=== PATIENT | female | born 1960 | race Caucasian/White ===

== ENCOUNTER 2020-10-17 16:53 | Inpatient (IN) | payer MEDICARE, MEDICAID, SELFPAY ==
[~2020-10-17] VITALS: Ht 152.4 cm; Wt 158.3 kg
--- NOTE | 2020-10-17 16:53 | NUR ---
Patient [facility] ALS, triaged by RN. Waiting for an available bed.
[2020-10-17 17:25] VITALS: BP 121/93
--- NOTE | 2020-10-17 17:25 | NUR ---
Patient BIBA ALS, transferred to bed 5. RN evaluating patient at bedside.
--- NOTE | 2020-10-17 17:30 | NUR ---
60 YO F BIBA FROM HOME FOR C/C OF DESAT TO 78% ON 3L NC. PT HAS COPD AND NORMALLY USES 3L O2 AT HOME. PT ARRIVES TO BED 5 SATING AT 93% ON 3L NC, AUDIBLE WHEEZING HEARD DURING RESPIRATION, PT UNABLE TO SPEAK IN FULL SENTENCES. PT STATES SHE HAS HAD A COUGH FOR 1 WEEK, DENIES ANY OTHER COVID SYMTPOMS OR EXPOSURE TO COVID. PT PLACED ON HIDE MILL WORKER/PULSE OX. BED LOCKED AND IN LOWEST POSITION. SIDE RAILS X2. MED HX: COPD, HTN, DM2 NKA
--- NOTE | 2020-10-17 17:41 | NUR ---
Patient's daughter: Ros Rodriguez [phone].
--- NOTE | 2020-10-17 18:00 | NUR ---
LABS DRAWN AND TAKEN TO LAB
[2020-10-17] MEDS ORDERED: ALBUTEROL SULFATE/IPRATROPIU 3 ML SOL IH ONE (18:20)
[2020-10-17] MEDS ORDERED: methylPREDNISolone SS 125 MG/2 ML VIAL IVP ONE (18:20)
--- NOTE | 2020-10-17 18:20 | NUR ---
PHILIPP SWAB COLLECTED AND TAKEN TO LAB
--- NOTE | 2020-10-17 18:27 | NUR ---
Dr. Zhou is evaluating the patient at bedside.
--- NOTE | 2020-10-17 18:40 | NUR ---
RAD AT BEDSIDE
[2020-10-17 18:52] LABS: BASOPHILS % (AUTO) 0.3 % (0.0-2.0); EOSINOPHILS % (AUTO) 0.3 % (0.0-4.0); HEMATOCRIT 32.9 % (36-48); HEMOGLOBIN 10.6 g/dL (12.0-16.0); LYMPHOCYTES # (AUTO) 1.2 K/uL (2.5-16.5); MEAN CORPUSCULAR HEMOGLOBIN 29 pg (27-31); MEAN CORPUSCULAR HGB CONC 32 g/dL (33-37); MEAN CORPUSCULAR VOLUME 89.4 fL (80-94); MONOCYTES # (AUTO) 0.7 K/uL (0.8-1.0); MONOCYTES % (AUTO) 8.9 % (1.7-9.3); NEUTROPHILS # (AUTO) 6.3 K/uL (1.8-7.7); NEUTROPHILS % (AUTO) 76.5 % (42.2-75.2); PLATELET COUNT (AUTO) 256 K/uL (140-450); RED BLOOD CELL COUNT(AUTO) 3.67 MIL/uL (4.20-5.40); RED CELL DISTRIBUTION WIDTH 15.7 % (11.6-13.7); WHITE BLOOD COUNT (AUTO) 8.3 K/uL (4.8-10.8)
--- NOTE | 2020-10-17 19:00 | NUR ---
RT AT BEDSIDE
[2020-10-17 19:13] LABS: ALBUMIN 2.9 g/dL (3.4-5.0); CARBON DIOXIDE 27.2 mmol/L (21-32); CREATININE 1.8 mg/dL (0.6-1.3); POTASSIUM 4.2 mmol/L (3.5-5.1); TOTAL BILIRUBIN 0.3 mg/dL (0.0-1.0)
--- NOTE | 2020-10-17 19:15 | NUR ---
REPORT GIVEN TO HERBER CARSON. TRANSFER OF CARE AT THIS TIME.
--- NOTE | 2020-10-17 19:15 | NUR ---
report recieved from tray da silva. transfer of care at this time.
--- NOTE | 2020-10-17 19:18 | NUR ---
pt expressed she would like a f/c placed, ermd said made aware and stated pt may have f/c placed. order carried out.
[2020-10-17] MEDS ORDERED: AZITHROMYCIN 500 MG in DEXTROSE 5% 250 ML IV ONE (19:20)
--- NOTE | 2020-10-17 19:31 | NUR ---
BIPAP ADMINISTRATION BY RT AT BEDSIDE
--- NOTE | 2020-10-17 19:35 | NUR ---
Receiced a verbal order from Dr Zhou to initiate Bipap on patient after ABG result. Setting 09/18, R12, Fio2 35%.
--- NOTE | 2020-10-17 19:40 | NUR ---
rt at bedside placing pt on bipap.
--- NOTE | 2020-10-17 20:15 | NUR ---
16 f f/c placed using sterile technique with another rn assistance. pt tolerated well. urine output 250 cc, clear and steven.
--- NOTE | 2020-10-17 20:28 | NUR ---
gave pt water per request. pt desats from 98 to 81 without bipap mask. pt placed back on mask right away. increased work of breathing observed. pt instructed to take slow deep breaths. pt at 99% after interventions.
[2020-10-17] MEDS ORDERED: cefTRIAXone 1,000 MG VIAL ONE (21:21)
[2020-10-17] MEDS ORDERED: AZITHROMYCIN 500 MG INJ VIAL IV ONE (21:41)
[2020-10-17] MEDS ORDERED: MAG SULF 2000 MG/WATER PREMIX 50 ML IV PRN (21:45)
--- NOTE | 2020-10-17 22:20 | NUR ---
rt called to reinforce bipap.
--- NOTE | 2020-10-17 22:57 | NUR ---
pt sitting up, states she feels ok. vss. bed locked in lowest position. side rails x2. increased work of breathing cont.
[2020-10-17] MEDS ORDERED: ALBUTEROL SULFATE/IPRATROPIU 3 ML SOL IH SCH (23:00)
--- NOTE | 2020-10-17 23:26 | NUR ---
pt stated she takes lantus at home for dm2. left msg to dr. justyn carrington for insulin order, waiting for call back .
--- NOTE | 2020-10-17 23:54 | NUR ---
RECEIVED CALL BACK FROM FOR LANTUS 20 UNITS BEFORE BED AND TO PLACE PT ON SLIDING SCALE. ORDERS CARRIED OUT.
[2020-10-18] MEDS: INSULIN LISPRO SLIDING SCALE 100 UNITS/ML VIAL SUBQ PRN ×3 (00:19→21:56)
--- NOTE | 2020-10-18 00:29 | NUR ---
PT STATED SHE FEELS SHE HAS TO URINATE, F/C ADJUSTED. PT FEELS BETTER AFTER ADJUSTMENT.
--- NOTE | 2020-10-18 01:18 | NUR ---
F/C REMOVED PER PT REQUEST. BEDSIDE COMMODE PROVIDED.
--- NOTE | 2020-10-18 01:18 | NUR ---
PT ASSISTED TO BEDSIDE COMMODE, UNABLE TO URINATE. PT SITTING UP IN BED PER REQUEST.
--- NOTE | 2020-10-18 01:25 | NUR ---
pt assisted to lay back in bed.
--- NOTE | 2020-10-18 01:33 | NUR ---
pt expressed she feels anxious and cannot sleep. helped pt into comfortable position, turned lights off. pt stated she still feels anxious and would like medication to help her relax. left a msg to . waiting for call back.
--- NOTE | 2020-10-18 01:41 | NUR ---
CALLED BACK RECEIVED ORDERS FOR XANAX 0.25 MG PO BID PRN. ORDERS CARRIED OUT.
[2020-10-18] MEDS: ALPRAZolam 0.25 MG TAB PO PRN ×3 (01:53→21:31)
--- NOTE | 2020-10-18 02:40 | NUR ---
RT AT BEDSIDE.
[2020-10-18] MEDS: ALBUTEROL SULFATE/IPRATROPIU 3 ML SOL IH SCH ×3 (02:44→13:00)
--- NOTE | 2020-10-18 03:15 | NUR ---
PT IS ANXIOUS, REMOVING BIPAP MASK, DESATS TO 86%. PT STATES SHE NEEDS TO URINATE, INSTRUCTED TO URINATE ON PAD AND WE CAN CHANGE HER AFTER. PT IS IN SIDE-LYING POSITION, INCREASED WORK OF BREATHING OBSERVED. PT IS SWEATING AND STATING SHE FEELS HOT. O2 SAT WITH BIPAP AT 90%. RT CALLED TO REINFORCE BIPAP MASK.
--- NOTE | 2020-10-18 04:15 | NUR ---
ANXIOUSNESS CONT. PT IS RESTLESS, PT CONTS TO REMOVE BIPAP. PT IN SIDE LYING POSITION. MSTOMASA NAVARRO. WAITING TO REPONSE.
--- NOTE | 2020-10-18 04:41 | NUR ---
PT IS YELLING AND CRYING STATING SHE FEELS ANXIOUS. WAITING FOR CALL BACK FROM DR. VELAZQUEZ. Addendum: 10/18/20 at 0443 by Onaro REDUCED STIMULI IN ROOM TO HELP REDUCE ANXIOUSNESS.
--- NOTE | 2020-10-18 04:46 | NUR ---
RECEIVED CALL BACK FROM DR. VELAZQUEZ, ORDER FOLLOWS- ATIVAN 2MG IVP Q4HRS PRN. ORDER CARRIED OUT.
[2020-10-18] MEDS: LORazepam 2 MG/ML VIAL IVP PRN ×3 (04:57→21:30)
--- NOTE | 2020-10-18 05:02 | NUR ---
PT GIVEN ATIVAN PRN ORDERED FOR ANXIOUSNESS. PT HAS STOPPED YELLING. PT IS IN SIDE-LYING POSITION, EYES CLOSED, EQUAL RISE AND FALL OF CHEST WALL. SIDE RAILS X2, AND BED LOCKED IN LOWEST POSITION.
--- NOTE | 2020-10-18 05:19 | NUR ---
RT AT BEDSIDE.
[2020-10-18 05:40] VITALS: BP 125/63
--- NOTE | 2020-10-18 05:45 | NUR ---
CHANGED PT. ONLY URINE OBSERVED. PT CLEANED, SHEETS CHANGED. PT IN STABLE CONDITION. VSS. BED LOCKED IN LOWEST POSITION, SIDE RAILS X2.
--- NOTE | 2020-10-18 06:00 | NUR ---
PT REMOVED BIPAP. RT REPOSITIONED.
--- NOTE | 2020-10-18 06:00 | NUR ---
PT MASK RE-FIT TO PT. PT HAD SOME INCREASED WOB AND SETTINGS WERE TITRATED TO 13/6 RATE FIO2 REMAIN THE SAME. ED RN AND ED DR AWARE. PT MAINTAINED SPO2 >90% AT THIS TIME. WILL ENDORSE TO DAYSHIFT.
--- NOTE | 2020-10-18 06:39 | NUR ---
F/C REINSERTED USING STERILE TECHINQUE. 600 CC OF CLEAR YELLOW URINE RETURNED. PT TOLERATED WELL.
[2020-10-18] MEDS: BUDESONIDE 0.5 MG/2 ML NEBU INH SCH (07:01)
--- NOTE | 2020-10-18 07:22 | NUR ---
PATIENT HAS BEEN SCREENED AND CATEGORIZED MODERATE NUTRITION RISK. PATIENT WILL BE SEEN WITHIN 3-5 DAYS OF ADMISSION. 10/20/20 - 10/22/20 KULWINDER LABOY MBA, RD
--- NOTE | 2020-10-18 07:30 | NUR ---
REPORT GIVEN TO HERBER ZEPEDA. TRANSFER OF CARE AT THIS TIME.
--- NOTE | 2020-10-18 07:47 | NUR ---
PT ALERT AND AWAKE, BREATHING LABORED AND EVEN ON BIPAP. ERMD MADE AWARE
[2020-10-18] MEDS ORDERED: CRUSHER, PILL MC ONE (08:16)
[2020-10-18] MEDS: DOCUSATE SODIUM 100 MG GELCAP PO SCH (08:18)
[2020-10-18] MEDS: DEXAMETHASONE 4 MG TAB PO SCH (08:18)
--- NOTE | 2020-10-18 08:24 | NUR ---
PT AOX3 TO NAME, , PLACE. PT TOOK OFF MASK AGAIN, PER PREVIOUS NURSE PT KEEPS TAKING OFF MASK. PT INFORMED MUST KEEP MASK ON.
[2020-10-18 10:31] LABS: BASOPHILS % (AUTO) 0.2 % (0.0-2.0); HEMATOCRIT 32.4 % (36-48); HEMOGLOBIN 10.6 g/dL (12.0-16.0); LYMPHOCYTES # (AUTO) 1.1 K/uL (2.5-16.5); LYMPHOCYTES % (AUTO) 13.7 % (20.5-51.1); MEAN CORPUSCULAR HEMOGLOBIN 29 pg (27-31); MEAN CORPUSCULAR HGB CONC 33 g/dL (33-37); MEAN CORPUSCULAR VOLUME 88.6 fL (80-94); MONOCYTES # (AUTO) 0.5 K/uL (0.8-1.0); MONOCYTES % (AUTO) 6.9 % (1.7-9.3); NEUTROPHILS # (AUTO) 6.2 K/uL (1.8-7.7); NEUTROPHILS % (AUTO) 79.2 % (42.2-75.2); PLATELET COUNT (AUTO) 279 K/uL (140-450); RED BLOOD CELL COUNT(AUTO) 3.66 MIL/uL (4.20-5.40); RED CELL DISTRIBUTION WIDTH 15.5 % (11.6-13.7); WHITE BLOOD COUNT (AUTO) 7.8 K/uL (4.8-10.8)
[2020-10-18 10:44] VITALS: BP 153/91
[2020-10-18 11:15] LABS: ALBUMIN 2.8 g/dL (3.4-5.0); ANION GAP 16.4 (8-16); CARBON DIOXIDE 24.5 mmol/L (21-32); CREATININE 1.2 mg/dL (0.6-1.3); POTASSIUM 4.9 mmol/L (3.5-5.1); TOTAL BILIRUBIN 0.2 mg/dL (0.0-1.0)
--- NOTE | 2020-10-18 11:41 | NUR ---
SOCIAL WORK NOTE: PATIENT HAS NO CONTACT INFORMATION. SW CONTACTED RN BUT NO EMERGENCY CONTACTS WERE AVAILABLE. Addendum: 10/19/20 at 1143 by Cirilo Hu Patient's Orientation Unable To Assess Information Provided By INDIAMAL MCCABE - DAUGHTER Comments SW WAS UNABLE TO MEET PATIENT AT BEDSIDE TO COMPLETE ASSESSMENT. SW COMPLETED ASSESSMENT WITH DAUGHTER. Youth Services Librarian, Realtionship and Phone Number [place] MCCABE DAUGHTER [phone] [facility] Power of Research Program Assistant No Does Patient Have a POLST No Identifying Problems No Social Work Triggers Is A Social Work Consult Needed No Mandate Report Filed No Explanation Of Identifying Problems PATIENT IS A 60-YEAR-OLD FEMALE ADMITTED FOR COVID. PATIENT HAS PMHX OF CARDIAC DISORDERS, COPD, DIABETES, AND HYPERTENSION. Admitted From Home Pre-Admission Level Of Functioning Status Assist With ADL Level Of Functioning Comment DAUGHTER REPORTED SHE ASSISTS PATIENT SHOWERING. Prior Resources/Services Used In Last 12 Months No Prior Resources Used Prior DME Home Oxygen Walker Dialysis Comments N/A Living Situation Lives With Family House Patient Had Caregiver No Home Support No Caregiver Issues Financial Issues No Known Financial Issue Referral To The Financial Counselor Needed No Factors/Needs No D/C Needs Identified Pt/Rep Participated In Discharge Plan Yes Patient/Family Agress With Discharge Plan Yes Discharge Plan Comments TENTATIVE DISCHARGE PLAN IS FOR PATIENT TO RETURN HOME. DC Plan Status Initiated
--- NOTE | 2020-10-18 13:00 | NUR ---
DR LABOY MADE AWARE PT STILL ALTERED. STATES THAT ORDER WAS FOR CONVALESCENT PLASMA NOT PRBC
--- NOTE | 2020-10-18 13:02 | NUR ---
Nina melendez in [facility] - 10/18/20 at 1602 by MEDJJ PER LAB DOES NOT HAVE CONVALESCENT PLASMA YET
--- NOTE | 2020-10-18 13:03 | NUR ---
PER LAB DOES NOT HAVE CONVALESCENT PLASMA YET
[2020-10-18 14:09] VITALS: BP 148/93
[2020-10-18] MEDS ORDERED: FLUO10CA21 PO (15:14)
[2020-10-18] MEDS ORDERED: FERR-21 PO (15:14)
[2020-10-18] MEDS ORDERED: BETA1CRE5 TP (15:14)
[2020-10-18] MEDS ORDERED: BENZ-196 PO (15:14)
[2020-10-18] MEDS ORDERED: INSU100S22 SUBQ (15:14)
[2020-10-18] MEDS ORDERED: CIPR500T4 PO (15:14)
[2020-10-18] MEDS ORDERED: CARI350T PO (15:14)
[2020-10-18] MEDS ORDERED: METF1TAB5 PO (15:14)
[2020-10-18] MEDS ORDERED: ACET-9536 PO (15:14)
[2020-10-18] MEDS ORDERED: CLON2TAB10 PO (15:14)
[2020-10-18] MEDS ORDERED: AMLO10TA89 PO (15:14)
[2020-10-18] MEDS ORDERED: IBUP200C97 PO (15:14)
[2020-10-18] MEDS ORDERED: METO50TA20 PO (15:14)
[2020-10-18] MEDS ORDERED: NITR0.4T2 SL (15:14)
[2020-10-18] MEDS ORDERED: ASPI-1205 PO (15:14)
[2020-10-18] MEDS ORDERED: SPIMDI INH (15:14)
[2020-10-18] MEDS ORDERED: CYCL0.052 OP (15:14)
[2020-10-18] MEDS ORDERED: FURO-570 PO (15:14)
[2020-10-18] MEDS ORDERED: OMEP20TC10 PO (15:14)
[2020-10-18] MEDS ORDERED: [UNRECOGNIZED DRUG - CODE] PO (15:14)
--- NOTE | 2020-10-18 16:02 | NUR ---
PT REMAINS CONFUSED, PLACED BACK ON BIPAP MASK MULTIPLE TIMES. O2 SATURATION 95% ON BIPAP
--- NOTE | 2020-10-18 17:19 | NUR ---
RT REMINDED BREATHING TREATMENT NOT COMPLETED
--- NOTE | 2020-10-18 18:00 | NUR ---
1300ML CLEAR URINE FROM CATH
--- NOTE | 2020-10-18 18:30 | NUR ---
dr rendon informed of pt status of continued confusion and taking off mask
[2020-10-18 19:00] VITALS: BP 138/84
--- NOTE | 2020-10-18 19:17 | NUR ---
REPORT GIVEN TO CHRISTIANO, TRANSFER OF CARE AT THIS TIME
--- NOTE | 2020-10-18 19:30 | NUR ---
REPORT RECEIVED FROM KATELYN CRAVEN FOR CONTINUITY OF CARE.
--- NOTE | 2020-10-18 20:00 | NUR ---
PT PRESENTS LAYING IN BED, ON BIPAP O2 SAT AT THIS TIME 94%. HEART RATE OF 124/MIN. RR OF 45/MIN. PT PRESENTS ANXIOUS AND RESTLESS ATTMEPTING TO REMOVE HER BIPAP MASK. ON SOFT RESTRAINTS. PER HERBER ZEPEDA PT WAS PLACED DUE TO CONSTANT REMOVAL OF BIPAP AND DESATURATION. ON CARDIAC MONITORING, BP MONITORING AND PULSE OXIMETRY. BED LOCKED AND IN LOWEST POSITION. PT WAS REPOSITIONED AND NEW GOWN PLACED ON PT. CALL LIGHT WAS GIVEN AND AT ARMS LENGTH. CIRCULATION CHECKS AT THIS TIME SKIN IS INTACT AND RADIAL PULSES +2 STRONG BILAT. ALL NEEDS MEET PRIOR TO EXIT WILL CONTINUE TO MONITOR.
--- NOTE | 2020-10-18 20:16 | NUR ---
Pt was repositioned and adjusted for comfort. Still continues to be anxoius/restless. Will continue to monitor.
[2020-10-18] MEDS ORDERED: AZITHROMYCIN 500 MG INJ VIAL IV ONE (20:17)
[2020-10-18] MEDS: INSULIN LANTUS 100 UNITS/ML 10 ML VIAL SUBQ SCH (20:30)
[2020-10-18] MEDS: AZITHROMYCIN 500 MG in DEXTROSE 5% 250 ML IV SCH (21:00)
--- NOTE | 2020-10-18 21:25 | NUR ---
Pt pulled on her IV site. Bleeding was noted at site pressure was applied and dressing was placed. New IV started on L AC 20 G, site was patent flushed with 10 ml of 0.9% NS. No c/o pain or discomfort.
[2020-10-18] MEDS: QUEtiapine FUMARATE 25 MG TAB PO SCH (21:29)
--- NOTE | 2020-10-18 22:18 | NUR ---
Pt was repositioned and adjusted for comfort. Still continues to be anxoius/restless re-adjusted BIPAP mask as pt continues to remove BIPAP mask. Will continue to monitor.
--- NOTE | 2020-10-18 23:00 | NUR ---
Spoke with Christiano Ruddy (Daughter) contact info: and provided updated status.
--- NOTE | 2020-10-18 23:15 | NUR ---
CALLED RT FOR EVALUATION OF PT.
--- NOTE | 2020-10-18 23:20 | NUR ---
Respiratory Therapist at bedside for respiratory intervention. Patient still anxious/restless attempting to remove BIPAP at this time. Pulling an tugging on tubing. Called Dr. Bales for orders at [facility] group: ext: "[phone]" spoke with Rica stated she would page Dr. Glover.
[2020-10-18] MEDS ORDERED: DEXTROSE 50% 50 ML SYR IVP PRN (23:30)
[2020-10-18] MEDS ORDERED: HALOPERIDOL IM 5 MG/ML VIAL IM SCH (23:30)
[2020-10-18] MEDS ORDERED: INSULIN LISPRO SLIDING SCALE 100 UNITS/ML VIAL SUBQ PRN (23:30)
--- NOTE | 2020-10-18 23:30 | NUR ---
CALLED TO BEDSIDE PT PULLED BIPAP MASK OFF. MASK WAS MANGKED AND REPLACED W/ A NEW ONE. PT WAS RE-ASSURED AND ENCOURAGED TO KEEP MASK ON. PT APPEARS TO BE VERY ANXIOUS/RESTLESS. MASK WAS REPLACED ON PT MULTIPLE TIMES AT THIS TIME DUE TO PT REMOVING MASK.
--- NOTE | 2020-10-18 23:36 | NUR ---
Recived called back from Dr. Bales and notified that pt continues to have severe anxiety/restlessness and that pt was given Ativan 2mg IVP, Xanax 0.25mg po and Seroquel 12.5mg. Gave new orders for Haldol 5mg IM.
[2020-10-18 23:55] VITALS: BP 147/59
[2020-10-19] VITALS (13 sets, daily range): BP systolic 105–173; BP diastolic 65–79
--- NOTE | 2020-10-19 00:35 | NUR ---
Pt was repositioned and adjusted for comfort. Still continues to be anxoius/restless re-adjusted BIPAP mask as pt continues to remove BIPAP mask. Will continue to monitor.
--- NOTE | 2020-10-19 01:00 | NUR ---
Patient will be admitted to care of Dr. Samson. Admited to Telemetry. Will go to room 119B. Belongings list completed. Report given to Loretta RN for continuity of care. All covid precautions in place. Taken by RT and EMT.
--- NOTE | 2020-10-19 01:10 | NUR ---
ADMITTED 60 F, VIA GURNEY FROM ER. AOX1-2, WITH CONFUSION, ON BIPAP, O2 SAT 94%, ISO PRECAUTION IN PLACE, SAFETY MEASURES IN PLACE, PLAN OF CARE DISCUSSED, CALL LIGHT WITHIN REACH. PT IS TRYING TO TAKE OFF HER BIPAP, EDUCATED PT THE IMPORTANCE OF O2/BIPAP, STILL PT, TRIED TO TAKE OFF, STAYED W/ PATIENT UNTIL SOMEONE REPLACES ME.
[2020-10-19] MEDS: LORazepam 2 MG/ML VIAL IVP PRN ×2 (01:33→12:06)
--- NOTE | 2020-10-19 01:33 | NUR ---
PT IS ANXIOUS, ATIVAN PRN GIVEN ORDERED, PT IS ON 1:1 SITTER ORDERED.
[2020-10-19] MEDS ORDERED: HALOPERIDOL IM 5 MG/ML VIAL IM ONE (04:30)
[2020-10-19] MEDS ORDERED: QUEtiapine FUMARATE 25 MG TAB PO SCH (04:40)
--- NOTE | 2020-10-19 05:01 | NUR ---
PT IS AGITATED, CONSTANTLY MOVING AND TRIES TO TAKE OFF HER BIPAP, EVEN W/ SITTER, PT IS SO STRONG, INFORMED TOWER AIR TRAFFIC CONTROL SPECIALIST DR. RAUSCH RE:PT CONDITION, ORDERED HALDOL IM X1 AND SEROQUEL 25MG, NOTED AND CARRIED OUT.
[2020-10-19] MEDS: QUEtiapine FUMARATE 25 MG TAB PO PRN (06:31)
[2020-10-19] MEDS: BLOOD GLUCOSE MONITORING 1 DEV DEV FS SCH ×4 (06:36→21:49)
[2020-10-19] MEDS: INSULIN LISPRO SLIDING SCALE 100 UNITS/ML VIAL SUBQ PRN ×3 (06:38→21:51)
--- NOTE | 2020-10-19 06:39 | NUR ---
BLOOD SUGAR 333, HUMALOG 8 U GIVEN PER SLIDING SCALE, CON'T ON 1:1 SITTER, O2 SAT WNL, CALL LIGHT WITHIN REACH. PERINEAL CARE RENDERED, TOLERATED WELL, BM X1.
--- NOTE | 2020-10-19 07:30 | NUR ---
PT RM, ENDORSED TO AM SHIFT RN FOR CONTINUITY OF CARE. ALSO ENDORSED THAT FAMILY REFUSED PLASMA CONVALESCENT, THEY WILL LET US KNOW IF THEY WANT TO TAKE IT IN THE FUTURE, BUT NOT FOR NOW.
--- NOTE | 2020-10-19 07:31 | NUR ---
RECEIVED REPORT FROM SALES ADVISORY MANAGER RN FOR CONTINUITY OF CARE. PATIENT IS BEDBOUND, WITH SITTER AT BEDSIDE. AGITATED. EYES CLOSE AND TRYING TO PULL OUT THE BIPAP, EVEN WITH SITTER. PER SALES ADVISORY MANAGER RN, SEROQUEL WAS GIVEN @ 0631. RESPIRATORY RATE 30, VERY CONFUSED. O2 SAT 92%. WILL CONTINUE TO MONITOR.
[2020-10-19 07:41] LABS: HEMOGLOBIN 10.7 g/dL (12.0-16.0); LYMPHOCYTES # (AUTO) 1.1 K/uL (2.5-16.5); LYMPHOCYTES % (AUTO) 7.3 % (20.5-51.1); MEAN CORPUSCULAR HEMOGLOBIN 29 pg (27-31); MEAN CORPUSCULAR HGB CONC 32 g/dL (33-37); MEAN CORPUSCULAR VOLUME 89.2 fL (80-94); MONOCYTES # (AUTO) 1.7 K/uL (0.8-1.0); MONOCYTES % (AUTO) 11.8 % (1.7-9.3); NEUTROPHILS # (AUTO) 11.6 K/uL (1.8-7.7); NEUTROPHILS % (AUTO) 80.9 % (42.2-75.2); PLATELET COUNT (AUTO) 396 K/uL (140-450); RED CELL DISTRIBUTION WIDTH 15.7 % (11.6-13.7); WHITE BLOOD COUNT (AUTO) 14.4 K/uL (4.8-10.8)
[2020-10-19 08:21] LABS: ANION GAP 18.5 (8-16); CARBON DIOXIDE 23.4 mmol/L (21-32); CREATININE 1.2 mg/dL (0.6-1.3); POTASSIUM 4.9 mmol/L (3.5-5.1); TOTAL BILIRUBIN 0.4 mg/dL (0.0-1.0)
[2020-10-19] MEDS: ALBUTEROL SULFATE/IPRATROPIU 3 ML SOL IH SCH ×3 (08:42→21:48)
[2020-10-19] MEDS: BUDESONIDE 0.5 MG/2 ML NEBU INH SCH ×2 (08:42→21:48)
[2020-10-19] MEDS ORDERED: INSULIN LANTUS 100 UNITS/ML 10 ML VIAL SUBQ SCH (09:00)
[2020-10-19] MEDS: FUROSEMIDE 20 MG/2 ML VIAL IVP SCH (09:56)
--- NOTE | 2020-10-19 09:56 | NUR ---
LASIX GIVEN VIA IVP. PATIENT ASLEEP. ORAL MEDICATIONS WASTED. EARLIER FEVER WAS NOTED BUT TEMP COOL DOWN AFTER COOLING MEASURES/ICE PACKS. PATIENT IS ON BIPAP, O2 SAT 91%. SITTER AT BEDSIDE. WILL CONTINUE TO MONITOR.
[2020-10-19] MEDS: DOCUSATE SODIUM 100 MG GELCAP PO SCH ×2 (09:57→09:58)
[2020-10-19] MEDS: QUEtiapine FUMARATE 25 MG TAB PO SCH ×3 (09:57→21:26)
[2020-10-19] MEDS: DEXAMETHASONE 4 MG TAB PO SCH ×2 (09:57→09:58)
[2020-10-19] MEDS: APIXABAN 2.5 MG TAB PO SCH ×2 (09:57→21:26)
[2020-10-19] MEDS ORDERED: ACETAMINOPHEN 650 MG SUPP RC ONE (11:50)
[2020-10-19] MEDS ORDERED: ACETAMINOPHEN 650 MG SUPP RC PRN (11:50)
--- NOTE | 2020-10-19 11:50 | NUR ---
CALLED TO BEDSIDE BY RT JASSI TO ASSESS THE PATIENT. PT ON BIPAP AT 100% WITH RR IN THE HIGH 30S, SLIGHTLY AROUSABLE AND FEBRILE. HR 130S BP 145/68. ADMINISTERED 2MG ATIVAN IVP AND RECTAL ACETAMINOPHEN SUPPOSITORY PER MD ORDER WITH NI IMPROVEMENT UPON ATIVAN ADMINISTRATION. MD LEONARD WAS ROUNDING ON THE PATIENT WHEN I CALLED FOR POSSIBLE INTUBATION.
--- NOTE | 2020-10-19 12:10 | NUR ---
RAPID RESPONSE CALLED TO GET ALL MEDICAL PERSONNEL TO THE ROOM FOR INTUBATION. PT RR 35-40 ON 100% BIPAP WITH SPO2 85%. DIFFICULT INTUBATION . 20 ETOMIDATE AND 40 OF ROCURONIUM ADMINISTERED. PT INTUBATED AT 1220, 24CM AT THE LIP, SIZE 7.5.
[2020-10-19] MEDS ORDERED: ETOMIDATE 20 MG/10 ML VIAL IVP ONE (12:16)
[2020-10-19] MEDS ORDERED: ROCURONIUM 50 MG/5 ML VIAL IV ONE (12:17)
--- NOTE | 2020-10-19 12:20 | NUR ---
OG TUBE PLACED, KUB AND CXR STAT PLACED. BSWR ORDER FROM MD LEONARD PLACED. VENT SETTINGS A/C PRVC FIO2 100%, VT 350, PEEP 12, RATE OF 22. SPO2 92%.
[2020-10-19] MEDS ORDERED: PROPOFOL 1000 MG/100 ML PREMIX 100 ML IV ONE (12:26)
--- NOTE | 2020-10-19 12:31 | NUR ---
PT INTUBATED BY , 7.5 ETT SECURE @25 TEETH/GUM. COLOR CHANGED DETECTED ON CO2 DETECTOR. BILATERAL BREATH SOUNDS HEARD ON AUSCULTATION. CXR TO BE ORDERED TO CONFIRM PROPER PLACEMENT.
[2020-10-19] MEDS: PROPOFOL 1000 MG/100 ML PREMIX 100 ML IV PRN ×4 (12:44→23:35)
[2020-10-19] MEDS: NACL 0.9% 1,000 ML IV SCH ×2 (12:47→18:43)
--- NOTE | 2020-10-19 13:40 | NUR ---
UPDATED PTS' DAUGHTER VIA PHONE REGARDING PATIENT'S STATUS AND INTUBATION AT THIS TIME. DAUGHTER VERBALIZED UNDERSTANDING, ALL QUESTIONS ANSWERED. LET HER KNOW THAT SHE WILL BE TRANSFERRED TO ICU BY THE END OF THE SHIFT AND CAN CALL BETWEEN THE HOURS OF 1-2PM AND 11P-12A FOR UPDATES IF NOT CALLED BEFORE THEN.
--- NOTE | 2020-10-19 14:19 | NUR ---
ETT PULLED BACK DUE TO INADEQUATE PLACEMENT ON CXR. ETT 7.5 NOW SECURED @22 TEETH/GUM. NURSE MADE AWARE.
[2020-10-19] MEDS: INSULIN LANTUS 100 UNITS/ML 10 ML VIAL SUBQ SCH (14:25)
--- NOTE | 2020-10-19 14:39 | NUR ---
GAVE TELEPHONE READ BACK RESULTS OF ABG TO DR. WOOD. DR STATES TO INCREASE VT TO 500 AND DECREASE RATE TO 20. REPEAT ABG TOMORROW.
--- NOTE | 2020-10-19 15:04 | NUR ---
VENT SETTINGS CHANGED PER MD LEONARD, VT FROM 350 TO 500 AND PEEP FROM 12 TO 8. PT SPO2 IS 100% ON 100% FIO2. PT TOLERATING WELL. RADIOLOGY FOR STAT CXR AT BEDSIDE FOR REVERIFICATION OF PLACEMENT OF ETT.
--- NOTE | 2020-10-19 15:04 | NUR ---
PER VENT SETTINGS CHANGED NEW SETTINGS: PRVC 20, VT500, PEEP TITRATED TO 8cmH2O AND FIO2 100%. PEAK PRESSURES EXPLAINED TO AND PHYSICIAN STATES TO PLACE PT ON THESE VENT SETTINGS. CHANGES EXPLAINED TO NURSE. WILL CONTINUE TO MONITOR.
--- NOTE | 2020-10-19 16:19 | NUR ---
UPDATED DAUGHTER, , REGARDING PICC LINE PLACEMENT ORDERED BY MD WHICH SHE CONSENTED TO AND PT HAS A HISTORY OF PICC PLACEMENT X1 YEAR. EDUCATED ON PT MOVING TO ICU BY THE END OF SHIFT. ANSWERED ALL QUESTIONS, VERBALIZED UNDERSTANDING.
--- NOTE | 2020-10-19 18:30 | NUR ---
PT REMAINS ON DOCUMENTED VENT SETTINGS. PT NOT IN ANY DISTRESS AT THIS TIME. ETT IS SECURE WITH A PATENT AIRWAY.
--- NOTE | 2020-10-19 18:44 | NUR ---
STARTED A NEW BOTTLE OF PROPOFOL, CONTINUE WITH 35 MCG/KG/MIN AND STARTED A NEW BAG IVF NS AT 60 ML/HR. CHANGED ALL TUBINGS.
--- NOTE | 2020-10-19 19:25 | NUR ---
RECEIVED BEDSIDE REPORT FROM MILLA CRAVEN. PATIENT SEDATED RASS -3. ETT TO VENT AC/PCR FIO2 100%, PEEP 8, RATE 20, VT 500, SATURATING 94%. NO DISTRESS NOTED. DRY WEIGHT 158.7 KG. SKIN IS WARM AND DRY. LEFT AC 20G NOTED INFUSING PROPOFOL 35MCG/KG/MIN AND NS AT 60CC/HR. OGTUBE NOTED. FOELY CATHETER DRAINING YELLOW URINE NOTED. PLAN OF CARE UP TO DATE. ALL SAFETY MEASURES IN PLACE. BED IS AT LOW POSITION. CALL LIGHT WITHIN REACH. WILL CONTINUE TO MONITOR.
--- NOTE | 2020-10-19 19:40 | NUR ---
RECEIVED PATIENT FROM DAY SHIFT ON DOCUMENTE VENT SETTINGS VENT PLUGGED INTO RED OUTLET. BMV AT BEDSIDE.ETT SECURED. ALARMS SET. WILL CONT TO MONITOR
[2020-10-19] MEDS: AZITHROMYCIN 500 MG in DEXTROSE 5% 250 ML IV SCH (21:27)
--- NOTE | 2020-10-19 21:30 | NUR ---
CHECKED OGTUBE RESIDUAL. OBTAINED 0CC. PROVIDED ORAL CARE. PATIENT TOLERATED IT WELL. WILL CONTINUE TO MONITOR
--- NOTE | 2020-10-19 21:40 | NUR ---
ALL SCHEDULED MEDS WERE GIVEN PER ORDER NO ASE NOTED. WILL CONTINUE TO MONITOR
--- NOTE | 2020-10-19 22:00 | NUR ---
PT IS SEDATED. REMOVE RESTRAINT FOR NOW
[2020-10-20] VITALS (28 sets, daily range): BP systolic 133–159; BP diastolic 68–95
[2020-10-20] MEDS: ALBUTEROL SULFATE/IPRATROPIU 3 ML SOL IH SCH ×3 (00:10→20:16)
[2020-10-20] MEDS: PROPOFOL 1000 MG/100 ML PREMIX 100 ML IV PRN ×9 (02:34→23:57)
--- NOTE | 2020-10-20 03:30 | NUR ---
PROVIDED MORNING CARE
--- NOTE | 2020-10-20 05:00 | NUR ---
PATIENT HAS A TEMPERATURE OF 100.4 PRN TYLENOL GIVEN PER ORDER. WILL CONTINUE TO MONITOR
[2020-10-20] MEDS: ACETAMINOPHEN 325 MG TAB PO PRN (05:05)
[2020-10-20 05:44] LABS: ALBUMIN 2.6 g/dL (3.4-5.0); ANION GAP 12.5 (8-16); CARBON DIOXIDE 28.2 mmol/L (21-32); CREATININE 1.1 mg/dL (0.6-1.3); POTASSIUM 4.7 mmol/L (3.5-5.1); TOTAL BILIRUBIN 0.6 mg/dL (0.0-1.0)
--- NOTE | 2020-10-20 06:00 | NUR ---
RECHECKED PATIENT TEMP. PT TEMP 99.1
[2020-10-20 06:23] LABS: BASOPHILS % (AUTO) 0.4 % (0.0-2.0); EOSINOPHILS % (AUTO) 0.1 % (0.0-4.0); HEMOGLOBIN 10.3 g/dL (12.0-16.0); LYMPHOCYTES # (AUTO) 0.8 K/uL (2.5-16.5); LYMPHOCYTES % (AUTO) 8.6 % (20.5-51.1); MEAN CORPUSCULAR HEMOGLOBIN 29 pg (27-31); MEAN CORPUSCULAR HGB CONC 32 g/dL (33-37); MEAN CORPUSCULAR VOLUME 89.9 fL (80-94); MONOCYTES # (AUTO) 0.9 K/uL (0.8-1.0); MONOCYTES % (AUTO) 8.8 % (1.7-9.3); NEUTROPHILS % (AUTO) 82.1 % (42.2-75.2); PLATELET COUNT (AUTO) 372 K/uL (140-450); RED BLOOD CELL COUNT(AUTO) 3.56 MIL/uL (4.20-5.40); RED CELL DISTRIBUTION WIDTH 15.8 % (11.6-13.7); WHITE BLOOD COUNT (AUTO) 9.8 K/uL (4.8-10.8)
[2020-10-20] MEDS: BLOOD GLUCOSE MONITORING 1 DEV DEV FS SCH ×4 (06:39→21:00)
[2020-10-20] MEDS: INSULIN LISPRO SLIDING SCALE 100 UNITS/ML VIAL SUBQ PRN ×3 (06:41→17:37)
--- NOTE | 2020-10-20 06:59 | NUR ---
FNS CONSULT FOR TUBE FEEDING RECEIVED ON 10/20/20. PATIENT HAS BEEN RE-SCREENED BY RD AND NOW CATEGORIZED HIGH NUTRITION RISK. PATIENT WILL BE SEEN TODAY 10/20/[address] ASSESSMENT/RECOMMENDATION FOR TF WILL BE CHARTED. KULWINDER LABOY MBA, RD
--- NOTE | 2020-10-20 07:15 | NUR ---
RECEIVED REPORT FROM NIGHT RN FOR CONTINUITY OF CARE,PATIENT IS RIGHT SIDE-LYING, OFFLOAD PRESSURE WITH PILLOWS. PATIENT IS SEDATED RASS -3, FLACC 0, RESPIRATION EVEN, SHALLOW, TACHYPNEA,LUNGS SOUNDS DIMINISHED, ON ETT TO VENT, A/C PRVC FIO2 100 RATE 20 PEEP 8, SPO2 99%. SKIN WARM TO TOUCH, REDNESS ON UNDER FLAP OF ABDOMEN, WILL NOTIFY MD DURING ROUNDING, APPLIED INTERDRY CLOTH. IV ON LAC 20G, CLEAN AND INTACT, INFUSING PROPOFOL AT 35 MCG/KG/MIN AND NS 60ML/HR, PICC PLACEMENT ORDER RECEIVED AND PENDING FOR MD SIGNATURE. GEORGE IN PLACE, DRAINING YELLOW URINE WITH GRAVITY, YELLOW CLOUDY URINE IN BAG NOTED. OGT IN PLACE, PENDING FOR FNS CONSULT TO START FEEDING. BILATERAL SOFT RESTRAINTS IN PLACE, CAPILLARY REFILLED < 3 SECONDS, NO SIGNS OF INJURY. SAFETY MEASURES IN PLACE, PLUG SAW OPERATOR IN PLACE, BED IN LOW POSITION, HOB ELEVATED 35 DEGREE, AND BED LOCKED. WILL CONTINUE TO MONITOR.
--- NOTE | 2020-10-20 07:27 | NUR ---
ENDORSED PATIENT TO DAY SHIFT NURSE AT BEDSIDE FOR CONTINUITY OF CARE
[2020-10-20] MEDS: BUDESONIDE 0.5 MG/2 ML NEBU INH SCH ×2 (07:55→20:15)
--- NOTE | 2020-10-20 08:46 | NUR ---
10/20/20 RD INITIAL ASSESSMENT COMPLETED PLEASE REFER TO NUTRITION ASSESSMENT UNDER CARE ACTIVITY FOR ESTIMATED NUTRITIONAL NEEDS. RD RECOMMENDATIONS: 1. RECOMMEND D/C REGULAR DIET; INAPPROPRIATE FOR CURRENT PT MEDICAL CONDITION. 2. RECOMMEND TF GLUCERNA 1.2@70MLS/HR - PROVIDES 2016KCALS & 100GM PROTEIN; SUFFICIENT TO MEET 100% OF PT NUTRITIONAL ESTIMATED NEEDS. (FOR RATE 70MLS/HR EQUIVALENT IS 16 DROPS/MINUTE IN CASE OF GRAVITY TUBE FEEDING) 3. START TF @30 MLS/HR. ADVANCE, TOLERATED, BY 10MLS/HR Q8 HRS TO REACH GOAL RATE OF 70. 4. RECOMMEND WATER FLUSH 150MLS Q 6HRS. 5. F/U 2-3 DAYS; HIGH RISK KULWINDER LABOY MBA, RD
[2020-10-20] MEDS ORDERED: CRUSHER, PILL MC ONE (08:50)
[2020-10-20] MEDS: FUROSEMIDE 20 MG/2 ML VIAL IVP SCH (08:55)
[2020-10-20] MEDS: QUEtiapine FUMARATE 25 MG TAB PO SCH ×2 (08:56→20:44)
[2020-10-20] MEDS: DOCUSATE SODIUM 100 MG GELCAP PO SCH (08:56)
[2020-10-20] MEDS: APIXABAN 2.5 MG TAB PO SCH ×2 (08:58→20:45)
[2020-10-20] MEDS: DEXAMETHASONE 4 MG TAB PO SCH (08:58)
[2020-10-20] MEDS: INSULIN LANTUS 100 UNITS/ML 10 ML VIAL SUBQ SCH (09:24)
--- NOTE | 2020-10-20 09:34 | NUR ---
CHECKED BLOOD SUGAR, 274, OGT RESIDUAL 20 ML,FLUSHED OGT TUBE WITH 15CC. ADMINISTERED MEDS PER MD ORDER, FLUSHED BEFORE AND AFTER MEDS. PROVIDED HYGIENE CARE, ORAL CARE, AND GEORGE CARE, CHG BATH PROVIDED. TEMP 99.5, PULSE 87, BP 159/87, ETT TO VENT, A/C PRVC FIO2 100 RATE 20 PEEP 8, SPO2 98%, FLACC 0. SAFETY MEASURES IN PLACE. WILL CONTINUE TO MONITOR.
--- NOTE | 2020-10-20 10:45 | NUR ---
DR LEONARD IS ROUNDING ON PATIENT, OBTAINED MD SIGNATURE FOR PICC LINE PLACEMENT. RECEIVED VERBAL ORDER FOR SECONDARY SEDATION VERSED RASS -3, WILL INPUT ORDER ACCORDINGLY.
--- NOTE | 2020-10-20 11:00 | NUR ---
CALLED [facility], INFORMED ORDER FOR PICC LINE PLACEMENT, PICC LINE RN IS EDUIN, AND TOLD THAT ETA IS AROUND [phone] TODAY.
[2020-10-20] MEDS ORDERED: MIDAZOLAM MDV 50 MG in NACL 0.9% 40 ML IV PRN (11:05)
[2020-10-20] MEDS ORDERED: MIDAZOLAM MDV 100 MG in NACL 0.9% 80 ML IV PRN (11:20)
--- NOTE | 2020-10-20 11:48 | NUR ---
DAUGHTER, TINA CALL CALLED, UPDATED HER ON PATIENT'S CONDITION.
--- NOTE | 2020-10-20 12:00 | NUR ---
CHECKED BLOOD SUGAR, 295, COVERED WITH 6 UNITS PER MD SLIDING SCALE.
--- NOTE | 2020-10-20 13:11 | NUR ---
RECEIVED [employer] CELL PHONE FROM SECURITY, WILL PLACE IT IN PATIENT'S ROOM PER DAUGHTER REQUESTED.
--- NOTE | 2020-10-20 16:21 | NUR ---
DR APARICIO IS ROUNDING ON PATIENT.
--- NOTE | 2020-10-20 16:45 | NUR ---
CHECKED BLOOD SUGAR, 323, COVERED 8 UNITS PER MD SLIDING SCALE, NO S/S OF HYPOGLYCEMIA, WILL CONTINUE TO MONITOR.
--- NOTE | 2020-10-20 20:16 | NUR ---
RECEIVED PATIENT FROM AM SHIFT. PATIENT WAS SEEN AND ASSESSED. FOUND PT IN SUPINE POSITION. PATIENT IS INTUBATED WITH ETT SIZE 7.5 AND SECURED WITH ANCHOR-FAST AT 23cm. PATIENT IS ON VENT SETTINGS: AC/PRVC RR 20, VT 500, PEEP 8, FiO2 85% WITH SPO2 OF 97%. AMBU BAG AT BEDSIDE. VENT IS PLUGGED IN RED OUTLET. ALARMS SET AND AUDIBLE TO ENVIRONMENT. SUCTIONED SMALL AMOUNT OF WHITE THIN SECRETIONS FROM ETT. AIRWAY IS PATENT. AUSCULTATION REVEALS BILATERAL DIMINISHED BREATH SOUNDS. PATIENT IS IN NO APPARENT RESPIRATORY DISTRESS AT THIS TIME. HHN TX GIVEN AND PT TOLERATING WELL. WILL CONTINUE TO MONITOR PATIENT.
[2020-10-20] MEDS: AZITHROMYCIN 500 MG in DEXTROSE 5% 250 ML IV SCH (20:45)
--- NOTE | 2020-10-20 20:48 | NUR ---
FOUND PT'S PHONE ON THE FLOOR ON A VIDEO CALL WITH FAMILY. PHONE WENT OFF. FAMILY CALLED THE NURSING STATION AND SHE WAS INFORMED PT'S PHONE IS OFF. FAMILY MEMBER ASKED HOW PT IS DOING AND SHE WAS TOLD TO CALL BACK LATER BECAUSE RN IS BUSY AT THIS TIME. RN WAS NOTIFIED.
[2020-10-20] MEDS: NACL 0.9% 1,000 ML IV SCH (22:00)
--- NOTE | 2020-10-20 23:10 | NUR ---
TITRATED FiO2 FROM 85% TO 80%. SPO2 98%. PT TOLERATING WELL. RN NOTIFIED. WILL CONTINUE TO MONITOR PT.
[2020-10-21] VITALS (19 sets, daily range): BP systolic 98–149; BP diastolic 57–88
[2020-10-21] MEDS: INSULIN LISPRO SLIDING SCALE 100 UNITS/ML VIAL SUBQ PRN ×3 (00:19→21:23)
[2020-10-21] MEDS: ALBUTEROL SULFATE/IPRATROPIU 3 ML SOL IH SCH ×4 (02:11→19:10)
--- NOTE | 2020-10-21 03:43 | NUR ---
TITRATED FiO2 FROM 80% TO 70%. SPO2 97%. PT TOLERATING WELL. RN NOTIFIED. WILL CONTINUE TO MONITOR PT.
[2020-10-21] MEDS: PROPOFOL 1000 MG/100 ML PREMIX 100 ML IV PRN ×5 (04:52→23:46)
[2020-10-21] MEDS: BUDESONIDE 0.5 MG/2 ML NEBU INH SCH ×2 (07:00→19:51)
[2020-10-21 07:28] LABS: ALBUMIN 2.2 g/dL (3.4-5.0); ANION GAP 11.2 (8-16); CARBON DIOXIDE 28.1 mmol/L (21-32); CREATININE 0.7 mg/dL (0.6-1.3); POTASSIUM 4.3 mmol/L (3.5-5.1); TOTAL BILIRUBIN 0.5 mg/dL (0.0-1.0)
[2020-10-21] MEDS: BLOOD GLUCOSE MONITORING 1 DEV DEV FS SCH ×4 (07:30→21:23)
--- NOTE | 2020-10-21 07:56 | NUR ---
RECEIVED INTUBATED WITH A 7.5 ETT SECURED @23 TEETH/GUM ON VENT. SETTINGS: PRVC 20, VT 500, PEEP 5 AND FIO2 TITRATED TO 60%. PT IS MOVING AROUND IN BED AGITATED AND NON SYNCHRONOUS WITH VENT. ALARMS ON AND FUNCTIONING. VENT IS PLUGGED INTO A RED OUTLET. AMBU BAG IS PRESENT NEAR BEDSIDE. WILL CONTINUE TO MONITOR.
[2020-10-21] MEDS: LORazepam 2 MG/ML VIAL IVP PRN (09:18)
[2020-10-21] MEDS: QUEtiapine FUMARATE 25 MG TAB PO SCH ×2 (09:30→21:12)
--- NOTE | 2020-10-21 10:25 | NUR ---
PT AGITATED MOVING AROUND IN BED NON SYNCHRONOUS WITH VENT. MULTIPLE MODES OF VENTILATION ATTEMPTED WITHOUT SUCCESS. PT SWITCHED TO PC DUE TO EXCESSIVELY HIGH PEAK PRESSURES/PLATEAU PRESSURES. NEW SETTINGS: Pinsp 30, R20, PEEP 8 AND FIO2 60%. VENTILATING PT VTE 400-430ml. WILL CONTINUE TO MONITOR.
[2020-10-21] MEDS: DEXAMETHASONE 4 MG TAB PO SCH (10:45)
--- NOTE | 2020-10-21 11:00 | NUR ---
PT INCREASED AGITATE TRY TO GET OUT OF BED AND PULL OUT THE LINE.INCREASE THE SEDATION AND GIVE MED ORDER SHE REMAIN AGITATED . AISHA MARC WAS CALL. HE ORDERED TO GIVE VECURENIUM 20 MG IV PUSH..
[2020-10-21] MEDS: APIXABAN 2.5 MG TAB PO SCH ×2 (11:02→21:12)
[2020-10-21] MEDS: FUROSEMIDE 20 MG/2 ML VIAL IVP SCH (11:07)
[2020-10-21] MEDS: DOCUSATE 100 MG/10 ML UDC GT SCH (11:09)
[2020-10-21] MEDS: ALPRAZolam 0.25 MG TAB PO PRN (11:10)
--- NOTE | 2020-10-21 11:20 | NUR ---
VECURENIUM 20MG GIVEN ORDERED.
[2020-10-21] MEDS: INSULIN LANTUS 100 UNITS/ML 10 ML VIAL SUBQ SCH (11:22)
--- NOTE | 2020-10-21 11:28 | NUR ---
FIO2 INCREASED TO 100% DUE TO SPO2 LOW 75%, NURSE MADE AWARE.
--- NOTE | 2020-10-21 11:30 | NUR ---
PT CALM SLEEPING, , DECREASE O2 SAT 77% RT WAS CALL TO MANAGE THE O2 SATURATION. .
[2020-10-21] MEDS ORDERED: VECURONIUM 10 MG VIAL IVP SCH (12:00)
--- NOTE | 2020-10-21 12:30 | NUR ---
PT. ADMITTED WITH LOW ELOY SCALE AND INTERTRIGO TO ABDOMINAL FOLD. POC DISCUSSED WITH PRIMARY RN. -CLEANSE ABDOMINAL FOLDS WITH MILD SOAP AND WATER, PAT DRY, APPLY NYSTATIN POWDERS BID AND PRN IF SOILING -APPLY HEEL PROTECTORS TO BOTH HEELS AT ALL TIMES -OFFLOAD BILATERAL HEELS BY PLACING PILLOWS UNDER CALVES UNLESS OTHERWISE CONTRAINDICATED -PRESSURE REDISTRIBUTION SURFACE THERAPY -TURN AND REPOSITION Q2H, OFFLOAD SACRALCOCCYX AND BUTTOCKS BY TURNING RIGHT AND LEFT -CONTINUE TO FOLLOW RD RECOMMENDATIONS
[2020-10-21] MEDS: NYSTATIN POW 100 MU/GM 15 GM BTL TP SCH (13:00)
[2020-10-21 13:47] LABS: BASOPHILS # (AUTO) 0.2 K/uL (0.00-0.22); BASOPHILS % (AUTO) 2.1 % (0.0-2.0); EOSINOPHILS % (AUTO) 0.1 % (0.0-4.0); HEMATOCRIT 30.4 % (36-48); HEMOGLOBIN 9.7 g/dL (12.0-16.0); LYMPHOCYTES # (AUTO) 1.3 K/uL (2.5-16.5); LYMPHOCYTES % (AUTO) 14.1 % (20.5-51.1); MEAN CORPUSCULAR HEMOGLOBIN 29 pg (27-31); MEAN CORPUSCULAR HGB CONC 32 g/dL (33-37); MEAN CORPUSCULAR VOLUME 90.9 fL (80-94); MONOCYTES # (AUTO) 0.9 K/uL (0.8-1.0); MONOCYTES % (AUTO) 10.1 % (1.7-9.3); NEUTROPHILS # (AUTO) 6.5 K/uL (1.8-7.7); NEUTROPHILS % (AUTO) 73.6 % (42.2-75.2); PLATELET COUNT (AUTO) 387 K/uL (140-450); RED BLOOD CELL COUNT(AUTO) 3.35 MIL/uL (4.20-5.40); RED CELL DISTRIBUTION WIDTH 15.9 % (11.6-13.7); WHITE BLOOD COUNT (AUTO) 8.9 K/uL (4.8-10.8)
[2020-10-21] MEDS: NACL 0.9% 1,000 ML IV SCH (14:40)
[2020-10-21] MEDS ORDERED: VECURONIUM 10 MG VIAL IVP PRN (16:00)
--- NOTE | 2020-10-21 19:30 | NUR ---
ASSUMED CARE OF PT.INITIAL ASSESSMENT COMPLETED.SR ON MONITOR.ORALLY INTUBATED AC/PC FIO2 60 PC30 RATE 20 PEEP8.WITH HERMELINDA PICC,GOOD BLOOD RETURN TO BOTH PORTS INFUSING VERSED 6MG/HR AND PROPOFOL AT 50MCG/KG/HR DRY WT 158.8 KG.AND ORDERED IVF.W/OGT INTACT.WILL START OGT FEEDING ORDERED.W/BILATERAL SOFT WRIST RESTRAINTS ALREADY IN PLACE.W/GEORGE CATHETER TO BSD DRAINING SMALL AMT OF YELLOWISH/GREENISH URINE NOTED.FLACC 0OPEN WOUND TO SACROCOCCYGEAL NOTED
--- NOTE | 2020-10-21 20:00 | NUR ---
ORAL CARE USING VAP KIT RENDERED.PHOTO OF OPEN WOUND TO SACROCOCCYGEAL TAKEN.FLACC 0.REPOSITIONED.
[2020-10-21] MEDS: AZITHROMYCIN 500 MG in DEXTROSE 5% 250 ML IV SCH (21:09)
--- NOTE | 2020-10-21 23:08 | NUR ---
PHONE CALL FROM PTS DAUGHTER /INDIA, UPDATED ON PTS PRESENT CONDITION.QUESTIONS ANSWERED
[2020-10-22] VITALS (36 sets, daily range): BP systolic 95–131; BP diastolic 53–88
--- NOTE | 2020-10-22 | NUR ---
ORAL CARE DONE.REPOSITIONED.OGT FEEDING
[2020-10-22] MEDS: NYSTATIN POW 100 MU/GM 15 GM BTL TP SCH ×2 (01:00→13:00)
[2020-10-22] MEDS: ALBUTEROL SULFATE/IPRATROPIU 3 ML SOL IH SCH ×4 (02:00→20:19)
[2020-10-22] MEDS: PROPOFOL 1000 MG/100 ML PREMIX 100 ML IV PRN ×7 (02:31→21:59)
[2020-10-22] MEDS: MIDAZOLAM MDV 100 MG in NACL 0.9% 80 ML IV PRN ×2 (02:34→17:42)
--- NOTE | 2020-10-22 04:00 | NUR ---
150ML RESIDUAL, OGT FEEDING ON HOLD FOR NOW, WILL RECHECKED LATER ORAL CARE DONE.FLACC 0
--- NOTE | 2020-10-22 05:38 | NUR ---
MORNING CARE DONE.REPOSITIONED.GEORGE CATHETER LEAKING,IRRIGATED.
[2020-10-22] MEDS: BUDESONIDE 0.5 MG/2 ML NEBU INH SCH ×2 (06:28→20:19)
--- NOTE | 2020-10-22 06:34 | NUR ---
PT SATURATION DOWN TO 70'S;SUCTIONED; CALLED RT; RT PK AT BEDSIDE AT THIS TIME.
[2020-10-22] MEDS: BLOOD GLUCOSE MONITORING 1 DEV DEV FS SCH ×4 (06:43→21:50)
[2020-10-22] MEDS: INSULIN LISPRO SLIDING SCALE 100 UNITS/ML VIAL SUBQ PRN ×2 (06:43→23:16)
[2020-10-22 07:36] LABS: ALBUMIN 2.2 g/dL (3.4-5.0); CARBON DIOXIDE 29.5 mmol/L (21-32); CREATININE 0.7 mg/dL (0.6-1.3); POTASSIUM 4.5 mmol/L (3.5-5.1); TOTAL BILIRUBIN 0.4 mg/dL (0.0-1.0)
[2020-10-22] MEDS: NACL 0.9% 1,000 ML IV SCH (08:00)
[2020-10-22] MEDS: APIXABAN 2.5 MG TAB PO SCH ×2 (09:00→21:58)
[2020-10-22] MEDS: INSULIN LANTUS 100 UNITS/ML 10 ML VIAL SUBQ SCH (09:27)
[2020-10-22] MEDS: DOCUSATE 100 MG/10 ML UDC GT SCH (09:35)
[2020-10-22] MEDS: FUROSEMIDE 20 MG/2 ML VIAL IVP SCH (09:36)
[2020-10-22] MEDS: DEXAMETHASONE 4 MG TAB PO SCH (09:37)
[2020-10-22] MEDS: QUEtiapine FUMARATE 25 MG TAB PO SCH ×2 (09:39→21:55)
[2020-10-22 12:25] LABS: BASOPHILS % (AUTO) 0.3 % (0.0-2.0); EOSINOPHILS # (AUTO) 0.2 K/uL (0-0.4); EOSINOPHILS % (AUTO) 1.8 % (0.0-4.0); HEMATOCRIT 28.9 % (36-48); HEMOGLOBIN 9.3 g/dL (12.0-16.0); LYMPHOCYTES # (AUTO) 1.2 K/uL (2.5-16.5); LYMPHOCYTES % (AUTO) 10.8 % (20.5-51.1); MEAN CORPUSCULAR HEMOGLOBIN 29 pg (27-31); MEAN CORPUSCULAR HGB CONC 32 g/dL (33-37); MEAN CORPUSCULAR VOLUME 89.3 fL (80-94); MONOCYTES # (AUTO) 1.1 K/uL (0.8-1.0); MONOCYTES % (AUTO) 9.4 % (1.7-9.3); NEUTROPHILS # (AUTO) 8.8 K/uL (1.8-7.7); NEUTROPHILS % (AUTO) 77.7 % (42.2-75.2); PLATELET COUNT (AUTO) 413 K/uL (140-450); RED BLOOD CELL COUNT(AUTO) 3.24 MIL/uL (4.20-5.40); RED CELL DISTRIBUTION WIDTH 15.5 % (11.6-13.7); WHITE BLOOD COUNT (AUTO) 11.3 K/uL (4.8-10.8)
--- NOTE | 2020-10-22 17:05 | NUR ---
PT PLACED INTO PRONE POSITION, ETT SECURE WITH A PATENT AIRWAY. VENT ALARMS ON AND FUNCTIONING.
--- NOTE | 2020-10-22 20:05 | NUR ---
PT ETT TO VENT, AC PC FI02 70%, RATE 20, PEEP 8. CURRENTLY IN PRONED POSITION. HERMELINDA PICC IN PLACE, INFUSING PROPOFOL 40MCG/KG/MIN, VERSED 7 MG/HR, AND NS @ 60ML/HR. DRY WEIGHT 158.8 KG, RASS -3. PT WITHDRAWS TO PAIN. LEFT AC 20G SL. OGT IN PLACE, CLAMPED TO PATIENT, FEEDING HELD FOR POSITIONING. SKIN WARM AND DRY, NOT INTACT, SMALL SKIN TEAR TO SACRUM. DRESSING IN PLACE. REDNESS NOTED AT ABDOMINAL AND BREAST FOLDS. PT IS OBESE. GEORGE CATHETER IN PLACE, JAVIER URINE NOTED. REVERSE TRENDELENBURG, SIDE RAILS UP, DROPLET PRECAUTIONS IN PLACE, FLACC 0. WILL CONTINUE TO MONITOR.
[2020-10-22] MEDS: AZITHROMYCIN 500 MG in DEXTROSE 5% 250 ML IV SCH (21:58)
--- NOTE | 2020-10-22 22:40 | NUR ---
TITRATED PATIENTS FI02 IN INCREMENTS OF 5, PT DOWN TO 55% FI02, RT AWARE. PT SP02 100%. WILL CONTINUE TO MONITOR.
--- NOTE | 2020-10-22 23:20 | NUR ---
UPDATED PATIENTS DAUGHTER. ANSWERED ALL QUESTIONS AND CONCERNS. PER DAUGHTER, PT TAKES HIGH BLOOD PRESSURE MEDICATIONS AT HOME BENAZEPRIL 20MG BID, AWARE THAT PATIENTS BLOOD PRESSURE HAS BEEN STABLE. WILL ENDORSE TO DAYSHIFT NURSE/DOCTOR. NO DISTRESS NOTED AT THIS TIME.
[2020-10-23] VITALS (53 sets, daily range): BP systolic 113–157; BP diastolic 56–119
[2020-10-23] MEDS: ALBUTEROL SULFATE/IPRATROPIU 3 ML SOL IH SCH ×4 (00:25→20:43)
[2020-10-23] MEDS: PROPOFOL 1000 MG/100 ML PREMIX 100 ML IV PRN ×8 (00:25→23:00)
[2020-10-23] MEDS: NYSTATIN POW 100 MU/GM 15 GM BTL TP SCH (01:00)
--- NOTE | 2020-10-23 01:04 | NUR ---
PROVIDED ORAL CARE. PT WITHDRAWS TO CLEANING AND SUCTIONING. THICK CREAMY SECRETIONS NOTED. TEMPERATURE BORDERLINE, 100.1. CONTINUED TO KEEP BLANKETS OFF. PT FI02 45%, RT AWARE, TOLERATING WELL, RESPIRATIONS EVEN AND UNLABORED, SP02 100%. FLACC 0. SAFETY MEASURES IN PLACE.
--- NOTE | 2020-10-23 03:15 | NUR ---
RT AT BEDSIDE, TITRATED FI02 TO 35%. PT TOLERATING WELL, SP02 98%. NO SIGNS OF DISTRESS NOTED, ALL OTHER VITALS WITHIN RANGE. WILL CONTINUE TO MONITOR.
--- NOTE | 2020-10-23 04:45 | NUR ---
SPONGE BATH, GEORGE CARE, AND VAP ORAL CARE PROVIDED. SKIN TEAR AT SACRUM OPEN WITH SOME DRAINAGE, CHANGED DRESSING. PT ATTEMPTING TO MOVE LEGS AND ARMS, WITHDRAWS TO PAIN, RASS -3.
[2020-10-23] MEDS: BLOOD GLUCOSE MONITORING 1 DEV DEV FS SCH ×3 (06:16→21:00)
[2020-10-23] MEDS: INSULIN LISPRO SLIDING SCALE 100 UNITS/ML VIAL SUBQ PRN ×2 (06:16→21:24)
--- NOTE | 2020-10-23 06:40 | NUR ---
PT GEORGE EMPTIED 750 ML, PROVIDED SUCTIONING AND REPOSITIONED ARMS, PT FLACC 0. VENT SETTINGS AC PC FI02 35%, RATE 20, PEEP 8. NO DISTRESS NOTED. HERMELINDA PICC IN PLACE. ALL DRIPS SAME START OF SHIFT. BLOOD SUGAR 278, COVERED PER SLIDING SCALE. REVERSE TRENDELENBURG, BED LOCKED. WILL ENDORSE TO DAYSHIFT NURSE.
[2020-10-23 06:46] LABS: ANION GAP 13.4 (8-16); CARBON DIOXIDE 27.2 mmol/L (21-32); CREATININE 0.7 mg/dL (0.6-1.3); POTASSIUM 4.6 mmol/L (3.5-5.1)
[2020-10-23 06:51] LABS: MAGNESIUM 2.1 mg/dL (1.8-2.4); PHOSPHORUS 2.3 mg/dL (2.5-4.9)
[2020-10-23 06:54] LABS: BASOPHILS # (AUTO) 0.1 K/uL (0.00-0.22); BASOPHILS % (AUTO) 0.6 % (0.0-2.0); EOSINOPHILS # (AUTO) 0.1 K/uL (0-0.4); EOSINOPHILS % (AUTO) 0.6 % (0.0-4.0); HEMATOCRIT 29.4 % (36-48); HEMOGLOBIN 9.5 g/dL (12.0-16.0); LYMPHOCYTES # (AUTO) 1.6 K/uL (2.5-16.5); LYMPHOCYTES % (AUTO) 14.9 % (20.5-51.1); MEAN CORPUSCULAR HEMOGLOBIN 29 pg (27-31); MEAN CORPUSCULAR HGB CONC 32 g/dL (33-37); MEAN CORPUSCULAR VOLUME 89.5 fL (80-94); MONOCYTES # (AUTO) 1.1 K/uL (0.8-1.0); MONOCYTES % (AUTO) 10.1 % (1.7-9.3); NEUTROPHILS # (AUTO) 8.1 K/uL (1.8-7.7); NEUTROPHILS % (AUTO) 73.8 % (42.2-75.2); PLATELET COUNT (AUTO) 437 K/uL (140-450); RED BLOOD CELL COUNT(AUTO) 3.29 MIL/uL (4.20-5.40); RED CELL DISTRIBUTION WIDTH 15.6 % (11.6-13.7); WHITE BLOOD COUNT (AUTO) 10.9 K/uL (4.8-10.8)
[2020-10-23] MEDS: BUDESONIDE 0.5 MG/2 ML NEBU INH SCH ×2 (07:16→20:43)
[2020-10-23] MEDS: FUROSEMIDE 20 MG/2 ML VIAL IVP SCH (09:00)
[2020-10-23] MEDS: DOCUSATE 100 MG/10 ML UDC GT SCH (09:00)
[2020-10-23] MEDS: DEXAMETHASONE 4 MG/ML VIAL IVP SCH (09:00)
[2020-10-23] MEDS: APIXABAN 2.5 MG TAB PO SCH ×2 (09:00→20:54)
[2020-10-23] MEDS: INSULIN LANTUS 100 UNITS/ML 10 ML VIAL SUBQ SCH (09:44)
[2020-10-23] MEDS: QUEtiapine FUMARATE 25 MG TAB PO SCH ×2 (10:00→20:53)
[2020-10-23] MEDS: MIDAZOLAM MDV 100 MG in NACL 0.9% 80 ML IV PRN ×2 (10:05→17:25)
--- NOTE | 2020-10-23 12:05 | NUR ---
CHANGED VENT SETTINGS. CHANGES: PEEP FROM 8cmH2O TO 6cmH2O AND Pinsp FROM 30 TO [id number]. WILL CONTINUE TO MONITOR.
--- NOTE | 2020-10-23 14:56 | NUR ---
10/23/20 RD FOLLOW UP COMPLETED PLEASE REFER TO NUTRITION PROGRESS NOTES UNDER CARE ACTIVITY FOR ESTIMATED NUTRITIONAL NEEDS. RD RECOMMENDATIONS: 1. RECOMMEND CHANGE TF ORDER TO GLUCERNA 1.5@40MLS/HR - PROVIDES 1440KCALS & 79GM PROTEIN; SUFFICIENT TO MEET 72% OF PT ESTIMATED ENERGY NEEDS & 82% ESTIMATED PROTEIN NEEDS. 2. IF TF / VOLUME TOLERATED WELL, RECOMMEND INCREASE TF TO GLUCERNA 1.5@50MLS/HR (MEETS VOLUME GOAL OF 150MLS/HR X 8HRS DISCUSSED WITH RN AND MEETS CLOSE TO 100% ESTIMATED ENERGY & PROTEIN NEEDS). 3. RECOMMEND WATER FLUSH 100MLS Q 8HRS. 4. F/U 2-3 DAYS; HIGH RISK KULWINDER LABOY MBA, RD
--- NOTE | 2020-10-23 16:15 | NUR ---
PT PLACED INTO SUPINE POSITION. ETT IS SECURE WITH A PATENT AIRWAY. VENT ALARMS ON AND FUNCTIONING. FIO2 INCREASED TO 35% DUE TO LOW SPO2. PT NOT IN ANY DISTRESS AT THIS TIME.
--- NOTE | 2020-10-23 20:03 | NUR ---
PT ETT TO VENT, AC PC FI02 35% RATE 20 PEEP 6. OGT TO TUBE FEEDING. HERMELINDA PICC IN PLACE, PROPOFOL 40 MCG/KG/MIN AND VERSED 7MG/HR. RASS -3, DRY WEIGHT 158.8KG. PT WITHDRAWS TO PAIN. OLAC 20G, SL. PERRL, 3MM. SKIN WARM AND DRY,AFEBRILE, NOT INTACT, REDNESS AT SKIN FOLDS OF BREAST AND ABDOMEN, AND SKIN TEAR TO SACRUM. HOB 30 DEGREES, SIDE RAILS UP. DROPLET PRECAUTIONS IN PLACE, WILL CONTINUE TO MONITOR.
[2020-10-23] MEDS: AZITHROMYCIN 500 MG in DEXTROSE 5% 250 ML IV SCH (20:53)
--- NOTE | 2020-10-23 21:13 | NUR ---
OGT CONFIRMED VIA AUSCULTATION. RESIDUALS LESS THAN 40ML. SCHEDULED MEDS GIVEN. PROVIDED 120 ML OF TUBE FEEDING. TURNED AND POSITIONED PATIENT, ON VIDEO CALL WITH DAUGHTERS, ALL QUESTIONS ANSWERED. SAFETY MEASURES IN PLACE, FLACC 0.
--- NOTE | 2020-10-23 22:03 | NUR ---
INCREASED FI02 TO 45%, PTS BREATHING IS TACHYPNEIC AND LABORED,SP02 IN 70's, HR ELEVATED. TURNED AND POSITIONED TO OFFLOAD LUNGS, PT TOLERATED WELL. SP02 NOW 90's. RT MADE AWARE, WILL CONTINUE TO MONITOR.
[2020-10-24] VITALS (20 sets, daily range): BP systolic 104–148; BP diastolic 52–83
[2020-10-24] MEDS: PROPOFOL 1000 MG/100 ML PREMIX 100 ML IV PRN ×7 (00:47→23:21)
[2020-10-24] MEDS: ALBUTEROL SULFATE/IPRATROPIU 3 ML SOL IH SCH ×4 (00:59→19:00)
[2020-10-24] MEDS: NYSTATIN POW 100 MU/GM 15 GM BTL TP SCH ×2 (01:00→13:00)
--- NOTE | 2020-10-24 02:30 | NUR ---
WORK OF BREATHING VERY LABORED. RT CALLED. PER RT, INCREASED PEEP TO 10, AWARE THAT MD HAD DECREASED TO PEEP 6 IN DAYSHIFT. CONFIRMED WITH RT THAT PATIENTS BREATHING HAS IMPROVED, RESPIRATIONS NOW IN 20's, SP02 95%, FI02 BACK TO 35%. PT APPEARS MORE CALM. WILL CONTINUE TO MONITOR.
[2020-10-24] MEDS: MIDAZOLAM MDV 100 MG in NACL 0.9% 80 ML IV PRN ×2 (06:28→20:20)
[2020-10-24 06:29] LABS: BASOPHILS # (AUTO) 0.2 K/uL (0.00-0.22); BASOPHILS % (AUTO) 1.2 % (0.0-2.0); EOSINOPHILS # (AUTO) 0.1 K/uL (0-0.4); EOSINOPHILS % (AUTO) 0.8 % (0.0-4.0); HEMATOCRIT 23.8 % (36-48); HEMOGLOBIN 7.6 g/dL (12.0-16.0); LYMPHOCYTES # (AUTO) 2.2 K/uL (2.5-16.5); LYMPHOCYTES % (AUTO) 16.1 % (20.5-51.1); MEAN CORPUSCULAR HEMOGLOBIN 29 pg (27-31); MEAN CORPUSCULAR HGB CONC 32 g/dL (33-37); MEAN CORPUSCULAR VOLUME 89.9 fL (80-94); MONOCYTES # (AUTO) 1.4 K/uL (0.8-1.0); MONOCYTES % (AUTO) 10.3 % (1.7-9.3); NEUTROPHILS % (AUTO) 71.6 % (42.2-75.2); PLATELET COUNT (AUTO) 493 K/uL (140-450); RED BLOOD CELL COUNT(AUTO) 2.65 MIL/uL (4.20-5.40); RED CELL DISTRIBUTION WIDTH 15.7 % (11.6-13.7); WHITE BLOOD COUNT (AUTO) 13.9 K/uL (4.8-10.8)
[2020-10-24 07:12] LABS: ANION GAP 13.1 (8-16); CARBON DIOXIDE 27.3 mmol/L (21-32); CREATININE 0.7 mg/dL (0.6-1.3); POTASSIUM 4.4 mmol/L (3.5-5.1)
[2020-10-24 07:19] LABS: MAGNESIUM 1.5 mg/dL (1.8-2.4); PHOSPHORUS 2.9 mg/dL (2.5-4.9)
[2020-10-24] MEDS: BLOOD GLUCOSE MONITORING 1 DEV DEV FS SCH ×4 (07:30→21:00)
[2020-10-24] MEDS: BUDESONIDE 0.5 MG/2 ML NEBU INH SCH ×2 (08:01→19:30)
[2020-10-24] MEDS: INSULIN LANTUS 100 UNITS/ML 10 ML VIAL SUBQ SCH (09:00)
[2020-10-24] MEDS: APIXABAN 2.5 MG TAB PO SCH ×2 (09:01→21:03)
[2020-10-24] MEDS: FUROSEMIDE 20 MG/2 ML VIAL IVP SCH (09:02)
[2020-10-24] MEDS: METOCLOPRAMIDE 10 MG/2 ML INJ VIAL IVP PRN (09:02)
[2020-10-24] MEDS: DEXAMETHASONE 4 MG/ML VIAL IVP SCH (09:03)
[2020-10-24] MEDS: DOCUSATE 100 MG/10 ML UDC GT SCH (09:03)
[2020-10-24] MEDS: QUEtiapine FUMARATE 25 MG TAB PO PRN (09:06)
[2020-10-24] MEDS: QUEtiapine FUMARATE 25 MG TAB PO SCH ×2 (09:07→21:00)
[2020-10-24] MEDS ORDERED: MAG SULF 2000 MG/WATER PREMIX 50 ML IV SCH (15:40)
--- NOTE | 2020-10-24 15:44 | NUR ---
RT CALLED TO BEDSIDE WITH BP OF 77/46 NOTED ON PORTABLE MONITOR , PATIENT REASSESED WITH STERNUM RUB AND SEDATION VACATION EYES OPEN ALL EXTREMETIES WITH EQUAL MOVEMENT
[2020-10-24] MEDS ORDERED: INSULIN LISPRO 100 UNITS/ML VIAL SUBQ SCH (18:27)
--- NOTE | 2020-10-24 19:15 | NUR ---
RECEIVED PATIENT ON BED WITH HOB ELEVATED TO 30 DEGREE; ORALLY INTUBATED AND VENTILATED AT 80% FIO2; SEDATED RASS-3 WITH CONTINOUS PROPOFOL AND VERSED DRIP. CARDIACSCOPE SHOWS ON SINUS RHYTHM HR 71/MIN NO ARRHYTHMIAS SEEN. ABDOMEN IS SOFT BUT VERY OBESE; HYPOACTIVE BOWEL SOUNDS. TUBE FEEDING VITAL AF RESTARTED AT 40 ML/HR VIA OGT THERE'S NO RESIDUAL SEEN. GEORGE CATH IN SITU TO GRAVITY DRAINAGE BAG DRAINING TO CLOUDY URINE OUTPUT WITH LOTS OF SEDIMENTS; INTACT.
[2020-10-24] MEDS: AZITHROMYCIN 500 MG in DEXTROSE 5% 250 ML IV SCH (20:59)
--- NOTE | 2020-10-24 21:30 | NUR ---
ACCUCHECK DONE, 337 RESULT, NO INSULIN GIVEN SHE JUST RECEIVED 16 UNITS OF INSULIN LISPRO [id number] HRS GIVEN BY THE PREVIOUS SHIFT HERBER PRAKASH.
[2020-10-25] VITALS (16 sets, daily range): BP systolic 111–146; BP diastolic 60–78
[2020-10-25] MEDS: PIPERACILLIN/TAZOBACTAM 3.375 GM in DEXTROSE 5% 50 ML IV SCH ×4 (01:00→18:00)
[2020-10-25] MEDS: ALBUTEROL SULFATE/IPRATROPIU 3 ML SOL IH SCH ×4 (01:00→19:45)
[2020-10-25] MEDS ORDERED: PIPERACILLIN/TAZOBACTAM 3.375 GM VIAL IV ONE ×2 (01:16→05:38)
[2020-10-25] MEDS: PROPOFOL 1000 MG/100 ML PREMIX 100 ML IV PRN ×3 (01:55→21:51)
[2020-10-25] MEDS: NYSTATIN POW 100 MU/GM 15 GM BTL TP SCH ×2 (04:00→13:00)
--- NOTE | 2020-10-25 04:00 | NUR ---
MORNING BED BATH DONE; WOUND CARE DONE.
[2020-10-25 06:24] LABS: BASOPHILS # (AUTO) 0.1 K/uL (0.00-0.22); EOSINOPHILS # (AUTO) 0.1 K/uL (0-0.4); HEMATOCRIT 30.9 % (36-48); HEMOGLOBIN 9.9 g/dL (12.0-16.0); LYMPHOCYTES # (AUTO) 2.3 K/uL (2.5-16.5); MEAN CORPUSCULAR HEMOGLOBIN 29 pg (27-31); MEAN CORPUSCULAR HGB CONC 32 g/dL (33-37); MEAN CORPUSCULAR VOLUME 91.2 fL (80-94); MONOCYTES # (AUTO) 1.4 K/uL (0.8-1.0); NEUTROPHILS # (AUTO) 9.6 K/uL (1.8-7.7); PLATELET COUNT (AUTO) 491 K/uL (140-450); RED BLOOD CELL COUNT(AUTO) 3.39 MIL/uL (4.20-5.40); RED CELL DISTRIBUTION WIDTH 15.7 % (11.6-13.7); WHITE BLOOD COUNT (AUTO) 13.6 K/uL (4.8-10.8)
[2020-10-25] MEDS: BLOOD GLUCOSE MONITORING 1 DEV DEV FS SCH ×4 (07:30→21:34)
[2020-10-25] MEDS: BUDESONIDE 0.5 MG/2 ML NEBU INH SCH ×2 (07:30→19:45)
[2020-10-25 08:57] LABS: ANION GAP 13.8 (8-16); CARBON DIOXIDE 28.8 mmol/L (21-32); CREATININE 0.7 mg/dL (0.6-1.3); POTASSIUM 4.6 mmol/L (3.5-5.1)
[2020-10-25] MEDS: QUEtiapine FUMARATE 25 MG TAB PO SCH ×2 (09:00→22:23)
[2020-10-25] MEDS: APIXABAN 2.5 MG TAB PO SCH ×2 (09:00→22:25)
[2020-10-25] MEDS: DOCUSATE 100 MG/10 ML UDC GT SCH (09:00)
[2020-10-25] MEDS: FUROSEMIDE 20 MG/2 ML VIAL IVP SCH (09:00)
[2020-10-25] MEDS: INSULIN LANTUS 100 UNITS/ML 10 ML VIAL SUBQ SCH (09:00)
[2020-10-25] MEDS: DEXAMETHASONE 4 MG/ML VIAL IVP SCH (09:00)
[2020-10-25 11:16] LABS: MAGNESIUM 1.9 mg/dL (1.8-2.4); PHOSPHORUS 4.8 mg/dL (2.5-4.9)
[2020-10-25] MEDS ORDERED: MAG SULF 2000 MG/WATER PREMIX 50 ML IV SCH (13:00)
--- NOTE | 2020-10-25 19:46 | NUR ---
RECEIVED PATIENT FROM AM SHIFT. PATIENT WAS SEEN AND ASSESSED. FOUND PT IN SUPINE POSITION. PATIENT IS INTUBATED WITH ETT SIZE 7.5 AND SECURED WITH ANCHOR-FAST AT 23cm. PATIENT IS ON VENT SETTINGS: AC/PC 28, RR 20, PEEP 6, FiO2 50% WITH SPO2 OF 95%. AMBU BAG AT BEDSIDE. VENT IS PLUGGED IN RED OUTLET. ALARMS SET AND AUDIBLE TO ENVIRONMENT. SUCTIONED SMALL AMOUNT OF WHITE THICK SECRETIONS FROM ETT. AIRWAY IS PATENT. AUSCULTATION REVEALS BILATERAL DIMINISHED BREATH SOUNDS. PATIENT IS IN NO APPARENT RESPIRATORY DISTRESS AT THIS TIME. HHN TX GIVEN AND PT TOLERATING WELL. WILL CONTINUE TO MONITOR PATIENT.
--- NOTE | 2020-10-25 20:00 | NUR ---
RECEIVED REPORT FROM CHITRA CRAVEN, PT IS ETT TO VENT A/C PC FIO2 50%, PEEP 6, RATE 20 SATURATION AT 95%. LUNG SOUNDS DIMINISHED. S1S2 NOTED, PT HAS HERMELINDA PICC LINE RUNNING PROPOFOL 40MCG/KG/MIN, VERSED 7 MG/HR ASYMPTOMATIC AND PATENT. PT HAS LT AC 20g SALINE LOCK, PATENT/ASYMPTOMATIC. BS ACTIVE IN ALL 4 QUARDRANTS, RESIDUAL 100ML. FEEDING RUNNING AT 40ML/HR, WILL CONT TO INCREASE TO GOAL RATE. GEORGE IN PLACE, DRAINING TO GRAVITY. SKIN WARM AND DRY, SACRAL WOUND, SKIN OTHERWISE INTACT. SAFETY MEASURES IN PLACE, WILL CONT TO MONITOR.
[2020-10-25] MEDS: INSULIN LISPRO SLIDING SCALE 100 UNITS/ML VIAL SUBQ PRN (21:34)
--- NOTE | 2020-10-25 22:00 | NUR ---
NO S/S OF DISTRESS NOTED, TURNED AND REPOSITIONED PT. SAFETY MEASURES IN PLACE, WILL CONT TO ASSESS.
[2020-10-26] VITALS (22 sets, daily range): BP systolic 103–148; BP diastolic 58–86
--- NOTE | 2020-10-26 | NUR ---
VAP ORAL CARE GIVEN, TURNED AND REPOSITIONED PT, PT TOLERATED IT WELL. WILL CONT TO MONITOR.
[2020-10-26] MEDS: PROPOFOL 1000 MG/100 ML PREMIX 100 ML IV PRN ×8 (00:47→22:54)
[2020-10-26] MEDS: PIPERACILLIN/TAZOBACTAM 3.375 GM in DEXTROSE 5% 50 ML IV SCH ×4 (00:48→18:08)
[2020-10-26] MEDS: ALBUTEROL SULFATE/IPRATROPIU 3 ML SOL IH SCH ×4 (01:23→20:06)
--- NOTE | 2020-10-26 02:00 | NUR ---
PTs CONDITION REMAINS UNCHANGED, WILL CONT TO MONITOR.
[2020-10-26] MEDS: MIDAZOLAM MDV 100 MG in NACL 0.9% 80 ML IV PRN ×2 (02:50→20:51)
--- NOTE | 2020-10-26 04:00 | NUR ---
ROUTINE CARE GIVEN, GEORGE CARE, VAP ORAL CARE, CLEAN GOWN, TURNED AND REPOSITIONED. SAFETY MEASURES IN PLACE, WILL CONT TO MONITOR.
--- NOTE | 2020-10-26 06:00 | NUR ---
NO S/S OF DISTRESS NOTED. TURNED AND REPOSITIONED PT, SAFETY MEASURES IN PLACE, BED LOW AND LOCKED, SIDE RAILS PADDED AND UP, CALL LIGHT WITHIN REACH, WILL CONT TO MONITOR CLOSELY.
[2020-10-26 06:13] LABS: HEMATOCRIT 30.2 % (36-48); HEMOGLOBIN 9.6 g/dL (12.0-16.0); MEAN CORPUSCULAR HEMOGLOBIN 29 pg (27-31); MEAN CORPUSCULAR HGB CONC 32 g/dL (33-37); MEAN CORPUSCULAR VOLUME 91.3 fL (80-94); PLATELET COUNT (AUTO) 441 K/uL (140-450); RED BLOOD CELL COUNT(AUTO) 3.31 MIL/uL (4.20-5.40); RED CELL DISTRIBUTION WIDTH 15.4 % (11.6-13.7); WHITE BLOOD COUNT (AUTO) 12.3 K/uL (4.8-10.8)
[2020-10-26 06:36] LABS: ANION GAP 11.7 (8-16); CARBON DIOXIDE 32.1 mmol/L (21-32); CREATININE 0.7 mg/dL (0.6-1.3); POTASSIUM 4.8 mmol/L (3.5-5.1)
[2020-10-26 06:51] LABS: MAGNESIUM 2.1 mg/dL (1.8-2.4)
[2020-10-26] MEDS: BLOOD GLUCOSE MONITORING 1 DEV DEV FS SCH ×3 (07:30→16:30)
[2020-10-26] MEDS: BUDESONIDE 0.5 MG/2 ML NEBU INH SCH ×2 (07:30→20:07)
[2020-10-26 08:24] LABS: METAMYELOCYTES % 1 % (0-0)
[2020-10-26 08:25] LABS: EOSINOPHILS % (MANUAL) 3 % (0-4); MONOCYTES % (MANUAL) 10 % (5-12); MYELOCYTES % 1 % (0-0)
[2020-10-26 08:26] LABS: LYMPHOCYTES % (MANUAL) 15 % (20-46)
[2020-10-26] MEDS: DOCUSATE 100 MG/10 ML UDC GT SCH (09:00)
[2020-10-26] MEDS: INSULIN LANTUS 100 UNITS/ML 10 ML VIAL SUBQ SCH (09:55)
[2020-10-26] MEDS: QUEtiapine FUMARATE 25 MG TAB PO PRN (09:56)
[2020-10-26] MEDS: QUEtiapine FUMARATE 25 MG TAB PO SCH ×2 (09:58→21:26)
[2020-10-26] MEDS: FUROSEMIDE 20 MG/2 ML VIAL IVP SCH (10:00)
[2020-10-26] MEDS: APIXABAN 2.5 MG TAB PO SCH ×2 (10:00→21:27)
[2020-10-26] MEDS: DEXAMETHASONE 4 MG/ML VIAL IVP SCH (10:01)
[2020-10-26] MEDS ORDERED: remdesivir COMMUNICATION ORDER 1 EA MISC MC PRN (12:30)
--- NOTE | 2020-10-26 14:15 | NUR ---
WOUND CARE RE-EVALUATION NOTE: PT. COVID POSITIVE, CHANGE OF CONDITION TRANSFER FROM [facility] TO ICU. SEDATED. SACRALCOCCYX PRESSURE INJURY STAGE 2 1.5XO.5CM SUPERFICIAL DEPTH, MOIST, NO ODOR, ROCÍO WOUND SKIN REDNESS, INDICATED FURTHER DAMAGE. FOAM DRESSING APPLIED, CONTINUE OFFLOADING.
[2020-10-26] MEDS ORDERED: remdesivir CLINICAL MONITORING 1 EA MISC MC PRN (14:35)
--- NOTE | 2020-10-26 14:45 | NUR ---
10/26/20 RD FOLLOW UP COMPLETED PLEASE REFER TO NUTRITION ASSESSMENT UNDER CARE ACTIVITY FOR ESTIMATED NUTRITIONAL NEEDS. 1. RECOMMEND GLUCERNA 1.5 @ 120 ML/HR X 8 HOURS. START FEEDING AT 40 ML/HR AND INCREASE TOLERATED -THIS WILL PROVIDE 960 ML OF VOLUME, 728 ML OF WATER, 1440 KCAL, 79 GM OF PROTEIN. MEETING >75% OF KCAL AND PROTEIN NEEDS. 2. CONTINUE FREE WATER FLUSH OF 100 ML Q3H 3. RECOMMEND VITAMIN C 1000 MG AND VITAMIN D [address] TO FOLLOW-UP 2-3 DAYS, HIGH RISK DWAIN ADAMS RD
--- NOTE | 2020-10-26 15:33 | NUR ---
DISCHARGE PLANNING: COVID POSITIVE 10/17/2020. ORALLY INTUBATED FIO2 50%, PEEP 6, O2 SAT 93%. SEDATED WITH VERSED, PROPOFOL. ON REMDESIVIR, ZOSYN, DECADRON, ELIQUIS.. SEEN BY PULMO - CONT VENT SUPPORT, TITRATE PEEP TOLERATED. Addendum: 10/31/20 at 1148 by Clarita Elaine CM REMAINS ORALLY INTUBATED TO VENT, FIO2 45%, PEEP 5, O2 SAT 96%. SEDATED WITH VERSED AND PROPOFOL. PER LETY - TO HOLD OFF ON EXTUBATION DUE TO LETHARGY AND INCREASED RESPIRATORY SECRETIONS, SAT AND SBT'S DAILY FIO2 IMPROVES TO 40% AND BELOW. Addendum: 11/01/20 at 1101 by Clarita Elaine CM PER DR. MG, WILL DO BREATHING TRIALS AGAIN AND ONCE TOLERATED, WILL EXTUBATE TODAY. Addendum: 11/03/20 at 1406 by Clarita Elaine CM SEEN BY LETY Hernandez TO RESUME SBT'S. Addendum: 11/07/20 at 1605 by Clarita Elaine CM CONTACTED [facility], ABLE TO SPEAK TO DC. HE STATED HE SENT OUT A MESSAGE TO PENNY MACIAS TO CALL ME BACK. Addendum: 11/08/20 at 1051 by Poppy Dunn CM MARIELA SALCIDO: RECEIVED ORDER FOR SNF FOR PT. FAXED TO [facility]. WILL FOLLOW UP Addendum: 11/08/20 at 1335 by Poppy Dunn CM MARIELA SALCIDO: SPOKE TO PENNY DIETRICH [phone] SHE IS COVERING FOR [place] TODAY. SHE IS AWARE THAT PATIENT NEEDS SNF. SHE WILL FAX TO ALL CONTRACTED FACILITIES. Addendum: 11/08/20 at 1426 by Poppy Dunn CM MARIELA SALCIDO: RECEIVED A CALL FROM SKYLER AT [facility], AND A CALL FROM RAÚL AT [facility] THEY ARE REVIEWING PATIENTS PACKET. Addendum: 11/08/20 at 1615 by Poppy Dunn CM MARIELA SALCIDO: RAÚL ZAMUDIO [facility] IS ABLE TO ACCEPT PATIENT HOWEVER SHE IS REQUESTING A PCR TEST. Addendum: 11/08/20 at 1638 by Poppy Dunn CM MARIELA SALCIDO: SKYLER AT [facility] IS REQUESTING A RAPID COVID TEST. Addendum: 11/09/20 at 1005 by Poppy Dunn CM DC MACHINE CLOTHING WORKER: TRIED CONTACTING PATIENT TO DISCUSS DC TO SNF. PATIENT DOES NOT ANSWER ROOM PHONE. SPOKE TO PATIENTS JANET OSBORNE [phone] SHE STATED THAT SHE DOES NOT BELIEVE HER MOTHER WOULD BE AGREEABLE TO SNF BECAUSE LAST TIME SHE SPOKE TO HER SHE SAID SHE WANTED TO GO HOME. SPOKE TO PATIENTS RN SHE WILL CONNECT PATIENTS ROOM PHONE. Addendum: 11/09/20 at 1114 by Poppy Dunn CM DC MACHINE CLOTHING WORKER: RECEIVED A PHONE CALL FROM PATIENTS JANET WILDER [phone] SHE AGREES WITH HER MOTHER GOING TO SNF SHE UNDERSTANDS THAT IT WOULD BE AN UNSAFE DC FOR HER MOTHER TO GO HOME. SPOKE TO PENNY KEYES AT [facility] SHE PROVIDED THE NUMBER FOR [facility] [phone] SHE WAS TOLD THAT THEY ARE ABLE TO ACCEPT PATIENT. SPOKE TO ADMISSIONS AT [facility] THEY STATED THAT THEY SPOKE TO PENNY DIETRICH AT [facility] AND DECLINED THIS PATIENT. FOLLOWED UP WITH SKYLER AT [facility] SHE NEEDS TO CLARIFY WITH [facility] OF THEY CAN ACCEPT THIS PATIENT BECAUSE SHE WAS TOLD BY MUCKING MACHINE OPERATOR AT [facility] THAT THEY ARE REQUESTING THIS PATIENT TO GO TO A SNF THAT ACCEPTS COVID POSITIVE PATIENTS. RAPID TEST STILL PENDING. Addendum: 11/09/20 at 1217 by Poppy Dunn CM MARIELA SALCIDO: FOLLOWED UP WITH PENNY KEYES SHE SPOKE TO SKYLER AT [facility] SHE IS WAITING ON A RESPONSE FROM HER. Addendum: 11/09/20 at 1528 by Poppy Dunn CM MARIELA SALCIDO: PATIENT HAS BEEN ACCEPTED AT [facility]. [place] [address] [address] [facility] [address] [address] DR[address] FREDERICK Addendum: 11/09/20 at 1531 by Poppy Dunn CM MARIELA SALCIDO: [facility] SET UP TRANSPORTATION WITH [facility] FOR 8:00 PM. NOTIFIED PATIENTS DAUGHTER INDIA OF ACCEPTING FACILITY AND TRANSPORTATION TIME. Addendum: 11/09/20 at 1549 by Poppy Dunn CM MARIELA SALCIDO: NOTIFIED HERBER PARIKH
[2020-10-26] MEDS ORDERED: REMDESIVIR (EUA) 200 MG in NACL 0.9% 100 ML IV SCH (17:00)
--- NOTE | 2020-10-26 20:00 | NUR ---
RECEIVED REPORT FROM CHITRA CRAVEN, PT IS ETT TO VENT A/C PC FIO2 50%, PEEP 6, RATE 20 SATURATION AT 95%. LUNG SOUNDS DIMINISHED. S1S2 NOTED, PT HAS HERMELINDA PICC LINE RUNNING PROPOFOL 40MCG/KG/MIN, VERSED 7 MG/HR ASYMPTOMATIC AND PATENT. PT HAS LT AC 20g SALINE LOCK, PATENT/ASYMPTOMATIC. BS ACTIVE IN ALL 4 QUADRANTS, RESIDUAL 30ML. FEEDING RUNNING AT 60ML/HR, WILL CONT TO INCREASE TO GOAL RATE. GEORGE IN PLACE, DRAINING TO GRAVITY. SKIN WARM AND DRY, SACRAL WOUND, SKIN OTHERWISE INTACT. SAFETY MEASURES IN PLACE, WILL CONT TO MONITOR.
--- NOTE | 2020-10-26 20:50 | NUR ---
PTs BLOOD GLUCOSE 428. PAGED DR VELAZQUEZ. DR LAGUERRE CALLED BACK AND PER DR LAGUERRE ORDER: ACU CHECK Q 6HR, ORDER NPH 10 UNITS BID AND CHANGE TO HIGH DOSE SLIDING SCALE.
[2020-10-26] MEDS: INSULIN LISPRO SLIDING SCALE 100 UNITS/ML VIAL SUBQ PRN (21:24)
--- NOTE | 2020-10-26 22:00 | NUR ---
TURNED AND REPOSITIONED PT. PT TOLERATED IT WELL, WILL CONT TO ASSESS
--- NOTE | 2020-10-26 23:30 | NUR ---
CHANGED NORMAL ANCHOR-FAST TO A BIDDING BLOCK ANCHOR-FAST AND SECURED WITH ETT. EQUAL BILATERAL BREATH SOUNDS ON AUSCULTATION. PT GETTING ADEQUATE VOLUMES. SPO2 94%. PT IN NO RESPIRATORY DISTRESS AT THIS TIME. RN AT BEDSIDE. X RAY ORDERED. WILL CONTINUE TO MONITOR PT.
[2020-10-27] VITALS (21 sets, daily range): BP systolic 110–159; BP diastolic 66–78
--- NOTE | 2020-10-27 | NUR ---
PT HAD BM, PERFORMED ROUTINE CARE, VAP ORAL CARE, CHG BATH, GEORGE AND ROCÍO CARE. CLEANSED AND APPLIED Z GUARD TO INNER THIGHS, NYSTATIN POWDER TO PTs FOLDS, AND CLEANSED AND APPLIED NEW OPTIFOAM DRESSING ON PTs SACRAL AREA/CRACK OF BUTTOCK CHEEKS. CLEAN LINEN AND BLANKETS. PT TOLERATED IT WELL, SAFETY MEASURES IN PLACE, WILL CONT TO MONITOR.
--- NOTE | 2020-10-27 00:25 | NUR ---
PTs DAUGHTER CALLED, UPDATED ABOUT HER ON THE PTs CONDITION.
[2020-10-27] MEDS: INSULIN LISPRO SLIDING SCALE 100 UNITS/ML VIAL SUBQ PRN ×2 (00:49→06:22)
[2020-10-27] MEDS: PIPERACILLIN/TAZOBACTAM 3.375 GM in DEXTROSE 5% 50 ML IV SCH ×4 (00:52→18:00)
[2020-10-27] MEDS: PROPOFOL 1000 MG/100 ML PREMIX 100 ML IV PRN ×3 (01:35→21:44)
--- NOTE | 2020-10-27 02:03 | NUR ---
NO S/S OF DISTRESS NOTED, WILL CONT TO MONITOR CLOSELY. SAFETY MEASURES IN PLACE
--- NOTE | 2020-10-27 04:00 | NUR ---
TURNED AND REPOSITIONED PT. PT TOLERATED IT WELL. OG-TUBE RESIDUALS: 25ML. PT TOLERATING FEEDING WELL
[2020-10-27] MEDS: BLOOD GLUCOSE MONITORING 1 DEV DEV FS SCH ×4 (06:00→18:00)
--- NOTE | 2020-10-27 06:00 | NUR ---
PTs CONDITION REMAINS UNCHANGED, SAFETY MEASURES IN PLACE, BED LOW AND LOCKED WITH SIDE RAILS UP, HOB AT 30 DEGREES, CALL LIGHT WITHIN REACH, ROOM FREE OF CLUTTER.
[2020-10-27 07:33] LABS: MAGNESIUM 1.4 mg/dL (1.8-2.4); PHOSPHORUS 3.6 mg/dL (2.5-4.9)
[2020-10-27 07:34] LABS: ALBUMIN 2.2 g/dL (3.4-5.0); ANION GAP 9.8 (8-16); CARBON DIOXIDE 35.2 mmol/L (21-32); CREATININE 0.7 mg/dL (0.6-1.3); TOTAL BILIRUBIN 0.3 mg/dL (0.0-1.0)
[2020-10-27 08:13] LABS: BASOPHILS # (AUTO) 0.1 K/uL (0.00-0.22); BASOPHILS % (AUTO) 0.8 % (0.0-2.0); EOSINOPHILS # (AUTO) 0.2 K/uL (0-0.4); HEMATOCRIT 30.9 % (36-48); HEMOGLOBIN 9.9 g/dL (12.0-16.0); LYMPHOCYTES # (AUTO) 2.2 K/uL (2.5-16.5); LYMPHOCYTES % (AUTO) 18.9 % (20.5-51.1); MEAN CORPUSCULAR HEMOGLOBIN 29 pg (27-31); MEAN CORPUSCULAR HGB CONC 32 g/dL (33-37); MEAN CORPUSCULAR VOLUME 90.9 fL (80-94); MONOCYTES # (AUTO) 1.4 K/uL (0.8-1.0); MONOCYTES % (AUTO) 12.6 % (1.7-9.3); NEUTROPHILS # (AUTO) 7.5 K/uL (1.8-7.7); NEUTROPHILS % (AUTO) 65.7 % (42.2-75.2); PLATELET COUNT (AUTO) 421 K/uL (140-450); RED BLOOD CELL COUNT(AUTO) 3.41 MIL/uL (4.20-5.40); RED CELL DISTRIBUTION WIDTH 15.6 % (11.6-13.7); WHITE BLOOD COUNT (AUTO) 11.4 K/uL (4.8-10.8)
[2020-10-27] MEDS ORDERED: MAG SULF 2000 MG/WATER PREMIX 50 ML IV ONE (11:40)
[2020-10-27] MEDS ORDERED: remdesivir CLINICAL MONITORING 1 EA MISC MC PRN (11:45)
[2020-10-27] MEDS: INSULIN NPH HUM/REG INSULIN HM 100 UNIT/ML 10 ML VIAL SUBQ SCH ×2 (12:00→21:32)
[2020-10-27] MEDS: INSULIN LANTUS 100 UNITS/ML 10 ML VIAL SUBQ SCH (12:00)
[2020-10-27] MEDS: APIXABAN 2.5 MG TAB PO SCH (12:25)
[2020-10-27] MEDS: QUEtiapine FUMARATE 25 MG TAB PO SCH ×2 (12:28→21:26)
[2020-10-27] MEDS: DOCUSATE 100 MG/10 ML UDC GT SCH (12:34)
[2020-10-27] MEDS: DEXAMETHASONE 4 MG/ML VIAL IVP SCH (12:35)
[2020-10-27] MEDS: FUROSEMIDE 20 MG/2 ML VIAL IVP SCH (12:35)
[2020-10-27] MEDS ORDERED: REMDESIVIR (EUA) 200 MG in NACL 0.9% 100 ML IV SCH (14:00)
[2020-10-27] MEDS ORDERED: REMDESIVIR (EUA) 100 MG in NACL 0.9% 100 ML IV SCH (17:00)
[2020-10-27] MEDS: BUDESONIDE 0.5 MG/2 ML NEBU INH SCH (19:37)
[2020-10-27] MEDS: ALBUTEROL SULFATE/IPRATROPIU 3 ML SOL IH SCH (19:37)
--- NOTE | 2020-10-27 20:00 | NUR ---
PATIENT WAS ACCEPTED AND ASSESS DONE PATIENT IS VERY OBESITY INTUBATE PRE OETT , TOLERATE THE VENT SETTING SAT 95-96WITH FIO2 AT 45% AND STABLE ON TUBE FEEDING TOLERATE FAIR PATIENT IN ISOLATION FRO COVID-19 , SEDATED ON VERSED AND DIPRIVAN DRIP COLOR FAIR SKIN WARM AND DRY HAS AN PICC LINE AND NO.20G BOTH PATENT FLUSH WITH NS WILL CONTINUED TO MONITOR AND PLAN OF CARE
[2020-10-27] MEDS: ENOXAPARIN 120 MG/0.8 ML SYR SUBQ SCH (21:27)
[2020-10-27] MEDS: ENOXAPARIN 30 MG/0.3 ML SYR SUBQ SCH (21:28)
[2020-10-28] VITALS (24 sets, daily range): BP systolic 95–156; BP diastolic 52–73
--- NOTE | 2020-10-28 | NUR ---
PATIENT HAS HI BLOOD GLUCOSE 389 NO INSULIN DRIP , COVERED WITH LARGE DOSE OF INSULIN , STABLE, PATIENT IS, NO TEMP NO CHANGES, STABLE
[2020-10-28] MEDS: PIPERACILLIN/TAZOBACTAM 3.375 GM in DEXTROSE 5% 50 ML IV SCH ×4 (00:24→19:06)
[2020-10-28] MEDS: ALBUTEROL SULFATE/IPRATROPIU 3 ML SOL IH SCH ×4 (01:51→20:00)
[2020-10-28] MEDS: PROPOFOL 1000 MG/100 ML PREMIX 100 ML IV PRN ×4 (01:52→12:53)
[2020-10-28] MEDS: BLOOD GLUCOSE MONITORING 1 DEV DEV FS SCH ×5 (02:30→18:00)
[2020-10-28] MEDS: MIDAZOLAM MDV 100 MG in NACL 0.9% 80 ML IV PRN (03:05)
--- NOTE | 2020-10-28 04:30 | NUR ---
AM CARE WAS GIVEN PATIENT AN VERY LARGE VERY SOFT BROWN STOOL APPROX, OF 200 ML , STABLE TAKE THREE PEOPLE TO TURN HER NOTICE NO SKIN PROBLEMS AT THIS TIME , WILL CONTINUED WITH PLAN OF CARE TAKE MANY BOTTLE OF DIPRIVAN INFUSION AT 40 MCG, STABLE NO RESTRAINT AT THIS TIME,STABLE
--- NOTE | 2020-10-28 06:00 | NUR ---
NO CHANGES TUBE FEEDING MAINTAIN AND PATENT MONITOR AND PLAN OF CARE, STABLE
[2020-10-28 06:18] LABS: BASOPHILS # (AUTO) 0.1 K/uL (0.00-0.22); BASOPHILS % (AUTO) 0.9 % (0.0-2.0); EOSINOPHILS # (AUTO) 0.3 K/uL (0-0.4); HEMOGLOBIN 10.4 g/dL (12.0-16.0); LYMPHOCYTES % (AUTO) 15.7 % (20.5-51.1); MEAN CORPUSCULAR HEMOGLOBIN 29 pg (27-31); MEAN CORPUSCULAR HGB CONC 32 g/dL (33-37); MEAN CORPUSCULAR VOLUME 91.2 fL (80-94); MONOCYTES # (AUTO) 1.4 K/uL (0.8-1.0); MONOCYTES % (AUTO) 10.9 % (1.7-9.3); NEUTROPHILS # (AUTO) 9.2 K/uL (1.8-7.7); NEUTROPHILS % (AUTO) 70.5 % (42.2-75.2); PLATELET COUNT (AUTO) 443 K/uL (140-450); RED BLOOD CELL COUNT(AUTO) 3.62 MIL/uL (4.20-5.40); RED CELL DISTRIBUTION WIDTH 15.7 % (11.6-13.7)
[2020-10-28] MEDS: BUDESONIDE 0.5 MG/2 ML NEBU INH SCH ×2 (07:03→19:30)
[2020-10-28] MEDS: INSULIN LISPRO SLIDING SCALE 100 UNITS/ML VIAL SUBQ PRN ×2 (07:53)
--- NOTE | 2020-10-28 08:33 | NUR ---
RECEIVED CRITICAL LAB FOR GLUCOSE 408, PRIMARY RN DWAIN MADE AWARE AND SHE SAID SHE WILL CALL .
[2020-10-28] MEDS: ENOXAPARIN 120 MG/0.8 ML SYR SUBQ SCH ×2 (09:00→21:53)
[2020-10-28] MEDS: ENOXAPARIN 30 MG/0.3 ML SYR SUBQ SCH ×2 (09:00→21:54)
[2020-10-28] MEDS: DOCUSATE 100 MG/10 ML UDC GT SCH (09:00)
[2020-10-28] MEDS: FUROSEMIDE 20 MG/2 ML VIAL IVP SCH (09:00)
[2020-10-28] MEDS: QUEtiapine FUMARATE 25 MG TAB PO SCH ×2 (09:00→21:51)
[2020-10-28] MEDS: DEXAMETHASONE 4 MG/ML VIAL IVP SCH (10:22)
[2020-10-28] MEDS: INSULIN NPH HUM/REG INSULIN HM 100 UNIT/ML 10 ML VIAL SUBQ SCH (10:24)
[2020-10-28] MEDS: INSULIN LANTUS 100 UNITS/ML 10 ML VIAL SUBQ SCH ×2 (10:26→21:00)
[2020-10-28] MEDS ORDERED: FUROSEMIDE 100 MG/10 ML VIAL IV ONE (12:35)
[2020-10-28] MEDS ORDERED: INSULIN LANTUS 100 UNITS/ML 10 ML VIAL SUBQ STA (12:40)
[2020-10-28] MEDS: PANTOPRAZOLE 40 MG INJ VIAL IVP SCH (12:45)
--- NOTE | 2020-10-28 14:18 | NUR ---
10/28/20 RD FOLLOW UP COMPLETED PLEASE REFER TO NUTRITION ASSESSMENT UNDER CARE ACTIVITY FOR ESTIMATED NUTRITIONAL NEEDS. 1. FOR CONTINUOUS ENTERAL FEEDING CONSIDER GLUCERNA 1.5 @ 60 ML/HR X 24 HR. -THIS PROVIDES 2160 KCAL AND 118 GM OF PROTEIN. 2. CONSIDER GLUCERNA 1.5 @ 120 ML/HR X 8 HOURS. START FEEDING AT 40 ML/HR AND INCREASE TOLERATED -THIS WILL PROVIDE 960 ML OF VOLUME, 728 ML OF WATER, 1440 KCAL, 79 GM OF PROTEIN. MEETING >75% OF KCAL AND PROTEIN NEEDS. 3. CONTINUE FREE WATER FLUSH OF 100 ML Q3H 4. RECOMMEND VITAMIN C 1000 MG AND VITAMIN D [address] TO FOLLOW-UP 2-3 DAYS, HIGH RISK DWAIN ADAMS RD
[2020-10-28 15:49] LABS: PHOSPHORUS 4.1 mg/dL (2.5-4.9)
[2020-10-28] MEDS: REMDESIVIR (EUA) 100 MG in NACL 0.9% 100 ML IV SCH (17:00)
[2020-10-28] MEDS: MIDAZOLAM MDV 50 MG in NACL 0.9% 40 ML IV PRN (23:16)
[2020-10-29] VITALS (26 sets, daily range): BP systolic 100–118; BP diastolic 51–70
[2020-10-29] MEDS: PIPERACILLIN/TAZOBACTAM 3.375 GM in DEXTROSE 5% 50 ML IV SCH ×4 (00:30→17:26)
[2020-10-29] MEDS: BLOOD GLUCOSE MONITORING 1 DEV DEV FS SCH ×4 (01:00→17:27)
[2020-10-29] MEDS: INSULIN LISPRO SLIDING SCALE 100 UNITS/ML VIAL SUBQ PRN ×4 (02:05→17:29)
[2020-10-29] MEDS: PROPOFOL 1000 MG/100 ML PREMIX 100 ML IV PRN ×4 (02:33→23:29)
[2020-10-29] MEDS: ALBUTEROL SULFATE/IPRATROPIU 3 ML SOL IH SCH (03:40)
[2020-10-29 06:47] LABS: BASOPHILS # (AUTO) 0.1 K/uL (0.00-0.22); EOSINOPHILS # (AUTO) 0.2 K/uL (0-0.4); EOSINOPHILS % (AUTO) 1.4 % (0.0-4.0); HEMATOCRIT 32.2 % (36-48); HEMOGLOBIN 10.2 g/dL (12.0-16.0); LYMPHOCYTES # (AUTO) 2.5 K/uL (2.5-16.5); MEAN CORPUSCULAR HEMOGLOBIN 29 pg (27-31); MEAN CORPUSCULAR HGB CONC 32 g/dL (33-37); MEAN CORPUSCULAR VOLUME 91.3 fL (80-94); MONOCYTES # (AUTO) 1.4 K/uL (0.8-1.0); MONOCYTES % (AUTO) 11.2 % (1.7-9.3); NEUTROPHILS # (AUTO) 8.3 K/uL (1.8-7.7); NEUTROPHILS % (AUTO) 66.4 % (42.2-75.2); PLATELET COUNT (AUTO) 413 K/uL (140-450); RED BLOOD CELL COUNT(AUTO) 3.53 MIL/uL (4.20-5.40); RED CELL DISTRIBUTION WIDTH 15.8 % (11.6-13.7); WHITE BLOOD COUNT (AUTO) 12.4 K/uL (4.8-10.8)
[2020-10-29 06:56] LABS: ALBUMIN 2.3 g/dL (3.4-5.0); ANION GAP 8.2 (8-16); CARBON DIOXIDE 36.7 mmol/L (21-32); CREATININE 0.8 mg/dL (0.6-1.3); MAGNESIUM 2.2 mg/dL (1.8-2.4); PHOSPHORUS 3.9 mg/dL (2.5-4.9); POTASSIUM 3.9 mmol/L (3.5-5.1); TOTAL BILIRUBIN 0.4 mg/dL (0.0-1.0)
[2020-10-29] MEDS ORDERED: INSULIN LANTUS 100 UNITS/ML 10 ML VIAL SUBQ SCH (09:00)
[2020-10-29] MEDS: PANTOPRAZOLE 40 MG INJ VIAL IVP SCH (09:21)
[2020-10-29] MEDS: QUEtiapine FUMARATE 25 MG TAB PO SCH ×2 (09:21→21:53)
[2020-10-29] MEDS: DEXAMETHASONE 4 MG/ML VIAL IVP SCH (09:22)
[2020-10-29] MEDS: DOCUSATE 100 MG/10 ML UDC GT SCH (09:22)
[2020-10-29] MEDS: FUROSEMIDE 20 MG/2 ML VIAL IVP SCH (09:23)
[2020-10-29] MEDS: INSULIN LANTUS 100 UNITS/ML 10 ML VIAL SUBQ SCH (09:29)
[2020-10-29] MEDS: ENOXAPARIN 120 MG/0.8 ML SYR SUBQ SCH ×2 (09:29→21:55)
[2020-10-29] MEDS: ENOXAPARIN 30 MG/0.3 ML SYR SUBQ SCH ×2 (09:31→21:54)
[2020-10-29] MEDS: REMDESIVIR (EUA) 100 MG in NACL 0.9% 100 ML IV SCH (12:35)
--- NOTE | 2020-10-29 13:02 | NUR ---
SBT ATTEMPTED, FAILED DUE TO TIDAL VOLUMES IN THE MID 150ML'S WITH PS OF 15. PLACED BACK ON PC SETTINGS
[2020-10-29] MEDS: MIDAZOLAM MDV 50 MG in NACL 0.9% 40 ML IV PRN ×2 (13:36→23:22)
[2020-10-30] VITALS (29 sets, daily range): BP systolic 106–130; BP diastolic 40–74
[2020-10-30] MEDS: PIPERACILLIN/TAZOBACTAM 3.375 GM in DEXTROSE 5% 50 ML IV SCH ×5 (01:00→23:01)
[2020-10-30] MEDS: BLOOD GLUCOSE MONITORING 1 DEV DEV FS SCH ×5 (01:10→23:40)
[2020-10-30] MEDS: INSULIN LANTUS 100 UNITS/ML 10 ML VIAL SUBQ SCH ×3 (01:18→20:40)
[2020-10-30] MEDS: INSULIN LISPRO SLIDING SCALE 100 UNITS/ML VIAL SUBQ PRN ×5 (01:21→23:41)
[2020-10-30] MEDS: PROPOFOL 1000 MG/100 ML PREMIX 100 ML IV PRN ×6 (02:32→21:43)
[2020-10-30 06:14] LABS: BASOPHILS # (AUTO) 0.1 K/uL (0.00-0.22); BASOPHILS % (AUTO) 1.1 % (0.0-2.0); EOSINOPHILS # (AUTO) 0.3 K/uL (0-0.4); EOSINOPHILS % (AUTO) 2.2 % (0.0-4.0); HEMATOCRIT 31.7 % (36-48); HEMOGLOBIN 10.1 g/dL (12.0-16.0); LYMPHOCYTES # (AUTO) 2.5 K/uL (2.5-16.5); LYMPHOCYTES % (AUTO) 19.1 % (20.5-51.1); MEAN CORPUSCULAR HEMOGLOBIN 29 pg (27-31); MEAN CORPUSCULAR HGB CONC 32 g/dL (33-37); MEAN CORPUSCULAR VOLUME 91.1 fL (80-94); MONOCYTES # (AUTO) 1.5 K/uL (0.8-1.0); MONOCYTES % (AUTO) 11.4 % (1.7-9.3); NEUTROPHILS # (AUTO) 8.7 K/uL (1.8-7.7); NEUTROPHILS % (AUTO) 66.2 % (42.2-75.2); PLATELET COUNT (AUTO) 405 K/uL (140-450); RED BLOOD CELL COUNT(AUTO) 3.48 MIL/uL (4.20-5.40); RED CELL DISTRIBUTION WIDTH 15.8 % (11.6-13.7); WHITE BLOOD COUNT (AUTO) 13.2 K/uL (4.8-10.8)
[2020-10-30 06:46] LABS: ALBUMIN 2.3 g/dL (3.4-5.0); ANION GAP 5.3 (8-16); CARBON DIOXIDE 39.5 mmol/L (21-32); CREATININE 0.8 mg/dL (0.6-1.3); POTASSIUM 3.8 mmol/L (3.5-5.1); TOTAL BILIRUBIN 0.4 mg/dL (0.0-1.0)
--- NOTE | 2020-10-30 07:30 | NUR ---
RECEIVED REPORT FROM CLINICAL SPECIALIST. ETT TO VENT, AC PC FI02 40%, RATE 20, PEEP 5. RASS-2, FLACC 0, NO APPARENT DISTRESS. HERMELINDA PICC IN PLACE, INFUSING PROPOFOL 25MCG/KG/MIN, VERSED 7 MG/HR, DRY WEIGHT 158.[address] CONNECTED TO FEEDING. SKIN WARM AND DRY, NOT INTACT, SMALL SKIN TEAR TO SACRUM. DRESSING IN PLACE. REDNESS IN ABDOMINAL AND BREAST FOLDS. GEORGE CATHETER IN PLACE, JAVIER URINE NOTED. DROPLET PRECAUTIONS IN PLACE, FLACC 0. WILL CONTINUE TO MONITOR.
[2020-10-30] MEDS: BUDESONIDE 0.5 MG/2 ML NEBU INH SCH ×2 (08:02→19:56)
[2020-10-30] MEDS: ALBUTEROL SULFATE/IPRATROPIU 3 ML SOL IH SCH ×3 (08:02→19:56)
[2020-10-30] MEDS: FUROSEMIDE 20 MG/2 ML VIAL IVP SCH (09:00)
[2020-10-30] MEDS: DOCUSATE 100 MG/10 ML UDC GT SCH (09:00)
[2020-10-30] MEDS: QUEtiapine FUMARATE 25 MG TAB PO SCH ×2 (09:00→20:04)
[2020-10-30] MEDS: PANTOPRAZOLE 40 MG INJ VIAL IVP SCH (09:00)
[2020-10-30] MEDS: ENOXAPARIN 30 MG/0.3 ML SYR SUBQ SCH ×2 (09:00→20:09)
[2020-10-30] MEDS: ENOXAPARIN 120 MG/0.8 ML SYR SUBQ SCH ×2 (09:00→20:08)
[2020-10-30] MEDS: DEXAMETHASONE 4 MG/ML VIAL IVP SCH (09:00)
--- NOTE | 2020-10-30 09:10 | NUR ---
DUE MEDS GIVEN VIA OGT. TOLERATED WELL
--- NOTE | 2020-10-30 10:00 | NUR ---
ORAL CARE, GEORGE CARE DONE. TURNED AND REPOSITIONED PT
[2020-10-30] MEDS: MIDAZOLAM MDV 50 MG in NACL 0.9% 40 ML IV PRN (10:05)
[2020-10-30] MEDS: REMDESIVIR (EUA) 100 MG in NACL 0.9% 100 ML IV SCH (13:24)
--- NOTE | 2020-10-30 17:00 | NUR ---
RASS-3, FLACC 0, NO APPARENT DISTRESS
[2020-10-30] MEDS: MIDAZOLAM MDV 100 MG in NACL 0.9% 80 ML IV PRN (18:00)
--- NOTE | 2020-10-30 19:30 | NUR ---
RECEIVED ENDORSEMENT FROM DAY SHIFT RN, PT SEDATED RASS -2, FLACC 0, SUPINE IN BED WITH HOB 30 DEGREES, ETT TO VENT, AC PC FI02 40%, RATE 20, PEEP 5. HERMELINDA PICC IN PLACE INFUSING PROPOFOL, VERSED AND NS TKO, DRY WEIGHT 158.[address] CONNECTED TO FEEDING. SKIN WARM AND DRY, NOT INTACT, SMALL SKIN TEAR TO SACRUM. DRESSING IN PLACE. REDNESS IN ABDOMINAL AND BREAST FOLDS. GEORGE CATHETER IN PLACE, JAVIER URINE NOTED. DROPLET PRECAUTIONS IN PLACE. WILL CONTINUE WITH CURRENT POC
--- NOTE | 2020-10-30 21:30 | NUR ---
ADMINISTERED 2100H MEDICATIONS PER ORDERED
--- NOTE | 2020-10-30 23:10 | NUR ---
PTS DAUGHTER CALLED IN REGARDS TO MOTHERS STATUS AND UPDATE
[2020-10-31] VITALS (31 sets, daily range): BP systolic 102–133; BP diastolic 52–71
[2020-10-31] MEDS: PROPOFOL 1000 MG/100 ML PREMIX 100 ML IV PRN ×3 (02:17→21:38)
[2020-10-31] MEDS: PIPERACILLIN/TAZOBACTAM 3.375 GM in DEXTROSE 5% 50 ML IV SCH ×4 (05:00→23:53)
[2020-10-31] MEDS: INSULIN LISPRO SLIDING SCALE 100 UNITS/ML VIAL SUBQ PRN ×3 (05:01→23:45)
[2020-10-31] MEDS: BLOOD GLUCOSE MONITORING 1 DEV DEV FS SCH ×4 (05:01→23:44)
[2020-10-31 06:08] LABS: BASOPHILS # (AUTO) 0.1 K/uL (0.00-0.22); BASOPHILS % (AUTO) 0.7 % (0.0-2.0); EOSINOPHILS # (AUTO) 0.3 K/uL (0-0.4); EOSINOPHILS % (AUTO) 2.6 % (0.0-4.0); HEMATOCRIT 31.4 % (36-48); LYMPHOCYTES # (AUTO) 2.3 K/uL (2.5-16.5); LYMPHOCYTES % (AUTO) 18.7 % (20.5-51.1); MEAN CORPUSCULAR HEMOGLOBIN 29 pg (27-31); MEAN CORPUSCULAR HGB CONC 32 g/dL (33-37); MEAN CORPUSCULAR VOLUME 90.5 fL (80-94); MONOCYTES # (AUTO) 1.3 K/uL (0.8-1.0); MONOCYTES % (AUTO) 10.8 % (1.7-9.3); NEUTROPHILS # (AUTO) 8.3 K/uL (1.8-7.7); NEUTROPHILS % (AUTO) 67.2 % (42.2-75.2); PLATELET COUNT (AUTO) 416 K/uL (140-450); RED BLOOD CELL COUNT(AUTO) 3.46 MIL/uL (4.20-5.40); RED CELL DISTRIBUTION WIDTH 15.7 % (11.6-13.7); WHITE BLOOD COUNT (AUTO) 12.4 K/uL (4.8-10.8)
[2020-10-31 06:45] LABS: ALBUMIN 2.2 g/dL (3.4-5.0); ANION GAP 7.1 (8-16); CARBON DIOXIDE 39.4 mmol/L (21-32); CREATININE 0.7 mg/dL (0.6-1.3); POTASSIUM 3.5 mmol/L (3.5-5.1); TOTAL BILIRUBIN 0.4 mg/dL (0.0-1.0)
[2020-10-31] MEDS: BUDESONIDE 0.5 MG/2 ML NEBU INH SCH ×2 (07:19→19:30)
[2020-10-31] MEDS: ALBUTEROL SULFATE/IPRATROPIU 3 ML SOL IH SCH ×3 (07:19→19:00)
--- NOTE | 2020-10-31 07:20 | NUR ---
ENDORSED TO DAY SHIFT RN FOR CONTINUITY OF CARE
--- NOTE | 2020-10-31 07:34 | NUR ---
RECEIVED REPORT FROM WASTE HANDLING TECHNICIAN. ETT TO VENT, AC PC FI02 45%, RATE 20, PEEP 5. RASS-2, FLACC 0, NO APPARENT DISTRESS. HERMELINDA PICC IN PLACE, INFUSING PROPOFOL 25MCG/KG/MIN, VERSED 7 MG/HR, DRY WEIGHT 158.[address] CONNECTED TO FEEDING. SKIN WARM AND DRY, NOT INTACT, SMALL SKIN TEAR TO SACRUM. DRESSING IN PLACE. REDNESS IN ABDOMINAL AND BREAST FOLDS. GEORGE CATHETER IN PLACE, JAVIER URINE NOTED. DROPLET PRECAUTIONS IN PLACE. WILL CONTINUE TO MONITOR.
--- NOTE | 2020-10-31 09:30 | NUR ---
DUE MEDS GIVEN VIA OGT. TOLERATED WELL. ORAL CARE AND GEORGE CARE DONE
[2020-10-31] MEDS: QUEtiapine FUMARATE 25 MG TAB PO SCH ×2 (09:35→20:00)
[2020-10-31] MEDS: DOCUSATE 100 MG/10 ML UDC GT SCH (09:35)
[2020-10-31] MEDS: PANTOPRAZOLE 40 MG INJ VIAL IVP SCH (09:35)
[2020-10-31] MEDS: DEXAMETHASONE 4 MG/ML VIAL IVP SCH (09:35)
[2020-10-31] MEDS: FUROSEMIDE 20 MG/2 ML VIAL IVP SCH (09:35)
[2020-10-31] MEDS: ENOXAPARIN 120 MG/0.8 ML SYR SUBQ SCH ×2 (09:36→20:01)
[2020-10-31] MEDS: INSULIN LANTUS 100 UNITS/ML 10 ML VIAL SUBQ SCH ×2 (09:36→21:33)
[2020-10-31] MEDS: ENOXAPARIN 30 MG/0.3 ML SYR SUBQ SCH ×2 (09:37→20:01)
--- NOTE | 2020-10-31 09:51 | NUR ---
BEGAN SBT PS 10, CPAP 5, FIO2 40%. HR 89. SAT STABLE 94%. NO SIGNS OF RESPIRATORY DISTRESS. WILL CONTINUE TO MONITOR.
[2020-10-31] MEDS: MIDAZOLAM MDV 100 MG in NACL 0.9% 80 ML IV PRN (09:58)
[2020-10-31] MEDS ORDERED: DEXMEDETOMIDINE HCL 400 MCG in NACL 0.9% 96 ML IV PRN (11:05)
--- NOTE | 2020-10-31 11:10 | NUR ---
PT STILL ON SBT. RASS-1, NO APPARENT DISTRESS
[2020-10-31] MEDS: REMDESIVIR (EUA) 100 MG in NACL 0.9% 100 ML IV SCH (13:00)
--- NOTE | 2020-10-31 13:15 | NUR ---
STOPPED SBT. PT WAS ABLE TO TOLERATE 3HRS CPAP
--- NOTE | 2020-10-31 14:56 | NUR ---
10/31/20 RD FOLLOW UP COMPLETED PLEASE REFER TO NUTRITION ASSESSMENT UNDER CARE ACTIVITY FOR ESTIMATED NUTRITIONAL NEEDS. 1. FOR CONTINUOUS ENTERAL FEEDING CONSIDER GLUCERNA 1.2 @ 70 ML/HR X 24 HR. -THIS PROVIDES 2160 KCAL AND 101 GM OF PROTEIN. MEETING 100% OF KCAL AND PROTEIN NEEDS. 2. CONTINUE FREE WATER FLUSH OF 100 ML Q8H 3. RECOMMEND GOLDIE BID 4. RD TO FOLLOW-UP 2-3 DAYS, HIGH RISK DWAIN ADAMS RD
--- NOTE | 2020-10-31 19:30 | NUR ---
RECEIVED REPORT FROM [facility] NURSE. PATIENT ETT TO VENT, PATENT, CLEAR, MAINTAINABLE. VENT SETTINGS AC PC, FIO2 35%, PEEP 5, RR 20. HOB AT 30 DEGREES TOLERATING WELL. PATIENT HAS OG TUBE SECURED, PATENT AND IN PLACE. CONTINUOUS TELE MONITOR, NORMAL SINUS RHYTHM, WILL CONTINUE TO CLOSELY MONITOR AND FREQUENTLY ROUND. IV ACCESS SITES INCLUDE RIGHT UPPER ARM PICC LINE DOUBLE LUMEN. GEORGE CATH IN PLACE, PATENT AND SECURED. PATIENT OFFLOADED FROM PRESSURE POINTS WITH USE OF PILLOWS AND FREQUENT REPOSITIONING. BED LOCKED AND LOWERED IN A POSITION OF SAFETY. WILL CONTINUE TO MONITOR FREQUENTLY.
--- NOTE | 2020-10-31 22:00 | NUR ---
ORAL CARE, ET TUBE SUCTIONING REPOSITIONING AND HYGIENE PROVIDED, PATIENT TOLERATING VENT/SETTINGS WELL. CONTINUOUSLY CARDIAC MONITORED. WILL CONTINUE TO FREQUENTLY ROUND AND CLOSELY MONITOR.
[2020-11-01] VITALS (26 sets, daily range): BP systolic 104–160; BP diastolic 56–84
--- NOTE | 2020-11-01 | NUR ---
PATIENT RESTING IN A POSITION OF COMFORT. HOB AT 30 DEGREES, POSITIONING ADJUSTED. PATIENT TOLERATING FIO2, PER RT, ADJUSTMENT WELL. WILL CONTINUE TO CLOSELY MONITOR AND FREQUENTLY ROUND.
--- NOTE | 2020-11-01 02:00 | NUR ---
PATIENT RESTING COMFORTABLY IN BED, HOB 30 DEGREES, OFFLOADED FROM PRESSURE POINTS, CLOSE MONITORING AND FREQUENT ROUNDING. ORAL CARE PROVIDED AND HYGIENE. WILL CONTINUE TO MONITOR.
[2020-11-01] MEDS: PROPOFOL 1000 MG/100 ML PREMIX 100 ML IV PRN (02:16)
--- NOTE | 2020-11-01 05:00 | NUR ---
GIVEN SPONGE BATH, HYGIENE, REPOSITIONING, ORAL CARE/SUCTIONING. TOLERATING VENT WELL ON CURRENT VENT SETTINGS. WILL CONTINUE TO CLOSELY MONITOR AND FREQUENTLY ROUND.
[2020-11-01] MEDS: PIPERACILLIN/TAZOBACTAM 3.375 GM in DEXTROSE 5% 50 ML IV SCH (05:01)
[2020-11-01] MEDS: BLOOD GLUCOSE MONITORING 1 DEV DEV FS SCH ×3 (05:16→17:59)
[2020-11-01 06:48] LABS: BASOPHILS # (AUTO) 0.2 K/uL (0.00-0.22); BASOPHILS % (AUTO) 1.3 % (0.0-2.0); EOSINOPHILS # (AUTO) 0.4 K/uL (0-0.4); EOSINOPHILS % (AUTO) 3.1 % (0.0-4.0); HEMATOCRIT 32.9 % (36-48); HEMOGLOBIN 10.4 g/dL (12.0-16.0); LYMPHOCYTES # (AUTO) 2.5 K/uL (2.5-16.5); LYMPHOCYTES % (AUTO) 21.7 % (20.5-51.1); MEAN CORPUSCULAR HEMOGLOBIN 29 pg (27-31); MEAN CORPUSCULAR HGB CONC 32 g/dL (33-37); MEAN CORPUSCULAR VOLUME 90.4 fL (80-94); MONOCYTES # (AUTO) 1.2 K/uL (0.8-1.0); MONOCYTES % (AUTO) 10.8 % (1.7-9.3); NEUTROPHILS # (AUTO) 7.3 K/uL (1.8-7.7); NEUTROPHILS % (AUTO) 63.1 % (42.2-75.2); PLATELET COUNT (AUTO) 421 K/uL (140-450); RED BLOOD CELL COUNT(AUTO) 3.64 MIL/uL (4.20-5.40); RED CELL DISTRIBUTION WIDTH 16.1 % (11.6-13.7); WHITE BLOOD COUNT (AUTO) 11.5 K/uL (4.8-10.8)
[2020-11-01] MEDS: ENOXAPARIN 120 MG/0.8 ML SYR SUBQ SCH ×2 (07:44→20:29)
[2020-11-01] MEDS: BUDESONIDE 0.5 MG/2 ML NEBU INH SCH ×2 (07:44→20:00)
[2020-11-01] MEDS: ALBUTEROL SULFATE/IPRATROPIU 3 ML SOL IH SCH ×3 (07:44→19:00)
[2020-11-01] MEDS: DOCUSATE 100 MG/10 ML UDC GT SCH (07:45)
[2020-11-01] MEDS: QUEtiapine FUMARATE 25 MG TAB PO SCH ×2 (07:49→20:28)
[2020-11-01] MEDS: PANTOPRAZOLE 40 MG INJ VIAL IVP SCH (07:49)
[2020-11-01] MEDS: FUROSEMIDE 20 MG/2 ML VIAL IVP SCH (07:50)
[2020-11-01] MEDS: DEXAMETHASONE 4 MG/ML VIAL IVP SCH (07:51)
[2020-11-01] MEDS: ENOXAPARIN 30 MG/0.3 ML SYR SUBQ SCH ×2 (07:54→20:29)
[2020-11-01] MEDS: DEXMEDETOMIDINE HCL 400 MCG in NACL 0.9% 96 ML IV PRN ×3 (08:12→23:14)
[2020-11-01 08:24] LABS: ALBUMIN 2.3 g/dL (3.4-5.0); CARBON DIOXIDE 37.8 mmol/L (21-32); CREATININE 0.7 mg/dL (0.6-1.3); TOTAL BILIRUBIN 0.5 mg/dL (0.0-1.0)
[2020-11-01] MEDS: INSULIN LANTUS 100 UNITS/ML 10 ML VIAL SUBQ SCH ×2 (09:00→20:29)
--- NOTE | 2020-11-01 09:30 | NUR ---
PROPOFOL TURNED OFF FOR SEDATION VACATION, RT MADE AWARE
--- NOTE | 2020-11-01 10:45 | NUR ---
STARTED SBT TRIAL, PT ON CPAP 5 PS 10. TOLERATING WELL. WILL CONTINUE TO MONITOR.
[2020-11-01 10:46] LABS: POTASSIUM 2.8 mmol/L (3.5-5.1)
[2020-11-01] MEDS: INSULIN LISPRO SLIDING SCALE 100 UNITS/ML VIAL SUBQ PRN ×2 (12:44→18:05)
[2020-11-01] MEDS: KCL 20 MEQ/WATER INJ PREMIX 200 ML IV PRN (12:45)
--- NOTE | 2020-11-01 15:13 | NUR ---
SBT TRIAL ENDED, PT TOLERATED WELL. PLACED PT BACK ON PC MODE WITH NO ISSUES.
--- NOTE | 2020-11-01 19:15 | NUR ---
RECEIVED PT REPORT FORM CHITRA RN, AT [facility], FOR CONTINUITY OF CARE. A/O X4. DENIES PAIN UPON QUESTIONING. PUPILS 3MM, PERRL, BRISK. CAP REFILL WITHIN 3 SEC. ETT TO VENT ON PRESCRIBED SETTINGS AND SATING WNL. LUNG SOUNDS COARSE THROUGHOUT. OGT IN PLACE WITH TUBE FEEDINGS RUNNING ORDERED. ZERO RESIDUAL NOTED. ABDOMEN LARGE, SOFT. NO DISCOMFORT NOTED. GEORGE IN PLACE DRAINING CLEAR, YELLOW URINE TO GRAVITY. SACRAL WOUND NOTED, COVERED WITH DRY DRESSING. HERMELINDA PICC IN PLACE INFUSING PRECEDEX ORDERED TO MAINTAIN RASS 0- -2. SAFETY PRECAUTIONS IN PLACE WITH BED LOW AND LOCKED. HOB >30 DEGREES. WILL CONT TO MONITOR.
[2020-11-02] VITALS (25 sets, daily range): BP systolic 86–137; BP diastolic 62–83
--- NOTE | 2020-11-02 | NUR ---
BED BATH PROVIDED W VAP ORAL CARE.. PT TOLERATED WELL,.
[2020-11-02] MEDS: BLOOD GLUCOSE MONITORING 1 DEV DEV FS SCH ×4 (00:34→18:17)
[2020-11-02] MEDS: INSULIN LISPRO SLIDING SCALE 100 UNITS/ML VIAL SUBQ PRN ×5 (00:35→22:45)
[2020-11-02] MEDS: ALBUTEROL SULFATE/IPRATROPIU 3 ML SOL IH SCH ×2 (01:25→07:00)
[2020-11-02 06:05] LABS: BASOPHILS # (AUTO) 0.1 K/uL (0.00-0.22); BASOPHILS % (AUTO) 1.1 % (0.0-2.0); EOSINOPHILS # (AUTO) 0.2 K/uL (0-0.4); EOSINOPHILS % (AUTO) 2.1 % (0.0-4.0); HEMATOCRIT 33.1 % (36-48); HEMOGLOBIN 10.5 g/dL (12.0-16.0); LYMPHOCYTES # (AUTO) 1.9 K/uL (2.5-16.5); LYMPHOCYTES % (AUTO) 17.9 % (20.5-51.1); MEAN CORPUSCULAR HEMOGLOBIN 29 pg (27-31); MEAN CORPUSCULAR HGB CONC 32 g/dL (33-37); MEAN CORPUSCULAR VOLUME 91.1 fL (80-94); MONOCYTES # (AUTO) 1.1 K/uL (0.8-1.0); MONOCYTES % (AUTO) 10.1 % (1.7-9.3); NEUTROPHILS # (AUTO) 7.5 K/uL (1.8-7.7); NEUTROPHILS % (AUTO) 68.8 % (42.2-75.2); PLATELET COUNT (AUTO) 392 K/uL (140-450); RED BLOOD CELL COUNT(AUTO) 3.63 MIL/uL (4.20-5.40); RED CELL DISTRIBUTION WIDTH 16.1 % (11.6-13.7); WHITE BLOOD COUNT (AUTO) 10.9 K/uL (4.8-10.8)
[2020-11-02 06:51] LABS: ALBUMIN 2.2 g/dL (3.4-5.0); ANION GAP 10.4 (8-16); CARBON DIOXIDE 35.7 mmol/L (21-32); CREATININE 0.7 mg/dL (0.6-1.3); POTASSIUM 3.1 mmol/L (3.5-5.1); TOTAL BILIRUBIN 0.4 mg/dL (0.0-1.0)
--- NOTE | 2020-11-02 07:15 | NUR ---
RECEIVED WINDOW SIDE REPORT FROM FIELD CARE COORDINATOR NURSE. PATIENT IN BED SUPINE, SEDATED TO RASS -2, BREATHING EVEN AND UNLABORED, NO SIGNS OF ACUTE DISTRESS NOTED. ETT TO VENT: ACPC 100% FIO2, RR 28, PEEP 5. OG TUBE TO FEEDING: GLUCERNA 1.2 @ 70 ML/HR. GEORGE CATHETER DRAINING TO GRAVITY. HERMELINDA PICC CLEAN DRY INTACT. INFUSING: PRECEDEX @ 0.2 MCG/KG/HR. MANAGER SAP IN PLACE, SAFETY MEASURES IN PLACE.
--- NOTE | 2020-11-02 07:15 | NUR ---
REPORT GIVEN TO DAYSHIFT NURSE, AT WINDOW, FOR CONTINUITY OF CARE. VSS, PICC PATENT AND INFUSING MEDS ORDERED.
[2020-11-02] MEDS: BUDESONIDE 0.5 MG/2 ML NEBU INH SCH (08:15)
--- NOTE | 2020-11-02 08:15 | NUR ---
RECEIVED ON Private OutletSCAPE R860 VENTILATOR PLUGGED INTO RED OUTLET TOLERATING WELL WITHOUT ADVERSE REACTIONS NOTED TO AN ENDOTRACHEAL TUBE #7.5 SECURED AT 23cm TEETH/GUM LINE WITH ANCHOR FAST CUFF PRESSURE CHECKED NOTED AMBU BAG AT BEDSIDE LOC AWAKE AND ALERT STABLE GOOD CHEST RISE ENDOTRACHEAL TUBE SUCTION FOR MODERATE SEMI THICK YELLOW WITH BLOOD TINGE SECRETIONS TO LARGE THIN BLOODY SECRETIONS WITH SMALL PLUG AIRWAY PATENT SATURATION 100% ON FIO2 OF 70% PEEP 5cmH2O TITRATED FIO2 TO 60% CARPENTER CRADLE AND DOLLY TO MONITOR AND TITRATE TOLERATED MARIANNE/RN NOTIFIED
[2020-11-02] MEDS: DOCUSATE 100 MG/10 ML UDC GT SCH (09:43)
[2020-11-02] MEDS: DEXAMETHASONE 4 MG/ML VIAL IVP SCH (09:44)
[2020-11-02] MEDS: QUEtiapine FUMARATE 25 MG TAB PO SCH ×2 (09:44→22:19)
[2020-11-02] MEDS: FUROSEMIDE 20 MG/2 ML VIAL IVP SCH (09:44)
[2020-11-02] MEDS: PANTOPRAZOLE 40 MG INJ VIAL IVP SCH (09:44)
[2020-11-02] MEDS: INSULIN LANTUS 100 UNITS/ML 10 ML VIAL SUBQ SCH ×2 (09:49→22:44)
--- NOTE | 2020-11-02 13:07 | NUR ---
STABLE ASLEEP RESTING WELL EASILY AWAKENS GOOD CHEST RISE AND AERATION THROUGHOUT BILATERAL LUNG CONRAD AIRWAY PATENT SATURATION 95% ON FIO2 OF 60% PEEP 5cmH2O TITRATED FIO2 TO 50% MARIANNE/RN NOTIFIED
--- NOTE | 2020-11-02 13:13 | NUR ---
WOUND CARE RE-EVALUATION NOTE: SKIN ASSESSMENT DONE WITH PRIMARY RN , PT. IS ALERT, EYES OPEN, POC DISCUSSED WITH PT. NO RESPONSE FROM PT. POC DISCUSSED WITH PRIMARY RN. RECOMMENDATIONS -ABDOMINAL FOLD INTERTRIGO RESOLVED, MAY CONTINUE INTER-DRY CLOTH PREVENTION -SACRALCOCCYX PRESSURE INJURY STAGE 2 DECREASING SIZE 0.5XO.5CM SUPERFICIAL DEPTH, MOIST, NO ODOR, ROCÍO WOUND SKIN BLANCHABLE REDNESS REMAIN, SKIN INTACT FOAM DRESSING APPLIED, CONTINUE OFFLOADING. -MAD TO BILATERAL INNER THIGHS, SKIN REDNESS, LEFT INNER THIGH, SKIN EROSION 1X1CM, WOUND BED IS 100% RED, MOIST, NO ODOR, APPLY Z GUARD BID AND PRN IF SOILING -RIGHT MEDIAL HEEL CLEAR FLUID BLISTER 2X3CM, SKIN INTACT, APPLY VERSATEL DRESSING, HEEL RAISER AND OFFLOADING
--- NOTE | 2020-11-02 13:18 | NUR ---
PEAK PRESSURE MAINTAINING AT [id number] OR LESS THAN ON PREESURE CONTROL CHANGE MODE TO AC THIS TIME CASHIER PARKING LOT TO MONITOR AND ADJUST ACCORDINGLY Addendum: 11/02/20 at 1432 by Geronimo Madera RT MARIANNE/HERBER NOTIFIED OF MODE CHANGE
[2020-11-02] MEDS: DEXMEDETOMIDINE HCL 400 MCG in NACL 0.9% 96 ML IV PRN ×3 (14:13→22:50)
--- NOTE | 2020-11-02 14:58 | NUR ---
RECEIVED A CALL FROM DAUGHTER , PROVIDED UPDATE AND ANSWERED ALL HER QUESTIONS, WAS AWARE OF PATIENT'S CURRENT CONDITION AND PLAN OF CARE.
--- NOTE | 2020-11-02 19:15 | NUR ---
PATIENT ENDORSED TO ENGINEERING SUPPLIES SALES NURSE FOR CONTINUITY OF CARE. PATIENT STABLE AT THIS TIME.
--- NOTE | 2020-11-02 19:30 | NUR ---
RECEIVED REPORT FROM RN DAYSHIFT NURSE AT BEDSIDE FOR CONTINUITY OF CARE, PT IN STABLE CONDITION.
--- NOTE | 2020-11-02 20:00 | NUR ---
PT IN BED, SHE WAS TURNED AND REPOSITIONED IN BED. PT FINGERSTICK IS 369, SHE WAS GIVEN 10 UNITS OF HUMALOG PER PROTOCOL HUMALOG S/S. PT TEMP WAS 100.4, COOLING MEASURES PROVIDED. WILL CONTINUE TO MONITOR PT TEMP AND OTHER V/S. PT WAS SUCTIONED X2 SMALL AMOUNT OF BLOOD NOTED IN THE TUBE. ALL FALLS AND COVID PROTOCOLS IN PLACE. V/S STABLE PT ABLE TO TRACK WITH EYES AND NOD HEAD.
--- NOTE | 2020-11-02 21:30 | NUR ---
PT WAS GIVEN 10 UNITS HUMALOG COVERAGE PER S/S. PT ALSO GIVEN ORDERED SEROQUEL CRUSHED VIA OG TUBE. PT ALSO RECEIVED 25 ORDERED UNITS OF LANTUS. ALL ORDERED PRECAUTIONS IN PLACE.
--- NOTE | 2020-11-02 22:30 | NUR ---
PT RESTING IN BED WITH EYES CLOSED BUT AROUSABLE TO NAME AND LIGHT SHAKING. PT WAS TURNED AND REPOSITIONED IN BED. HOB UP AND ALL ASPIRATION ,FALLS AND COVID PROTOCOL IN PLACE. PT RESTING SEDATION MEDICINE PRECEDEX WAS REPLACED ORDERED. PRECEDEX CONTINUES ON ORDERED 0.2MCG/KG/HR. NORMAL SALINE IS RUNNING AT 5MLS/HR TO KVO. ALL ORDERED PRECAUTIONS IN PLACE.
[2020-11-03] VITALS (25 sets, daily range): BP systolic 100–135; BP diastolic 58–73
[2020-11-03] MEDS: ALBUTEROL SULFATE/IPRATROPIU 3 ML SOL IH SCH ×4 (00:33→20:27)
[2020-11-03] MEDS: Z-GUARD PASTE TP SCH ×2 (01:00→13:49)
--- NOTE | 2020-11-03 01:00 | NUR ---
DAUGHTER CALLED AND WAS UPDATED ON PT CONDITION.
[2020-11-03] MEDS: DEXMEDETOMIDINE HCL 400 MCG in NACL 0.9% 96 ML IV PRN ×4 (02:46→17:27)
--- NOTE | 2020-11-03 04:00 | NUR ---
PT IN BED WAS TURNED , CHANGED AND REPOSITIONED IN BED.SHE CONTINUES ON ORDERED GTTS. T 99.3 P 84 R 20 B/P 92/49 02 97 ON ALL CURRENT VENT SETTINGS. ORAL CARE GIVEN AND ALL ORDERED PRECAUTIONS IN PLACE.
[2020-11-03] MEDS: BLOOD GLUCOSE MONITORING 1 DEV DEV FS SCH ×4 (06:00→18:03)
--- NOTE | 2020-11-03 06:00 | NUR ---
FINGERSTICK IS 368, PT GIVEN 10 UNITS OF HUMALOG PER S/S. ALL ORDERED PRECAUTIONS IN PLACE.
[2020-11-03 06:39] LABS: BASOPHILS # (AUTO) 0.1 K/uL (0.00-0.22); EOSINOPHILS # (AUTO) 0.2 K/uL (0-0.4); EOSINOPHILS % (AUTO) 1.8 % (0.0-4.0); HEMATOCRIT 31.3 % (36-48); HEMOGLOBIN 9.7 g/dL (12.0-16.0); LYMPHOCYTES # (AUTO) 1.4 K/uL (2.5-16.5); LYMPHOCYTES % (AUTO) 11.5 % (20.5-51.1); MEAN CORPUSCULAR HEMOGLOBIN 29 pg (27-31); MEAN CORPUSCULAR HGB CONC 31 g/dL (33-37); MEAN CORPUSCULAR VOLUME 92.6 fL (80-94); MONOCYTES % (AUTO) 8.3 % (1.7-9.3); NEUTROPHILS # (AUTO) 9.8 K/uL (1.8-7.7); NEUTROPHILS % (AUTO) 77.4 % (42.2-75.2); PLATELET COUNT (AUTO) 354 K/uL (140-450); RED BLOOD CELL COUNT(AUTO) 3.38 MIL/uL (4.20-5.40); WHITE BLOOD COUNT (AUTO) 12.6 K/uL (4.8-10.8)
[2020-11-03] MEDS: INSULIN LISPRO SLIDING SCALE 100 UNITS/ML VIAL SUBQ PRN ×3 (07:04→18:04)
[2020-11-03] MEDS: BUDESONIDE 0.5 MG/2 ML NEBU INH SCH ×2 (07:19→20:27)
--- NOTE | 2020-11-03 07:25 | NUR ---
RECEIVED ON A CareHubsSCAPE R860 VENTILATOR PLUGGED INTO RED OUTLET TOLERATING WELL WITHOUT INCIDENT TO AN ENDOTRACHEAL TUBE #7.5 SECURED 23cm TEETH/GUM LINE WITH AN ANCHOR FAST CUFF PRESSURE CHECKED NOTED AMBU BAG AT BEDSIDE LOC ASLEEP EASILY AWAKENS EQUAL CHEST RISE ENDOTRACHEAL SUCTION FOR MODERATE THIN "STRINGY" BROWN SECRETIONS (OLD BLOOD) AIRWAY PATENT SATURATION 97% ON FIO2 OF 50% PEEP 5cmH2O TITRATED FIO2 TO 45% MILLA/RN NOTIFIED
[2020-11-03 07:35] LABS: ANION GAP 8.6 (8-16); CARBON DIOXIDE 34.4 mmol/L (21-32); CREATININE 0.7 mg/dL (0.6-1.3); TOTAL BILIRUBIN 0.5 mg/dL (0.0-1.0)
[2020-11-03] MEDS: FUROSEMIDE 20 MG/2 ML VIAL IVP SCH (08:28)
[2020-11-03] MEDS: DOCUSATE 100 MG/10 ML UDC GT SCH (08:28)
[2020-11-03] MEDS: DEXAMETHASONE 4 MG/ML VIAL IVP SCH (08:28)
[2020-11-03] MEDS: QUEtiapine FUMARATE 25 MG TAB PO SCH (08:28)
[2020-11-03] MEDS: INSULIN LANTUS 100 UNITS/ML 10 ML VIAL SUBQ SCH ×2 (08:29→20:55)
[2020-11-03] MEDS: PANTOPRAZOLE 40 MG INJ VIAL IVP SCH (08:29)
[2020-11-03] MEDS: ENOXAPARIN 40 MG/0.4 ML SYR SUBQ SCH (08:29)
--- NOTE | 2020-11-03 08:38 | NUR ---
BLOOD GLUCOSE 336, CHECKED OGT RESIDUAL RECEIVED 40 ML WHITE RESIDUAL. ADMINISTERED AM SCHEDULED MEDS PER MD ORDER, HELD LOVENOX PER DR MG ORDER DUE TO PINK TINGED SECRETION FROM SUCTIONING, FLUSHED BEFORE AND AFTER MEDS. MEDS EDUCATION PROVIDED, PATIENT'S EYES OPEN AND NODDING TALKING TO HER. PROVIDED AM HYGIENE CARE, ORAL CARE, GEORGE CARE AND CHG BATH, PATIENT TOLERATED FAIR, WHEN ASK IF SHE HAS ANY DISCOMFORT, PATIENT SHAKES HER HEAD. PATIENT REMAINS ON ETT TO VENT AC/VC FIO2 45%, RATE 20, PEEP 5, TIDAL VOLUME 450, SPO2 AT 95%. PATIENT IS CONTINUE ON PRECEDEX AT 0.2 MCG/KG/HR. BILATERAL HEEL BOOTS IN PLACE, AND WOUND BED IS ON. WITH ASSIST, REPOSITIONED PATIENT, PILLOWS USED TO OFFLOADED PRESSURE. ELEVATOR BUILDER AND PULSE MONITOR IN PLACE. SAFETY MEASURES IN PLACE. BED IN LOW POSITION, HOB ELEVATED 35 DEGREE, CALL LIGHT WITHIN REACH. INSTRUCTED PATIENT TO USE THE CALL LIGHT FOR ANY ASSISTANCE AND PATIENT NODDED AND BLINKED HER EYES.
[2020-11-03] MEDS: KCL 20 MEQ/WATER INJ PREMIX 200 ML IV PRN (09:00)
--- NOTE | 2020-11-03 09:01 | NUR ---
1ST BAG OF 20 MEQ POTASSIUM CHLORIDE GIVEN FOR LOW POTASSIUM 3.0 FROM AM LAB.
--- NOTE | 2020-11-03 10:30 | NUR ---
DR MG IS ROUNDING ON PATIENT.
--- NOTE | 2020-11-03 10:46 | NUR ---
DR. DAMIEN MG AT BEDSIDE REVIEWED PATIENT STATUS, PULMONARY SECRETIONS, VENTILATOR SETTINGS AND READINGS, DIAGNOSTIC (MONITOR) READINGS NEW VORBO: OKAY TO START CPAP/SBT TRIALS WITH ABG IF TOLERATING
--- NOTE | 2020-11-03 12:33 | NUR ---
BLOOD GLUCOSE 340, 8 UNIT HUMALOG GIVEN, PATIENT AWAKE AND RESTING ON BED. SAFETY MEASURES IN PLACE.
--- NOTE | 2020-11-03 13:13 | NUR ---
RECEIVED A CALL FROM DAUGHTER , PROVIDED UPDATE AND ANSWERED ALL HER QUESTIONS, WAS AWARE OF PATIENT'S CURRENT CONDITION AND PLAN OF CARE.
--- NOTE | 2020-11-03 13:50 | NUR ---
2ND BAG OF 20 MEQ POTASSIUM CHLORIDE GIVEN FOR LOW POTASSIUM 3.0 FROM AM LAB.
--- NOTE | 2020-11-03 13:55 | NUR ---
PLACED ON CPAP/SBT TRIAL PEEP 5cmH2O ps [id number] TOLERATED TRIAL SET FOR 6 HOURS MILLA/RN NOTIFIED
--- NOTE | 2020-11-03 15:07 | NUR ---
11/03/20 RD FOLLOW UP COMPLETED PLEASE REFER TO NUTRITION ASSESSMENT UNDER CARE ACTIVITY FOR ESTIMATED NUTRITIONAL NEEDS. 1. CONT. GLUCERNA 1.2 @ 70 ML/HR X 24 HR WITH GOLDIE BID -THIS PROVIDES 2160 KCAL AND 101 GM OF PROTEIN. MEETING 100% OF KCAL AND PROTEIN NEEDS. 2. CONT. FREE WATER FLUSH OF [address] TO FOLLOW-UP 2-3 DAYS, HIGH RISK DWAIN ADAMS RD
--- NOTE | 2020-11-03 16:00 | NUR ---
RESTING WELL TOLERATING CPAP/SBT TRIALS WELL WITHOUT ADVERSE REACTIONS NOTED GOOD CHEST RISE ENDOTRACHEAL TUBE SUCTION FOR LARGE THIN BROWN SECRETIONS AIRWAY PATENT
--- NOTE | 2020-11-03 16:52 | NUR ---
STARTED A NEW BOTTLE OF GLUCERNA 1.2 AT 70 ML/HR, CHANGED ALL TUBINGS.
--- NOTE | 2020-11-03 17:50 | NUR ---
PATIENT IS USING HER PHONE TO FACE TIME WITH HER DAUGHTER . NO SIGNS OF ACUTE DISTRESS NOTED. SAFETY MEASURES IN PLACE.
--- NOTE | 2020-11-03 18:04 | NUR ---
BLOOD GLUCOSE 324, 8 UNIT HUMALOG GIVEN VIA SUBQ. WITH ASSIST FROM EMT, PROVIDED HYGIENE CARE, REPOSITIONED PATIENT, AND PILLOW USED TO OFF LOADED PRESSURES, HEEL BOOTS IN PLACE BILATERALLY. POSITIONED PATIENT COMFORTABLY, PATIENT IS WATCHING TV ON BED. ETT TUBE SECURED AND INTACT. SAFETY MEASURES IN PLACE. BED IN LOW POSITION AND CALL LIGHT WITHIN REACH. INSTRUCTED PATIENT TO USE THE CALL LIGHT FOR ANY ASSISTANCE AND PATIENT WAS AWARE.
--- NOTE | 2020-11-03 19:20 | NUR ---
ENDORSED TO CYTOLOGY TEACHER NURSE HAZEL FOR CONTINUITY OF CARE. PATIENT IS IN STABLE CONDITION. SAFETY MEASURES IN PLACE.
--- NOTE | 2020-11-03 20:00 | NUR ---
RECEIVED PT REPORT FROM CHITRA CRAVEN. PT ETT TO VENT ON CPAP TRIAL. RESPIRATION EVEN AND UNLABORED. CHEST EXPANSION SYMMETRICAL. LUNG SOUNDS DIMINISHED UPON AUSCULTATION. OGT IN PLACE WITH FEEDING ORDERED. ABDOMEN SOFT, LARGE, ROUND, NON-TENDER. RIGHT UPPER ARM PICC ASYMPTOMATIC PATENT AND INTACT, INFUSING PRECEDEX @ 0.2 MCG/KG/HR. SKIN WARM, DRY AND NON INTACT. SEE WOUND DOCUMENTATION. HOB ELEVATED, BED LOW AND LOCKED, SAFETY PRECAUTIONS OBSERVED, ISOLATION PRECAUTION MAINTAINED. WILL CONTINUE TO MONITOR.
[2020-11-04] VITALS (27 sets, daily range): BP systolic 119–150; BP diastolic 53–98
--- NOTE | 2020-11-04 | NUR ---
TURNED AND REPOSITIONED PT. WILL CONTINUE TO MONITOR.
[2020-11-04] MEDS: ALBUTEROL SULFATE/IPRATROPIU 3 ML SOL IH SCH ×4 (00:29→20:07)
[2020-11-04] MEDS: Z-GUARD PASTE TP SCH ×2 (01:00→13:00)
[2020-11-04] MEDS: INSULIN LISPRO SLIDING SCALE 100 UNITS/ML VIAL SUBQ PRN ×5 (03:09→23:51)
--- NOTE | 2020-11-04 04:00 | NUR ---
PT CONDITION REMAINS UNCHANGED. WILL CONTINUE TO MONITOR.
[2020-11-04 05:51] LABS: BASOPHILS # (AUTO) 0.1 K/uL (0.00-0.22); BASOPHILS % (AUTO) 1.3 % (0.0-2.0); EOSINOPHILS # (AUTO) 0.3 K/uL (0-0.4); EOSINOPHILS % (AUTO) 3.3 % (0.0-4.0); HEMATOCRIT 30.8 % (36-48); HEMOGLOBIN 9.8 g/dL (12.0-16.0); LYMPHOCYTES # (AUTO) 1.6 K/uL (2.5-16.5); LYMPHOCYTES % (AUTO) 15.7 % (20.5-51.1); MEAN CORPUSCULAR HEMOGLOBIN 29 pg (27-31); MEAN CORPUSCULAR HGB CONC 32 g/dL (33-37); MEAN CORPUSCULAR VOLUME 92.1 fL (80-94); MONOCYTES # (AUTO) 0.9 K/uL (0.8-1.0); MONOCYTES % (AUTO) 8.5 % (1.7-9.3); NEUTROPHILS # (AUTO) 7.4 K/uL (1.8-7.7); NEUTROPHILS % (AUTO) 71.2 % (42.2-75.2); PLATELET COUNT (AUTO) 362 K/uL (140-450); RED BLOOD CELL COUNT(AUTO) 3.34 MIL/uL (4.20-5.40); WHITE BLOOD COUNT (AUTO) 10.3 K/uL (4.8-10.8)
[2020-11-04] MEDS: BLOOD GLUCOSE MONITORING 1 DEV DEV FS SCH ×5 (06:59→23:52)
--- NOTE | 2020-11-04 07:00 | NUR ---
ENDORSED PT TO DAY SHIFT RN FOR CONTINUITY OF CARE.
--- NOTE | 2020-11-04 07:00 | NUR ---
REPORT GIVEN BY HERBER OLIVA ORALLY INTUBATED AND ON PRECEDEX DRIP.W/ PATENT CONTRAPTIONS. PT AWAKE AND ALERT AND HOLDING HER ET TUBE.MOBID OBESE.DENIES PAIN AND NOT ON VASOPRESSOR.
[2020-11-04 07:59] LABS: ALBUMIN 2.2 g/dL (3.4-5.0); ANION GAP 6.2 (8-16); CARBON DIOXIDE 37.1 mmol/L (21-32); CREATININE 0.7 mg/dL (0.6-1.3); POTASSIUM 3.3 mmol/L (3.5-5.1); TOTAL BILIRUBIN 0.4 mg/dL (0.0-1.0)
[2020-11-04] MEDS: BUDESONIDE 0.5 MG/2 ML NEBU INH SCH ×2 (08:28→19:30)
[2020-11-04] MEDS: PANTOPRAZOLE 40 MG INJ VIAL IVP SCH (09:00)
[2020-11-04] MEDS: DEXAMETHASONE 4 MG/ML VIAL IVP SCH (09:00)
[2020-11-04] MEDS: DOCUSATE 100 MG/10 ML UDC GT SCH (09:00)
[2020-11-04] MEDS: ENOXAPARIN 40 MG/0.4 ML SYR SUBQ SCH (09:00)
[2020-11-04] MEDS: INSULIN LANTUS 100 UNITS/ML 10 ML VIAL SUBQ SCH ×2 (09:45→23:00)
[2020-11-04] MEDS: FUROSEMIDE 20 MG/2 ML VIAL IVP SCH (09:50)
--- NOTE | 2020-11-04 10:00 | NUR ---
STARTED SBT TRIAL ON CPAP 5 PS 10. TOLERATING WELL, WILL CONTINUE TO MONITOR.
--- NOTE | 2020-11-04 12:00 | NUR ---
TRYING TO GET OUT OF BED.PRECEDEX UP TO .0.5 MCG AND PT CALMED DOWN AND SLEPT.FOR A WHILE AND PRECEDEX DOWN TO 0.2MCG.
[2020-11-04] MEDS: DEXMEDETOMIDINE HCL 400 MCG in NACL 0.9% 96 ML IV PRN ×3 (12:01→18:31)
--- NOTE | 2020-11-04 17:00 | NUR ---
SBT TRIAL ENDED, TOTAL OF 7 HOURS ON CPAP 5 PS 12, TITRATED TO PS 10. PT WAS GETTING TIRED AND WANTED A BREAK. PLACED BACK ON AC MODE WITH NO ISSUES.
--- NOTE | 2020-11-04 17:55 | NUR ---
WHILE PM CARE RENDERED PT VOMITTED TO A PREVIOUSLY TAKEN FEEDING.PRN MED REGLAN GIVEN AND FEEDING HELD TEMPORARILY.
[2020-11-04] MEDS: METOCLOPRAMIDE 10 MG/2 ML INJ VIAL IVP PRN (18:39)
--- NOTE | 2020-11-04 19:08 | NUR ---
ALL NEEDS ATTENDED AND MET DURING THE SHIFT.CONDITION STATUS QUO.FOR FURTHER CARE AND ENDORSED TO HAZEL CONDITION STATUS QUO FOR CONTINUITY OF CARE.
[2020-11-05] VITALS (30 sets, daily range): BP systolic 91–144; BP diastolic 46–90
[2020-11-05] MEDS: Z-GUARD PASTE TP SCH ×2 (01:00→13:06)
[2020-11-05] MEDS: ALBUTEROL SULFATE/IPRATROPIU 3 ML SOL IH SCH ×4 (01:11→19:55)
[2020-11-05] MEDS: DEXMEDETOMIDINE HCL 400 MCG in NACL 0.9% 96 ML IV PRN ×2 (04:38→17:13)
[2020-11-05 06:23] LABS: BASOPHILS % (AUTO) 0.4 % (0.0-2.0); EOSINOPHILS # (AUTO) 0.6 K/uL (0-0.4); EOSINOPHILS % (AUTO) 5.5 % (0.0-4.0); HEMATOCRIT 28.6 % (36-48); HEMOGLOBIN 9.1 g/dL (12.0-16.0); LYMPHOCYTES # (AUTO) 2.1 K/uL (2.5-16.5); LYMPHOCYTES % (AUTO) 20.1 % (20.5-51.1); MEAN CORPUSCULAR HEMOGLOBIN 29 pg (27-31); MEAN CORPUSCULAR HGB CONC 32 g/dL (33-37); MEAN CORPUSCULAR VOLUME 91.4 fL (80-94); MONOCYTES # (AUTO) 0.9 K/uL (0.8-1.0); MONOCYTES % (AUTO) 8.4 % (1.7-9.3); NEUTROPHILS # (AUTO) 6.8 K/uL (1.8-7.7); NEUTROPHILS % (AUTO) 65.6 % (42.2-75.2); PLATELET COUNT (AUTO) 340 K/uL (140-450); RED BLOOD CELL COUNT(AUTO) 3.13 MIL/uL (4.20-5.40); RED CELL DISTRIBUTION WIDTH 16.3 % (11.6-13.7); WHITE BLOOD COUNT (AUTO) 10.4 K/uL (4.8-10.8)
[2020-11-05 06:47] LABS: ALBUMIN 2.2 g/dL (3.4-5.0); ANION GAP 9.8 (8-16); CARBON DIOXIDE 34.7 mmol/L (21-32); CREATININE 0.6 mg/dL (0.6-1.3); POTASSIUM 3.5 mmol/L (3.5-5.1); TOTAL BILIRUBIN 0.4 mg/dL (0.0-1.0)
[2020-11-05] MEDS: BLOOD GLUCOSE MONITORING 1 DEV DEV FS SCH ×4 (06:50→23:00)
--- NOTE | 2020-11-05 07:00 | NUR ---
REPORT GIVEN BY RN January ON PRECEDEX DRIP.ABLE TO FOLLOW COMMAND.W/ PATENT CONTRAPTIONS.NOT IN ANY FORM OF DISTRESS LYING COMFORTABLY ON BED.
[2020-11-05] MEDS: BUDESONIDE 0.5 MG/2 ML NEBU INH SCH ×2 (07:15→20:09)
[2020-11-05] MEDS: FUROSEMIDE 20 MG/2 ML VIAL IVP SCH (09:00)
[2020-11-05] MEDS: ENOXAPARIN 40 MG/0.4 ML SYR SUBQ SCH (09:00)
[2020-11-05] MEDS: INSULIN LANTUS 100 UNITS/ML 10 ML VIAL SUBQ SCH ×2 (09:00→23:00)
[2020-11-05] MEDS: PANTOPRAZOLE 40 MG INJ VIAL IVP SCH (09:00)
[2020-11-05] MEDS: DEXAMETHASONE 4 MG/ML VIAL IVP SCH (09:00)
[2020-11-05] MEDS: DOCUSATE 100 MG/10 ML UDC GT SCH (09:00)
--- NOTE | 2020-11-05 11:19 | NUR ---
SBT STARTED ON PT. PT AWAKE AND ALERT. CPAP 5 PS 10 FIO2 35%. NURSE MADE AWARE. WILL CONTINUE TO MONITOR.
--- NOTE | 2020-11-05 13:00 | NUR ---
SEEN AND EXAMINED BY DR MAYEN AND VENT SETTING TO CPAP. PT TOLERATING CPAP.KEPT ON CLOSE WATCH.
--- NOTE | 2020-11-05 13:19 | NUR ---
DR LEONARD AT BEDSIDE, TO KEEP PT ON C-PAP AT CURRENT SETTING UNTIL TOMORROW.
--- NOTE | 2020-11-05 13:27 | NUR ---
SPOKE TO AND PHYSICIAN STATES TO LEAVE PT ON CPAP 5 PS 10 AND FIO2 35% ALL NIGHT TILL MORNING LONG PT TOLERATES FOR POSSIBLE EXTUBATION TOMORROW. NURSE MADE AWARE.
--- NOTE | 2020-11-05 14:06 | NUR ---
PT REMAINS ON SBT CPAP 5 PS 10 AND FIO2 30%. PT AWAKE, ALERT IN BED WATCHING TV. WEANING PARAMETERS PERFORMED AND ADEQUATE AT THIS TIME. WILL CONTINUE TO MONITOR.
--- NOTE | 2020-11-05 15:30 | NUR ---
COMPLETE BED BATH DONE . SUCTIONING OF ORAL AND VIA ETT DONE OBTAINED BROWNISH SECRETIONS.MODERATE IN AMOUNT. REPOSITIONED AFTER AND MAINTAINED ON 30 DEGREES HOB TO FACILITATE EASY BREATHING AND PREVENT ASPIRATION.
--- NOTE | 2020-11-05 17:07 | NUR ---
PT REMAINS ON SBT TOLERATING WELL. PT IS AWAKE AND ALERT AND ABLE TO FOLLOW COMMANDS. VENT ALARMS ON AND FUNCTIONING. ETT IS SECURE WITH A PATENT AIRWAY.
[2020-11-05] MEDS: INSULIN LISPRO SLIDING SCALE 100 UNITS/ML VIAL SUBQ PRN (17:23)
--- NOTE | 2020-11-05 17:44 | NUR ---
PT TOLERATING CPAP.NOT IN RESPIRATORY DISTRESS,STILL ON PRECEDEX DRIP @ 0.2 MCG/KG.AWAKE AND FOLLOW SIMPLE COMMAND. DENIES PAIN WHEN ASKED.
--- NOTE | 2020-11-05 19:55 | NUR ---
RECEIVED PT FROM DAY SHIFT ON CPAP PS 10, PEEP 5, FIO2 30%. PT INTUBATED WITH SIZE 7.5 ETT, SECURED WITH ANCHOR FAST @ 23CM @ LIP. PT AWAKE AND ALERT, AIRWAY PATENT. VENTILATOR PLUGGED INTO THE RED OUTLET, AMBU BAG AT BEDSIDE. ALARMS SET AUDIBLE, PT TOLERATING WELL. WILL CONTINUE TO MONITOR.
[2020-11-05] MEDS: ACETAMINOPHEN 325 MG TAB PO PRN (23:49)
[2020-11-06] VITALS (26 sets, daily range): BP systolic 97–139; BP diastolic 56–86
[2020-11-06] MEDS: INSULIN LISPRO SLIDING SCALE 100 UNITS/ML VIAL SUBQ PRN ×4 (01:00→16:55)
[2020-11-06] MEDS: ALBUTEROL SULFATE/IPRATROPIU 3 ML SOL IH SCH ×4 (01:25→13:00)
[2020-11-06] MEDS: Z-GUARD PASTE TP SCH ×2 (01:33→12:12)
[2020-11-06] MEDS: DEXMEDETOMIDINE HCL 400 MCG in NACL 0.9% 96 ML IV PRN (04:56)
[2020-11-06] MEDS: BLOOD GLUCOSE MONITORING 1 DEV DEV FS SCH ×3 (06:26→16:54)
[2020-11-06 07:07] LABS: ALBUMIN 2.2 g/dL (3.4-5.0); CREATININE 0.7 mg/dL (0.6-1.3); POTASSIUM 3.3 mmol/L (3.5-5.1)
[2020-11-06] MEDS: BUDESONIDE 0.5 MG/2 ML NEBU INH SCH ×2 (07:14→07:30)
--- NOTE | 2020-11-06 07:40 | NUR ---
RECEIVED REPORT FROM LUMP RECEIVER NURSE. PATIENT IN CRITICAL CONDITION.
[2020-11-06 08:14] LABS: ANION GAP 11.4 (8-16); CARBON DIOXIDE 32.9 mmol/L (21-32); TOTAL BILIRUBIN 0.5 mg/dL (0.0-1.0)
[2020-11-06 08:26] LABS: BASOPHILS # (AUTO) 0.1 K/uL (0.00-0.22); BASOPHILS % (AUTO) 1.4 % (0.0-2.0); EOSINOPHILS # (AUTO) 0.5 K/uL (0-0.4); EOSINOPHILS % (AUTO) 6.5 % (0.0-4.0); HEMATOCRIT 31.5 % (36-48); HEMOGLOBIN 10.1 g/dL (12.0-16.0); LYMPHOCYTES # (AUTO) 1.5 K/uL (2.5-16.5); LYMPHOCYTES % (AUTO) 21.3 % (20.5-51.1); MEAN CORPUSCULAR HEMOGLOBIN 29 pg (27-31); MEAN CORPUSCULAR HGB CONC 32 g/dL (33-37); MEAN CORPUSCULAR VOLUME 90.9 fL (80-94); MONOCYTES # (AUTO) 0.6 K/uL (0.8-1.0); MONOCYTES % (AUTO) 8.1 % (1.7-9.3); NEUTROPHILS # (AUTO) 4.5 K/uL (1.8-7.7); NEUTROPHILS % (AUTO) 62.7 % (42.2-75.2); PLATELET COUNT (AUTO) 297 K/uL (140-450); RED BLOOD CELL COUNT(AUTO) 3.46 MIL/uL (4.20-5.40); RED CELL DISTRIBUTION WIDTH 15.9 % (11.6-13.7); WHITE BLOOD COUNT (AUTO) 7.2 K/uL (4.8-10.8)
[2020-11-06] MEDS: DOCUSATE 100 MG/10 ML UDC GT SCH (08:47)
[2020-11-06] MEDS: DEXAMETHASONE 4 MG/ML VIAL IVP SCH (08:48)
[2020-11-06] MEDS: FUROSEMIDE 20 MG/2 ML VIAL IVP SCH (08:48)
[2020-11-06] MEDS: PANTOPRAZOLE 40 MG INJ VIAL IVP SCH (08:52)
[2020-11-06] MEDS: ENOXAPARIN 40 MG/0.4 ML SYR SUBQ SCH (08:53)
[2020-11-06] MEDS: INSULIN LANTUS 100 UNITS/ML 10 ML VIAL SUBQ SCH ×2 (08:57→21:00)
--- NOTE | 2020-11-06 09:12 | NUR ---
ABG RESULTS GIVEN TO PHYSICIAN STATES TO EXTUBATE PT @1000. PHYSICIAN ALSO STATES FOR PT TO BE ON BIPAP @NOC SETTINGS 14/7,R12 AND FIO2 30% AND MONITOR VT.
--- NOTE | 2020-11-06 09:25 | NUR ---
SCHEDULED MEDICATIONS DUE GIVEN.
--- NOTE | 2020-11-06 10:15 | NUR ---
PT EXTUBATED AT 10:15AM TO 3LNC SATURATING 97-99 TOLERATING WELL WOB IS ADEQUATE NO DISTRESS NOTED, MINIMAL SECRETIONS NOTED AND SUCTIONED.
[2020-11-06] MEDS: KCL 20 MEQ/WATER INJ PREMIX 200 ML IV PRN (11:27)
--- NOTE | 2020-11-06 11:33 | NUR ---
Татьяна GONZALES STARTED FOR K 3.3 THIS AM
--- NOTE | 2020-11-06 12:11 | NUR ---
2 UNITS OF INSULIN GIVEN PER SLIDING SCALE FOR BS 191
--- NOTE | 2020-11-06 12:12 | NUR ---
PT ASSISTED TO MAKE PHONE CALL TO DAUGHTER , PT ABLE TO SPEAK A LITTLE WITH LOW RASPY VOICE. MADE AWARE OF PT'S CURRENT CONDITION.
--- NOTE | 2020-11-06 15:23 | NUR ---
11/06/20 RD FOLLOW UP COMPLETED PLEASE REFER TO NUTRITION PROGRESS NOTES UNDER CARE ACTIVITY FOR ESTIMATED NUTRITIONAL NEEDS. RD RECOMMENDATIONS: 1. CONTINUE NPO DIET 2. START NUTRITION SUPPORT / DIET WHEN MEDICALLY CLEARED PER SWALLOW EVALUATION RESULTS. SWALLOW EVAL IS SCHEDULED FOR TOMORROW 11/07/20 3. ESTIMATED NUTRITIONAL NEEDS TO BE MET ARE 2000KCALS, 80GM PROTEIN 4. RD TO FOLLOW-UP 2-3 DAYS, HIGH RISK KULWINDER LABOY MBA, RD
--- NOTE | 2020-11-06 19:26 | NUR ---
GAVE REPORT TO RELINER NURSE. PATIENT CONTINUES TO BE IN CRITICAL CONDITION.
--- NOTE | 2020-11-06 19:35 | NUR ---
RECEIVED PATIENT IN BED , A X O X3 , ON O2 4 LITER VIA N/C , S/P EXTUBATED TODAY , NPO FOR NOW AND WAIT FOR SWALLOW EVAL TOMORROW, STILL ON PRECEDEX 0.1 MCG/KG/HR VIA HERMELINDA PICC , SITE IS CLEAR. GEORGE CATHETER IN PLACE AND DRAINING TO GRAVITY, WILL CONTINUE TO MONITOR.
--- NOTE | 2020-11-06 21:08 | NUR ---
PT RESTING ON NC WATCHING TV. PT AWARE OF NOC BIPAP AND STATED SHE WILL PUT ON LATER BUT IS NOT READY FOR IT YET. I WILL CHECK BACK AT A LATER TIME AND/OR PT WILL CALL FOR NOC NIV.
[2020-11-07] VITALS (15 sets, daily range): BP systolic 102–150; BP diastolic 53–97
[2020-11-07] MEDS: BLOOD GLUCOSE MONITORING 1 DEV DEV FS SCH ×5 (00:06→18:07)
--- NOTE | 2020-11-07 01:08 | NUR ---
PT IS AWAKE AND WATCHING TV W/ NO S/S OF DISTRESS AT THIS TIME. PT ASKED ME TO COME BACK AT A LATER TIME STATING SHE DOES NOT WANT BIPAP AT THIS TIME & WILL CONTINUE TO MONITOR.
[2020-11-07] MEDS: Z-GUARD PASTE TP SCH ×2 (01:21→13:00)
[2020-11-07 06:26] LABS: BASOPHILS # (AUTO) 0.1 K/uL (0.00-0.22); BASOPHILS % (AUTO) 1.4 % (0.0-2.0); EOSINOPHILS # (AUTO) 0.4 K/uL (0-0.4); EOSINOPHILS % (AUTO) 5.8 % (0.0-4.0); HEMATOCRIT 31.8 % (36-48); HEMOGLOBIN 10.1 g/dL (12.0-16.0); LYMPHOCYTES # (AUTO) 1.8 K/uL (2.5-16.5); LYMPHOCYTES % (AUTO) 24.6 % (20.5-51.1); MEAN CORPUSCULAR HEMOGLOBIN 29 pg (27-31); MEAN CORPUSCULAR HGB CONC 32 g/dL (33-37); MEAN CORPUSCULAR VOLUME 91.2 fL (80-94); MONOCYTES # (AUTO) 0.6 K/uL (0.8-1.0); MONOCYTES % (AUTO) 8.1 % (1.7-9.3); NEUTROPHILS # (AUTO) 4.5 K/uL (1.8-7.7); NEUTROPHILS % (AUTO) 60.1 % (42.2-75.2); PLATELET COUNT (AUTO) 278 K/uL (140-450); RED BLOOD CELL COUNT(AUTO) 3.49 MIL/uL (4.20-5.40); RED CELL DISTRIBUTION WIDTH 16.1 % (11.6-13.7); WHITE BLOOD COUNT (AUTO) 7.4 K/uL (4.8-10.8)
--- NOTE | 2020-11-07 07:04 | NUR ---
PATIENT KEEP TOOK OFF OXYGEN , O2 SAT IS AROUND 90, ENDORSED TO DAY NURSE.
[2020-11-07 07:12] LABS: ALBUMIN 2.3 g/dL (3.4-5.0); ANION GAP 12.7 (8-16); CARBON DIOXIDE 30.8 mmol/L (21-32); CREATININE 0.5 mg/dL (0.6-1.3); POTASSIUM 3.5 mmol/L (3.5-5.1); TOTAL BILIRUBIN 0.5 mg/dL (0.0-1.0)
--- NOTE | 2020-11-07 07:22 | NUR ---
BEDSIDE REPORT RECEIVED FROM CHOCOLATE COATER NURSE, PT AWAKE ALERT, RESTING QUIETLY, RESP EVEN UNLABORED ON 2L NC O2, SKIN WARM DRY COLOR WNL, ON BOILER MECHANIC, VITALS DOCUMENTED, PT ON PRECEDEX DRIP AT 0.1, PICC LINE TO R UPPER ARM, SITE WNL, PT NPO UNTIL SWALLOW EVAL, ABD SOFT, NON DISTENDED, GEORGE IN PLACE, DRAINING YELLOW URINE TO GRAVITY, HEEL PROTECTORS IN PLACE, OPTIFOAM TO SACRUM, ALL SAFETY MEASURES IN PLACE, PLAN OF CARE REVIEWED, WILL CONTINUE TO MONITOR.
[2020-11-07] MEDS: BUDESONIDE 0.5 MG/2 ML NEBU INH SCH ×2 (07:30→19:37)
--- NOTE | 2020-11-07 07:43 | NUR ---
EDUCATION PROVIDED TO PATIENT ON INCENTIVE SPIROMETRY ENCOURAGED PATIENT WITH ACKNOWLEDGEMENT TO USE INCENTIVE SPIROMETRY EVERY 2 HOURS WHILE AWAKE
--- NOTE | 2020-11-07 07:43 | NUR ---
PRECEDX DRIP STOPPED NOW, PT WAS EXTUBATED YESTERDAY, CURRENTLY CALM, RELAXED ON ROOM AIR, NO ACUTE DISTRESS AT THIS TIME,. Addendum: 11/07/20 at 0749 by Anna Kim RN O2 VIA 2L NC, NOT ROOM AIR
--- NOTE | 2020-11-07 07:44 | NUR ---
SATURATION 97% ON HUMIDIFIED SUPPLEMENTAL OXYGEN AT 3 LPM VIA NC POST HHN THERAPY TITRATED FIO2 TO 2LPM PENG/RN NOTIFIED
[2020-11-07] MEDS: PANTOPRAZOLE 40 MG INJ VIAL IVP SCH (07:52)
[2020-11-07] MEDS: DEXAMETHASONE 4 MG/ML VIAL IVP SCH (07:53)
[2020-11-07] MEDS: ENOXAPARIN 40 MG/0.4 ML SYR SUBQ SCH (07:54)
[2020-11-07] MEDS: FUROSEMIDE 20 MG/2 ML VIAL IVP SCH (07:54)
[2020-11-07] MEDS: INSULIN LANTUS 100 UNITS/ML 10 ML VIAL SUBQ SCH ×2 (07:55→21:00)
[2020-11-07] MEDS: DOCUSATE 100 MG/10 ML UDC GT SCH (07:55)
--- NOTE | 2020-11-07 09:55 | NUR ---
DR LEONARD AT BEDSIDE
--- NOTE | 2020-11-07 10:01 | NUR ---
PHYSICAL THERAPY RIGOBERTO AT BEDSIDE
[2020-11-07] MEDS: ALBUTEROL SULFATE/IPRATROPIU 3 ML SOL IH SCH ×2 (13:23→19:00)
--- NOTE | 2020-11-07 14:15 | NUR ---
SPEECH THERAPIST AT BEDSIDE FOR SWALLOW EVAL
--- NOTE | 2020-11-07 15:54 | NUR ---
*ST: Bedside Swallow Evaluation* Pt is 60 yo F admitted from home 10/17/2020 c worsening SOB, intubated 10/19-11/06. Work-up noted Pt +COVID-19. PMHx baseline 3L O2 nc, COPD, intubated multiple times 2/2 COPD exacerbation, morbidly obese, HTN, DM. CT Chest 11/06 - LLL cavitary mass wc was nonspecific; patchy bilat groundglass consolidations. Cleared with RNAnna, for BDSE. Pt now on 3L O2 nc, O2 saturation labial, ranging from 84-97% during session. Pt seen bedside, on +COVID-19 isolation precautions, alert, easily distracted, speaking in clear vocal quality. Noted some sores on tongue. Ice chips x4, ~2oz apple sauce, ~2oz canned MS pears, ~75% of main meal tray (MS pork loin, zucchini and yams), and 4oz thin apple juice given with feeding assistance. Pt consistently stripped 100% of solid boli from tsp, engaged in mastication, no spillage, no residue, no overt coughing nor throat clearing. With thin apple juice, Pt engaged in sequential straw sip without spillage and coughed 1x during intake. Plan of care d/w pt and pts RN. P: Rec Mechanical Soft/Thin Liquids, feed-assist Follow safe swallow strategies, oral care, aspiration precautions Nsg to monitor and notify [employer] of acute changes in status -Leyla Barcenas MA, [facility]-[employer] Addendum: 11/07/20 at [address] Amended: Links added.
--- NOTE | 2020-11-07 17:05 | NUR ---
LOOSE BMX1, PERICARE DONE, CHG WIPE DONE, INTER DRY REPLACED, GEORGE CARE DONE.
[2020-11-07] MEDS: INSULIN LISPRO SLIDING SCALE 100 UNITS/ML VIAL SUBQ PRN ×2 (17:55→22:30)
--- NOTE | 2020-11-07 18:02 | NUR ---
4 UNITS OF INSULIN GIVEN PER SLIDING SCALE FOR BS 219, PT ASSISTED WITH DINNER, PT CLFIF 30% OF DINNER WELL
--- NOTE | 2020-11-07 19:29 | NUR ---
RECEIVED PATIENT IN BED WATCHING TV, ON O2 2 LITER VIA N/C WITH O2 SAT 98% , NO IV DRIP , ONLY SL, SITE IS CLEAR, SINUS TACH ON THE MONITOR WITH RATE OF 106, WAITING FOR THE TELE BED TO TRANSFER PER ORDER.
[2020-11-07] MEDS: ACETAMINOPHEN 325 MG TAB PO PRN (21:12)
--- NOTE | 2020-11-07 21:43 | NUR ---
BS 176 LANTUS NOT GIVEN BECAUSE PATIENT IS GOING TO NPO PER DR AYALA'S ORDER.
--- NOTE | 2020-11-07 23:00 | NUR ---
REPORT GIVEN TO MILADYS , TRANSFER PATIENT TO TELEMETRY ROOM 123, INFORMED DAUGHTER - ABOUT TRANSFER.
--- NOTE | 2020-11-07 23:00 | NUR ---
RECEIVED BEDSIDE REPORT FROM ICU NURSE FOR CONTINUITY OF CARE. PT ARRIVED VIA ICU BED AND TRANSFERRED TO TELE BED, 123 A. PT WAS TRANSFERRED BY FOUR STAFF MEMBERS DUE TO OBESITY. PT HAD A BM AND WAS CHANGED. PT TOLERATED IT WELL. A&OX2. ON 2L O2 NC WITH O2 SAT AT 96%. SR ON TELE MONITORING. GEORGE CATH IN PLACE. SKIN IS WARM AND DRY. OPTIFOAM IN PLACE ON SACRAL REGION. PICC LINE IN THE RIGHT UA SALINE LOCKED. ASPIRATION PRECAUTIONS IN PLACE. PLAN OF CARE DISCUSSED. DROPLET PRECAUTIONS IN PLACE WELL.
[2020-11-08] VITALS: BP 119/78
[2020-11-08] MEDS: ALBUTEROL SULFATE/IPRATROPIU 3 ML SOL IH SCH ×4 (01:00→19:00)
--- NOTE | 2020-11-08 01:08 | NUR ---
PT REFUSING BIPAP AT THIS TIME NO S/S OF DISTRESS. PT SPO2 95% ON 2LNC WILL [id number] TO MONITOR.
--- NOTE | 2020-11-08 01:09 | NUR ---
ROUNDED ON PT. ASKED PT WITH RT TO PLACE CPAP ON FOR SLEEP APNEA. PT REFUSED. PT DOES NOT WANT MACHINE ON FACE. NC ON 2L O2 STILL IN PLACE. O2 SAT IS 95%. BREATHING IS UNLABORED. GAVE EDUCATION ON IMPORTANCE OF KEEPING NC IN PLACE. PT VERBALIZED UNDERSTANDING. WILL CONTINUE TO MONITOR.
[2020-11-08] MEDS: Z-GUARD PASTE TP SCH ×2 (01:28→13:37)
--- NOTE | 2020-11-08 03:00 | NUR ---
ROUNDED ON PT. SHE HAD NC IN PLACE AT 2L O2. O2 SAT IS 95%. NO RESPIRATORY DISTRESS. PT IS STABLE.
[2020-11-08 04:00] VITALS: BP 132/72
--- NOTE | 2020-11-08 05:00 | NUR ---
PT HAD ANOTHER BM. PT WAS CHANGED AND REPOSITIONED. BUTTOCKS WAS CLEANSED WITH NS AND PATTED DRY. HYDRAGUARD WAS PLACED ON BUTTOCKS AND SACRAL REGION. NEW OPTIFOAM WAS PLACED THE PREVIOUS ONE WAS SOILED. INTERDRY WAS PLACED ON THE ABDOMINAL FOLD. REDNESS APPARENT ON THE PERINEAL REGION BETWEEN THE THIGHS. VERSATEL PLACED ON THE BLISTER ON THE RIGHT HEEL. PADDED BOOTS BACK IN PLACE. PT IS STABLE. TOLERATED THIS WELL.
[2020-11-08] MEDS: BLOOD GLUCOSE MONITORING 1 DEV DEV FS SCH ×3 (05:46→18:07)
[2020-11-08] MEDS: INSULIN LISPRO SLIDING SCALE 100 UNITS/ML VIAL SUBQ PRN ×3 (05:48→18:07)
[2020-11-08 05:52] LABS: BASOPHILS # (AUTO) 0.1 K/uL (0.00-0.22); EOSINOPHILS # (AUTO) 0.3 K/uL (0-0.4); EOSINOPHILS % (AUTO) 3.7 % (0.0-4.0); HEMATOCRIT 32.7 % (36-48); HEMOGLOBIN 10.4 g/dL (12.0-16.0); LYMPHOCYTES % (AUTO) 27.8 % (20.5-51.1); MEAN CORPUSCULAR HEMOGLOBIN 29 pg (27-31); MEAN CORPUSCULAR HGB CONC 32 g/dL (33-37); MEAN CORPUSCULAR VOLUME 91.1 fL (80-94); MONOCYTES # (AUTO) 0.6 K/uL (0.8-1.0); MONOCYTES % (AUTO) 8.7 % (1.7-9.3); NEUTROPHILS # (AUTO) 4.2 K/uL (1.8-7.7); NEUTROPHILS % (AUTO) 58.8 % (42.2-75.2); PLATELET COUNT (AUTO) 280 K/uL (140-450); RED BLOOD CELL COUNT(AUTO) 3.58 MIL/uL (4.20-5.40); RED CELL DISTRIBUTION WIDTH 16.3 % (11.6-13.7); WHITE BLOOD COUNT (AUTO) 7.2 K/uL (4.8-10.8)
[2020-11-08 06:41] LABS: ALBUMIN 2.5 g/dL (3.4-5.0); ANION GAP 16.8 (8-16); CARBON DIOXIDE 27.6 mmol/L (21-32); CREATININE 0.7 mg/dL (0.6-1.3); POTASSIUM 3.4 mmol/L (3.5-5.1); TOTAL BILIRUBIN 0.6 mg/dL (0.0-1.0)
--- NOTE | 2020-11-08 06:42 | NUR ---
MADE ROUNDS ON PT. SHE IS SLEEPING IN SEMI FOWLERS POSITION. PILLOWS ARE IN PLACE TO SUPPORT EXTREMITIES. BLANKETS IN PLACE WELL. O2 SAT IS 95% ON 2L O2 NC. NO DISTRESS NOTED.
--- NOTE | 2020-11-08 07:20 | NUR ---
ENDORSED PT TO DAY SHIFT NURSE FOR CONTINUITY OF CARE. PT IS AWAKE AND STABLE. O2 SAT IS 97% ON 2L O2 NC. PLAN OF CARE DISCUSSED.
--- NOTE | 2020-11-08 07:22 | NUR ---
RECEIVED PATIENT FROM NIGHT NURSE. PATIENT IN BED AWAKE AND ALERT. RESP EVEN AND UNLABORED ON 2LNC. NO NOTED ACUTE S/S DISTRESS. HERMELINDA PICC DECLAN. ARIEL IN PLACE. DROPLET PRECAUTION OBSERVED. SAFETY MEASURES IN PLACE. CALL LIGHT WITHIN REACH. WILL CONTINUE TO MONITOR.
[2020-11-08] MEDS: BUDESONIDE 0.5 MG/2 ML NEBU INH SCH ×2 (07:30→19:30)
[2020-11-08 08:00] VITALS: BP 130/67
[2020-11-08] MEDS: INSULIN LANTUS 100 UNITS/ML 10 ML VIAL SUBQ SCH ×2 (09:34→21:53)
[2020-11-08] MEDS: ENOXAPARIN 40 MG/0.4 ML SYR SUBQ SCH (09:34)
[2020-11-08] MEDS: PANTOPRAZOLE 40 MG INJ VIAL IVP SCH (09:37)
[2020-11-08] MEDS: DEXAMETHASONE 4 MG/ML VIAL IVP SCH (09:40)
[2020-11-08] MEDS: FUROSEMIDE 20 MG/2 ML VIAL IVP SCH (09:40)
[2020-11-08] MEDS: DOCUSATE 100 MG/10 ML UDC GT SCH (09:43)
--- NOTE | 2020-11-08 10:15 | NUR ---
PATIENT IN BED AWAKE AND ALERT. RESPONDING APPROPRIATELY. RESP EVEN AND UNLABORED ON 2L NC. DENIED OF PAIN AT THIS TIME. HERMELINDA PICC INTACT AND PATENT. SL. MORNING ROUTINE MEDICATIONS GIVEN. PATIENT TOLERATED WELL. PLAN OF CARE DISCUSSED, PATIENT VERBALIZED UNDERSTANDING. CALL LIGHT WITHIN REACH .WILL CONTINUE TO MONITOR.
[2020-11-08 12:00] VITALS: BP 149/86
--- NOTE | 2020-11-08 13:05 | NUR ---
BLOOD SUGAR 210. INSULIN COVERAGE PROVIDED PER SLIDING SCALE. NO NOTED ACUTE S/S DISTRESS. CALL LIGHT WITHIN REACH. WILL CONTINUE TO MONITOR.
[2020-11-08] MEDS ORDERED: POTASSIUM CHLORIDE 10 MEQ TABER PO SCH (13:39)
--- NOTE | 2020-11-08 15:38 | NUR ---
11/08/20 RD FOLLOW UP COMPLETED PLEASE REFER TO NUTRITION ASSESSMENT UNDER CARE ACTIVITY FOR ESTIMATED NUTRITIONAL NEEDS. 1. CONT. MECHANICAL SOFT CCHO DIET TOLERATED 2. RECOMMEND GLUCERNA TID 3. PROVIDE ASSISTANCE WITH MEALS IF NEEDED 4. RD TO FOLLOW-UP 2-3 DAYS, HIGH RISK DWAIN ADAMS, MARTA
[2020-11-08 16:00] VITALS: BP 136/69
--- NOTE | 2020-11-08 16:37 | NUR ---
PERSONAL CARE RENDERED. TOLERATED WELL. RESP EVEN AND UNLABORED ON 2L NC. CALL LIGHT WITHIN REACH. WILL CONTINUE TO MONITOR.
--- NOTE | 2020-11-08 18:08 | NUR ---
BLOOD SUGAR 229. INSULIN COVERAGE PROVIDED. PATIENT IN BED AWAKE AND ALERT WATCHING TV. NO NOTED ACUTE S/S DISTRESS. CALL LIGHT WITHIN REACH. WILL CONTINUE TO MONITOR.
--- NOTE | 2020-11-08 19:20 | NUR ---
ENDORSED PATIENT TO NIGHT NURSE. PATIENT IN STABLE CONDITION.
[2020-11-08 20:01] VITALS: BP 132/55
[2020-11-09] VITALS: BP 150/81
[2020-11-09] MEDS: BLOOD GLUCOSE MONITORING 1 DEV DEV FS SCH ×3 (00:30→17:32)
[2020-11-09] MEDS: Z-GUARD PASTE TP SCH ×2 (01:36→13:00)
[2020-11-09 04:00] VITALS: BP 154/61
--- NOTE | 2020-11-09 04:25 | NUR ---
Patient received from am shift nurse during rounds . Patient was free of any s/s of distress and was on 2L via NC with breathing even and unlabored. Patient received her 2100 25 units of lantus and BS at that time was 115. PM care was given with MEDICAL CASE MANAGER and patient was turned for comfort. RN reassessed the patient BS at 0000 and BS had risen to 150 but she had just finished her snack so insulin was held. Patient remained stable with 0 s/s of distress throughout the shift with breathing even and unlabored and tolerating the NC well with no SOB noted. Will continue to monitor through the end of the shift and will endorse care to am shift for continuity of care.
[2020-11-09] MEDS: INSULIN LISPRO SLIDING SCALE 100 UNITS/ML VIAL SUBQ PRN ×4 (05:46→20:14)
--- NOTE | 2020-11-09 06:01 | NUR ---
Blood sugar 168 Humalog 2 units given
--- NOTE | 2020-11-09 07:20 | NUR ---
RECEIVED PT FROM BUSINESS BANKING OFFICER NURSE, PT IS AWAKE AND ALERT IN BED, PT IS ON 2LNC, IV NOTED TO HERMELINDA PICC LINE SALINE LOCK, GEORGE PRESENT, HEEL PROTECTORS PRESENT, TELE MONITOR ON, SAFETY AND FALL PRECAUTIONS IN PLACE, WILL CONTINUE TO MONITOR.
[2020-11-09 08:00] VITALS: BP 152/77
[2020-11-09] MEDS: DOCUSATE 100 MG/10 ML UDC GT SCH (09:56)
[2020-11-09] MEDS: FUROSEMIDE 20 MG/2 ML VIAL IVP SCH (09:56)
[2020-11-09] MEDS: DEXAMETHASONE 4 MG/ML VIAL IVP SCH (09:57)
[2020-11-09] MEDS: PANTOPRAZOLE 40 MG INJ VIAL IVP SCH (09:57)
[2020-11-09] MEDS: INSULIN LANTUS 100 UNITS/ML 10 ML VIAL SUBQ SCH ×2 (10:00→20:10)
[2020-11-09] MEDS: ENOXAPARIN 40 MG/0.4 ML SYR SUBQ SCH (10:01)
[2020-11-09] MEDS ORDERED: HUMSLIDE SUBQ (10:29)
[2020-11-09] MEDS ORDERED: ALBU3SOL83 IH (10:29)
[2020-11-09] MEDS ORDERED: ACET-1182 PO (10:29)
[2020-11-09] MEDS ORDERED: LOV40I SUBQ (10:29)
[2020-11-09] MEDS ORDERED: LANTUS SUBQ (10:29)
--- NOTE | 2020-11-09 10:32 | NUR ---
SCHEDULED MEDICATIONS ADMINISTERED, PT EDUCATION PROVIDED, BP 115/66, HR 78, RR 18, EDUCATION PROVIDED, WILL CONTINUE TO MONITOR.
--- NOTE | 2020-11-09 11:50 | NUR ---
SCHEDULED INSULIN ADMINISTERED 6 UNITS FOR 273 BS LEVEL, EDUCATION PROVIDED, WILL CONTINUE TO MONITOR.
--- NOTE | 2020-11-09 14:12 | NUR ---
SPOKE WITH PT DAUGHTER AND MADE PHONE CALL FROM HOSPITAL ROOM TO DAUGHTER. PT WAS ABLE TO HOLD CONVERSATION, NO SIGNS OF DISTRESS NOTED, EDUCATION PROVIDED REGARDING PLAN TO D/C SOON. WILL CONTINUE TO MONITOR.
--- NOTE | 2020-11-09 16:18 | NUR ---
GEORGE CATHETER REMOVED, 10 ML REMOVED FROM [facility], PT TOLERATED REMOVAL WELL, NO SIGNS OF DISTRESS NOTED, WILL CONTINUE TO MONITOR FOR URINARY OUTPUT.
--- NOTE | 2020-11-09 17:33 | NUR ---
INSULIN COVERAGE NEEDED FOR BS 354, 10 UNITS, PT IS AWAKE AND ALERT IN BED, STILL SEEMS TO BE CONFUSED, FORGOT BIRTHDAY, WILL CONTINUE TO MONITOR .
[2020-11-09 17:59] VITALS: BP 126/65
--- NOTE | 2020-11-09 18:47 | NUR ---
REPORT GIVEN TO SASKIA AT [facility], SHE REQUESTED A FOLLOW UP CALL [phone] ONCE PATIENT IS PICKED UP FROM [facility]. WILL ENDORSE TO ONCOMING NURSE.
--- NOTE | 2020-11-09 19:10 | NUR ---
ENDORSED PT TO EXPLOSIVES WORKER NURSE FOR CONTINUITY OF CARE.
--- NOTE | 2020-11-09 19:20 | NUR ---
RECEIVED BEDSIDE REPORT FROM DAY SHIFT NURSE. PATIENT IS AWAKE RESPIRATION EVEN UNLABORED ON 2L NC O2. NO DISTRESS NOTED. SKIN IS WARM AND DRY. RIGHT UPPER PICC LINE NOTED. PLAN OF CARE WAS DISCUSSED. ALL SAFETY MEASURES IN PLACE. AWAITING TO BE PICK IT UP. BED IS AT LOW POSITION. CALL LIGHT WITHIN REACH. WILL CONTINUE TO MONITOR.
[2020-11-09 20:00] VITALS: BP 150/76
--- NOTE | 2020-11-09 20:10 | NUR ---
ALL SCHEDULED MEDS GIVEN PER ORDER. PATIENT BLOOD SUGAR 312. COVERAGE GIVEN PER ORDER. WILL CONTINUE TO MONITOR
--- NOTE | 2020-11-09 20:30 | NUR ---
REMOVED PATIENT RIGHT UPPER PICC LINE PER MD ORDER. NO ACTIVE BLEEDING NOTED. WILL CONTINUE TO MONITOR
--- NOTE | 2020-11-09 20:45 | NUR ---
PATIENT LEFT THE FACILITY WITH BELONGINGS AND PAPERWORK ACCOMPANIED BY 2 KAREN DICKINSON PERSONNEL HEADING TO [facility].
--- NOTE | 2020-11-09 20:50 | NUR ---
NOTIFIED PATIENT DAUGHTER THAT THE PATIENT LEFT THE FACILITY ALREADY.
== END 2020-11-09 20:45 | DRG 207 ==
LOC: MED 16:53 → MTU 21:45 → MIC 10-19 17:00 → MTU 11-07 22:40
PROVIDERS: ADMIT Hospitalist; ATTEND Hospitalist
PROC: 5A09457 Assistance with Respiratory Ventilation, 24-96 Consecutive Hours, Continuous Positive Airway Pressure (ICD-10-PCS; 2020-10-17)
PROC: 5A1955Z Respiratory Ventilation, Greater than 96 Consecutive Hours (ICD-10-PCS; principal; 2020-10-19)
PROC: 0BH17EZ Insertion of Endotracheal Airway into Trachea, Via Natural or Artificial Opening (ICD-10-PCS; 2020-10-19)
PROC: 02HV33Z Insertion of Infusion Device into Superior Vena Cava, Percutaneous Approach (ICD-10-PCS; 2020-10-20)
PROC: XW033E5 Introduction of Remdesivir Anti-infective into Peripheral Vein, Percutaneous Approach, New Technology Group 5 (ICD-10-PCS; 2020-10-27)
DX: U07.1 COVID-19 (principal); R65.11 Systemic inflammatory response syndrome (SIRS) of non-infectious origin with acute organ dysfunction; J12.82 Pneumonia due to coronavirus disease 2019; J96.21 Acute and chronic respiratory failure with hypoxia; D68.69 Other thrombophilia; J44.0 Chronic obstructive pulmonary disease with (acute) lower respiratory infection; Z68.44 Body mass index [BMI] 60.0-69.9, adult; E87.1 Hypo-osmolality and hyponatremia; N17.9 Acute kidney failure, unspecified; E66.01 Morbid (severe) obesity due to excess calories; E11.65 Type 2 diabetes mellitus with hyperglycemia; D64.9 Anemia, unspecified; G47.33 Obstructive sleep apnea (adult) (pediatric); I50.9 Heart failure, unspecified; I11.0 Hypertensive heart disease with heart failure; Z99.81 Dependence on supplemental oxygen; Z83.3 Family history of diabetes mellitus; Z82.49 Family history of ischemic heart disease and other diseases of the circulatory system; Z83.6 Family history of other diseases of the respiratory system; Z87.891 Personal history of nicotine dependence
CPT/HCPCS: 36415; 36600; 51702; 71045; 71250; 74018; 80048; 80053; 82803; 82948; 83735; 83880; 84100; 84484; 85025; 85379; 86886; 86900; 86901; 86920; 87040; 87070; 87205; 92610; 93005; 94003; 94640; 96365; 96375; 97110; 97112; 97161-GP; 97530; 99291; C9113; J0456; J0696; J1100; J1630; J1644; J1650; J1815; J1940; J2060; J2250; J2543; J2704; J2765; J2930; J3475; J3480; J7030; J7060; J7626